=== PATIENT | male | born 1950 | race Caucasian/White ===

== ENCOUNTER 2017-12-20 16:36 | Inpatient (IN) ==
--- NOTE | 2017-12-20 20:02 | Emergency Department Note ---
Disposition Clinical Impression: History of treatment for malignancy, Cellulitis, Anemia, Elevated C-reactive protein (CRP), Lung mass Disposition: Admitted As Inpatient Referrals: NONE,PCP [Primary Care Provider] - Forms: ED Satisfaction Letter General Adult HPI - General Chief complaint: ED Wound/Laceration Stated complaint: Wound on back Source: patient Limitations: no limitations - History of Present Illness HPI Narrative: 67-year-old male with a history of malignancy reports emergency department the advice of his wound care physician Veronica Caicedo MD. the patient has evidently been treated for an open wound with cellulitis left posterior chest wall. The patient is being treated with antibiotics and has been poorly responsive. Per the wound care physician, the patient was seen today, and their recommendation was for the patient to come to the emergency department and be admitted for IV antibiotics. The patient's recent wound culture grew pseudomonas aeruginosa. The patient denies diabetes. There is no history of fever. He denies chest pain shortness breath abdominal pain leg swelling or pain coughing up blood or syncope. No vomiting or diarrhea. No difficulty moving the arms or legs and dependently. The patient denies any acute complaints or concerns but does note that his wound is still present and expresses concerns via his physician's advice regarding non-improving cellulitis and wound issues. The reports are that the patient has had wound packings placed recurrently. He is not sure what antibiotic he is on. Pain Scale: 7 - Related Data Home Medications Medication Instructions Recorded Confirmed Albuterol Neb [AccuNeb] 0.63 mg IH Q4H 09/06/15 12/20/17 Calcium Carbonate/Vitamin D3 1 each PO DAILY 09/06/15 12/20/17 [Calcium 500 + D Tablet] FentaNYL PATCH [Duragesic] 100 mcg TD Q72H 09/06/15 12/20/17 Ipratropium/Albuterol Neb [Duoneb] 3 ml IH Q6HR 09/06/15 12/20/17 Magnesium Oxide [Magnesium] 400 mg PO BID 09/06/15 12/20/17 Multivitamin [Multivitamins] 1 tab PO DAILY 09/06/15 12/20/17 Oxycodone HCl/Acetaminophen 1 tab PO Q6H PRN 09/06/15 12/20/17 [Percocet 10-325 mg Tablet] Oxygen 2 l IH HS 09/06/15 12/20/17 Albuterol Sulfate [Albuterol 1 puff IH AD 12/20/17 12/20/17 Inhaler] Fluticasone/Salmeterol [Advair 1 puff IH BID 12/20/17 12/20/17 500-50 Diskus] Previous Rx's Medication Instructions Recorded Docusate [Colace] 100 mg PO BID #60 capsule 07/13/15 Ascorbic Acid [Vitamin C] 500 mg PO DAILY #30 tablet 11/08/15 Cyanocobalamin (B-12) [Vitamin B12] 1,000 mcg PO DAILY #30 tablet 11/08/15 Ferrous Sulfate [Iron] 325 mg PO DAILY #30 capsule.er 12/11/16 Allergies Allergy/AdvReac Type Severity Reaction Status Date / Time No Known Allergies Allergy Verified 12/12/17 14:43 All systems ED: reviewed and negative except as stated. Past Medical History - Past Medical History Medical history: Reports: cancer, other Surgical history: Reports: no surgical history Psychiatric history: Reports: no psych history - Social History Smoking Status: Current every day smoker Smokeless Tobacco Status: No Alcohol use: Reports: none Drug use: Reports: none Physical Exam - General Limitations: no limitations General appearance: alert, in no apparent distress - Eye Eye exam: Present: normal appearance, PERRL, EOMI. Absent: scleral icterus - ENT ENT exam: normal exam, normal oropharynx, mucous membranes moist, TM's normal bilaterally, normal external ear exam - Neck Neck exam: Present: normal inspection, full ROM, trachea midline - Chest Chest inspection: Present: symmetric chest wall rise, tenderness, other (Wound left posterior chest medial to the scapula open drainage with cellulitic change no evidence of crepitance or blackening or blistering or streaking angitis way from the area, a large area of erythema is noted. I do not appreciate fluctuance.). Absent: normal inspection - Respiratory Respiratory exam: Present: normal lung sounds bilaterally. Absent: respiratory distress, wheezes, accessory muscle use, prolonged expiratory phase - Cardiovascular Cardiovascular exam: Present: regular rate, normal rhythm, normal heart sounds - Abdominal Exam Abdominal exam: Present: soft, Non-Tender. Absent: tenderness, distention, guarding, rebound, rigidity - Extremities Exam Extremities exam: Present: normal inspection, full ROM, normal capillary refill. Absent: tenderness, pedal edema, joint swelling, calf tenderness - Expanded Lower Extremity Exam Lower leg exam: Absent: Homans' sign Neurovascular/Tendon exam: Present: normal capillary refill. Absent: motor deficit, sensory deficit, tendon deficit, extremity cold to touch, pallor - Back Exam Back exam: Present: other (Posterior chest wall cellulitis with open wound as described above). Absent: normal inspection, tenderness, CVA tenderness (R), CVA tenderness (L) - Neurological Exam Neurological exam: Present: alert, oriented X3, CN II-XII intact. Absent: motor sensory deficit - Psychiatric Psychiatric exam: Present: normal affect, normal mood - Skin Skin exam: Present: warm, dry, other (No petechia or purpura) Course Vital Signs Temperature 97.8 F 12/20/17 16:37 Pulse Rate 95 12/20/17 16:37 Respiratory Rate 18 12/20/17 16:37 Blood Pressure 123/76 12/20/17 16:37 O2 Sat by Pulse Oximetry 98 12/20/17 16:37 Temperature 97.8 F 12/20/17 16:37 Pulse Rate 95 12/20/17 16:37 Respiratory Rate 18 12/20/17 16:37 Blood Pressure 123/76 12/20/17 16:37 O2 Sat by Pulse Oximetry 98 12/20/17 16:37 Oxygen Delivery Oxygen Delivery Room Air Medical Decision Making - MDM Narrative Medical decision making narrative: The patient appears to have not improving cellulitis, his CT scan indicates some air in the mass with apparent erosion of the mass into the chest wall through the skin. There is nothing to suggest lucas pneumothorax. IV vancomycin and Zosyn were ordered. The patient has a recent wound culture growing Pseudomonas. The cultures were sent. The patient is currently stable. Based on the patient's large mass, eroding into the chest wall and communicating with the external environment and notable gas in the mass as well as not improvement or worsening on current antibiotic therapy and the recommendation of the patient's technical specialist cytogenetics for hospital admission and IV antibiotics, I reviewed the case with the hospitalist on-call Dr. Bhat who discussed the case with CT surgery Dr. Kyle, the patient will be admitted to this institution for further evaluation. The patient is agreeable. He appears to be stable without evidence of overt sepsis. IV fluids were given. - Lab Data Lab results reviewed: Yes I reviewed the patient's lab results. Result diagrams: 12/20/17 20:01 12/20/17 20:01 Lab Results 12/20/17 12/20/17 12/20/17 Range/Units 20: 20: 20: WBC 10.0 (4.3-11.1) K/mcL RBC 5.07 (4.19-5.50) M/mcL Hgb 11.6 L (12.9-16.9) g/dL Hct 38.6 (37.5-50.1) % MCV 76.1 L (83.0-100.0) fL MCH 22.9 L (28.0-33.3) pg MCHC 30.1 L (31.6-35.5) g/dL RDW 15.6 H (11.5-14.5) % Plt Count 501 H (140-400) K/mcL MPV 8.7 L (9.4-12.4) fL Immature Gran % 0.2 (0-4) % Seg Neutrophils % 69.5 % Lymphocytes % 20.7 % Monocytes % 7.5 % Eosinophils % 1.4 % Basophils % 0.7 % Neutrophils # 6.9 (1.6-8.9) K/mcL Lymphocytes # 2.1 (0.6-4.6) K/mcL Monocytes # 0.8 (0.0-1.3) K/mcL Eosinophils # 0.1 (0.0-0.6) K/mcL Basophils # 0.1 (0.0-0.2) K/mcL Sodium 135 L (136-145) mEq/L Potassium 4.0 (3.5-5.1) mEq/L Chloride 99 (98-107) mEq/L Carbon Dioxide 30 H (23-29) mEq/L BUN 10 (8-23) mg/dL Creatinine 0.65 L (0.70-1.30) mg/dL Est GFR ( Amer) > 60 (> 60) Est GFR (Non-Af Amer) > 60 (> 60) BUN/Creatinine Ratio 15 (6-26) Glucose 145 H (70-105) mg/dL Calculated Osmolality 282 (280-300) Lactic Acid 0.8 (0.5-2.2) mmol/L Calcium 9.5 (8.6-10.3) mg/dL C-Reactive Protein 80 H (Less than 10) mg/L - Radiology Data Radiology results reviewed: Yes I reviewed the patient's radiology results.
[2017-12-20 20:11] LABS: Basophils # 0.1 K/mcL (0.0-0.2); Basophils % 0.7 %; Eosinophils # 0.1 K/mcL (0.0-0.6); Eosinophils % 1.4 %; Hematocrit 38.6 % (37.5-50.1); Hemoglobin 11.6 g/dL (12.9-16.9); Immature Granulocytes % 0.2 % (0-4); Lymphocytes # 2.1 K/mcL (0.6-4.6); Lymphocytes % 20.7 %; Mean Corpuscular HGB Conc 30.1 g/dL (31.6-35.5); Mean Corpuscular Hemoglobin 22.9 pg (28.0-33.3); Mean Corpuscular Volume 76.1 fL (83.0-100.0); Mean Platelet Volume 8.7 fL (9.4-12.4); Monocytes # 0.8 K/mcL (0.0-1.3); Monocytes % 7.5 %; Neutrophils # 6.9 K/mcL (1.6-8.9); Platelet Count 501 K/mcL (140-400); Red Blood Count 5.07 M/mcL (4.19-5.50); Red Cell Distribution Width 15.6 % (11.5-14.5); Segmented Neutrophils % 69.5 %
[2017-12-20 20:31] LABS: BUN/Creatinine Ratio 15 (6-26); Blood Urea Nitrogen 10 mg/dL (8-23); C-Reactive Protein 80 mg/L (Less than 10); Calcium 9.5 mg/dL (8.6-10.3); Carbon Dioxide 30 mEq/L (23-29); Chloride 99 mEq/L (98-107); Glucose 145 mg/dL (70-105); Osmolality,Calculated 282 (280-300); Sodium 135 mEq/L (136-145); eGFR For African Americans > 60 (> 60); eGFR For Non-African Americans > 60 (> 60)
[2017-12-20] MEDS ORDERED: Piperacillin/Tazobactam 3.375 GM in 0.9 % Sodium Chloride Mini Bag 100 ML IVPB ONE (22:13)
[2017-12-20] MEDS ORDERED: 0.9 % Sodium Chloride 1,000 ML IVC ONE (22:33)
[2017-12-21] MEDS: *HR* OxyCODONE/APAP 10/325 TABLET PO PRN ×4 (00:29→21:20)
[2017-12-21] MEDS ORDERED: Acetaminophen 325 MG TABLET PO PRN (02:44)
[2017-12-21] MEDS ORDERED: Naloxone 0.4 MG/ML INJ IVP PRN (02:44)
[2017-12-21] MEDS ORDERED: *HR* FentaNYL PATCH 50 MCG PATCH TD SCH (03:00)
[2017-12-21] MEDS ORDERED: Albuterol Neb 0.63 MG/3 ML VIAL IH SCH ×2 (03:00→04:00)
--- NOTE | 2017-12-21 03:45 | Internal Med History&Physical ---
Date of Encounter: 12/21/17 Time of Encounter: 02:00 Assessment and Plan (1) Tobacco abuse Current visit: Yes Status: Acute Nicotine patch placed (2) DVT prophylaxis Current visit: Yes Status: Acute Heparin SC (3) Abscess of skin Current visit: No Status: Acute Pt has chest wall wound. Culture shows pseudomonas. Place pt on zosyn. ER collect another wound culture and blood culture. Will f/u. - Consult cardiothoracic surgery for further management. Qualifiers: Site of cutaneous abscess: trunk Site of cutaneous abscess of trunk: chest wall Qualified Code(s): L02.213 - Cutaneous abscess of chest wall (4) Anemia Current visit: Yes Status: Acute Cont iron supplement Qualifiers: Anemia type: iron deficiency Qualified Code(s): D50.0 - Iron deficiency anemia secondary to blood loss (chronic) (5) Lung cancer Current visit: No Status: Suspected NSCLC s/p chemo and radiation. Pt will cont f/u with oncology as outpatient Qualifiers: Laterality: left Lung location: lower lobe of lung Qualified Code(s): C34.32 - Malignant neoplasm of lower lobe, left bronchus or lung Internal Medicine - H&P: HPI Chief complaint: Chest wall wound Admitted From: Home Plans for Post Hospital Care: Home History of present illness: Mr. 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 Pt has left chest wall wound b/o lung cancer metastasis. He is following oncology and wound care as outpatient and was found signs of infection of wound. Recent wound culture shows psuedomonas. Pt denies fever, chills. He has 3-4/10 constant pain. Pt has cough but at his baseline. He denies SOB. Pt has NSCLC since 2007 and had chemo and radiation therapy. Past Med Surg Social Fam HX - Past Medical History Medical history: cancer, other Psychiatric history: no psych history - Past Surgical History Surgical History: cholecystectomy - Social History Smoking Status: Current every day smoker Packs per day: 1/4 Smokeless Tobacco Status: No Alcohol use: none Drug use: none - Family History Brother Living Status: Cause of : Lung cancer Hx Family Cancer: Yes (Lung) Internal Medicine - H&P: Meds Docusate [Colace] 100 mg PO BID #60 capsule 07/13/15 [Rx] Albuterol Neb [AccuNeb] 0.63 mg IH Q4H 09/06/15 [History] Calcium Carbonate/Vitamin D3 [Calcium 500 + D Tablet] 1 each PO DAILY 09/06/15 [ History] FentaNYL PATCH [Duragesic] 100 mcg TD Q72H 09/06/15 [History] Ipratropium/Albuterol Neb [Duoneb] 3 ml IH Q6HR 09/06/15 [History] Magnesium Oxide [Magnesium] 400 mg PO BID 09/06/15 [History] Multivitamin [Multivitamins] 1 tab PO DAILY 09/06/15 [History] Oxycodone HCl/Acetaminophen [Percocet 10-325 mg Tablet] 1 tab PO Q6H PRN [History] Oxygen 2 l IH HS 09/06/15 [History] Ascorbic Acid [Vitamin C] 500 mg PO DAILY #30 tablet 11/08/15 [Rx] Cyanocobalamin (B-12) [Vitamin B12] 1,000 mcg PO DAILY #30 tablet 11/08/15 [Rx] Ferrous Sulfate [Iron] 325 mg PO DAILY #30 capsule.er 12/11/16 [Rx] Albuterol Sulfate [Albuterol Inhaler] 1 puff IH AD 12/20/17 [History] Fluticasone/Salmeterol [Advair 500-50 Diskus] 1 puff IH BID 12/20/17 [History] 3 Allergy/AdvReac Type Severity Reaction Status Date / Time No Known Allergies Allergy Verified 12/12/17 14:43 All Systems PM: A 10-system review of systems was performed and is negative for pertinent findings except as documented above in the HPI. - Constitutional Vitals: Temp Pulse Resp BP Pulse Ox 97.5 F L 92 14 135/80 98 12/20/17 23:32 12/20/17 23:32 12/20/17 23:32 12/20/17 23:32 12/20/17 23:32 General appearance: Present: A&O X 3, no acute distress, answers questions appropriately - Head Head exam: Present: atraumatic, normocephalic - Eye Eye exam: Present: PERRL, conjuntiva pink, sclera anicteric Pupils: Present: PERRL - Neck Neck exam general surgery: Present: supple, trachea midline. Absent: lymphadenopathy - Respiratory Respiratory exam: Present: CTAB. Absent: accessory muscle use, rales, rhonchi, wheezes Additional comments: Left posterior chest wall wound. - Cardiovascular Cardiovascular exam: Present: RRR, +S1, +S2. Absent: diastolic murmur, gallop, rubs, systolic murmur - GI/Abdominal GI/Abdominal exam: Present: normal bowel sounds, soft, no peritoneal signs. Absent: distended, tenderness - Extremities Exam Extremities exam: Present: warm, radial pulses palpable and symmetrical. Absent : calf tenderness, cyanotic, pedal edema - Neurological Exam Neurological exam: Present: CN II-XII intact, oriented X3, no focal deficits. Absent: pronater drift, facial droop, speech deficit - Skin Skin exam: Present: dry, intact Internal Med - H&P Results - Labs CBC & Chem 7: 12/20/17 20:01 12/20/17 20:01
[2017-12-21 04:52] LABS: Basophils # 0.1 K/mcL (0.0-0.2); Basophils % 0.7 %; Eosinophils # 0.1 K/mcL (0.0-0.6); Eosinophils % 1.2 %; Hematocrit 31.2 % (37.5-50.1); Immature Granulocytes % 0.2 % (0-4); Lymphocytes # 1.6 K/mcL (0.6-4.6); Lymphocytes % 18.8 %; Mean Corpuscular HGB Conc 30.4 g/dL (31.6-35.5); Mean Corpuscular Volume 75.5 fL (83.0-100.0); Mean Platelet Volume 9.3 fL (9.4-12.4); Monocytes # 0.6 K/mcL (0.0-1.3); Monocytes % 6.8 %; Neutrophils # 6.2 K/mcL (1.6-8.9); Platelet Count 434 K/mcL (140-400); Red Blood Count 4.13 M/mcL (4.19-5.50); Red Cell Distribution Width 15.6 % (11.5-14.5); Segmented Neutrophils % 72.3 %
[2017-12-21] MEDS: Ipratropium/Albuterol Neb 3 ML IH SCH ×4 (04:54→21:45)
[2017-12-21 04:57] LABS: Hemoglobin 9.5 g/dL (12.9-16.9)
[2017-12-21 05:09] LABS: BUN/Creatinine Ratio 14 (6-26); Blood Urea Nitrogen 7 mg/dL (8-23); Calcium 8.4 mg/dL (8.6-10.3); Carbon Dioxide 27 mEq/L (23-29); Chloride 106 mEq/L (98-107); Glucose 112 mg/dL (70-105); Magnesium 1.8 mg/dL (1.6-2.6); Osmolality,Calculated 281 (280-300); Potassium 3.8 mEq/L (3.5-5.1); Sodium 136 mEq/L (136-145); eGFR For African Americans > 60 (> 60); eGFR For Non-African Americans > 60 (> 60)
[2017-12-21] MEDS: *HR* Heparin 5,000 UNIT/ML VIAL SQ SCH ×2 (05:29→18:55)
[2017-12-21] MEDS: *HR* FentaNYL PATCH 100 MCG PATCH TD SCH (05:29)
--- NOTE | 2017-12-21 07:53 | Cardiothoracic Consult Note ---
Date of Encounter: 12/21/17 Time of Encounter: 07:51 Assessment and Plan (1) Abscess of skin Current Visit: No Status: Acute The assessment and plan as outlined above was discussed with the patient and/or family members who expressed understanding and agreement. All questions were answered. I feel that the patient should undergo urgent chemotherapy and radiation therapy. 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 His only surgical option will be extremely high risk surgery with probable pneumonectomy, chest wall resection, chest wall reconstruction with muscle flaps and possible muscle flap closure of the bronchus. This would need to be done in [place] where plastic surgery is available to perform muscle flaps. Qualifiers: Site of cutaneous abscess: trunk Site of cutaneous abscess of trunk: chest wall Qualified Code(s): L02.213 - Cutaneous abscess of chest wall - History of Present Illness History of present illness: Mr. Donis is a 67 year old male The patient is a 67-year-old gentleman with a long history of smoking. He used to smoke 2 packs of cigarettes per day, but now is down to 1 pack of cigarettes per day. He has a known left lower lobe mass which was invading the chest wall. This has perforated the chest wall. There is now air in the mass he has been told that he is not a candidate for chemotherapy or radiation therapy, because of infection and pus drainage from the tumor. Past Med Surg Social Fam HX - Past Medical History Medical history: cancer, other Psychiatric history: no psych history - Past Surgical History Surgical History: cholecystectomy - Social History Smoking Status: Current every day smoker Packs per day: 1/4 Smokeless Tobacco Status: No Alcohol use: none Drug use: none - Family History Brother Living Status: Cause of : Lung cancer Hx Family Cancer: Yes (Lung) Medications and Allergies Docusate [Colace] 100 mg PO BID #60 capsule 07/13/15 [Rx] Albuterol Neb [AccuNeb] 0.63 mg IH Q4H 09/06/15 [History] Calcium Carbonate/Vitamin D3 [Calcium 500 + D Tablet] 1 each PO DAILY 09/06/15 [ History] FentaNYL PATCH [Duragesic] 100 mcg TD Q72H 09/06/15 [History] Ipratropium/Albuterol Neb [Duoneb] 3 ml IH Q6HR 09/06/15 [History] Magnesium Oxide [Magnesium] 400 mg PO BID 09/06/15 [History] Multivitamin [Multivitamins] 1 tab PO DAILY 09/06/15 [History] Oxycodone HCl/Acetaminophen [Percocet 10-325 mg Tablet] 1 tab PO Q6H PRN [History] Oxygen 2 l IH HS 09/06/15 [History] Ascorbic Acid [Vitamin C] 500 mg PO DAILY #30 tablet 11/08/15 [Rx] Cyanocobalamin (B-12) [Vitamin B12] 1,000 mcg PO DAILY #30 tablet 11/08/15 [Rx] Ferrous Sulfate [Iron] 325 mg PO DAILY #30 capsule.er 12/11/16 [Rx] Albuterol Sulfate [Albuterol Inhaler] 1 puff IH AD 12/20/17 [History] Fluticasone/Salmeterol [Advair 500-50 Diskus] 1 puff IH BID 12/20/17 [History] 3 Allergy/AdvReac Type Severity Reaction Status Date / Time No Known Allergies Allergy Verified 12/12/17 14:43 All Systems Review: The remainder of the systems were reviewed and are negative Physical Examination Vital Signs, Last 4 Hours Temp Pulse Resp BP Pulse Ox 12/21/17 07:39 98.1 F 82 16 124/77 100 12/21/17 04:59 16 98 Lungs have decreased breath sounds in the left base. There is necrosis and cellulitis of the skin and the tumor has perforated out to the skin. There appears to be gross tumor involving the skin and chest wall. Results 12/21/17 03:36 12/21/17 03:36 Lab Results, Last 24 hours 12/21/17 12/21/17 03:36 03:36 WBC 8.6 Hgb 9.5 L D Hct 31.2 L Plt Count 434 H Sodium 136 Potassium 3.8 Chloride 106 Carbon Dioxide 27 BUN 7 L Creatinine 0.51 L Glucose 112 H Calcium 8.4 L Magnesium 1.8 Consult Discharge Plan - Plan Referrals: NONE,PCP [Primary Care Provider] -
[2017-12-21] MEDS: Ascorbic Acid 500 MG TABLET PO SCH (08:22)
[2017-12-21] MEDS: Magnesium Oxide 400 MG TABLET PO SCH ×2 (08:22→21:20)
[2017-12-21] MEDS: Nicotine 14 MG PATCH.TD24 TD SCH (08:22)
[2017-12-21] MEDS: Cyanocobalamin (B-12) 1,000 MCG TABLET PO SCH (08:22)
[2017-12-21] MEDS: Multivit/Ca/Min/Fe/FA 1 TAB TABLET PO SCH (08:22)
[2017-12-21] MEDS: Piperacillin/Tazobactam 3.375 GM in 0.9 % Sodium Chloride Mini Bag 100 ML IVPB SCH ×2 (08:22→17:15)
--- NOTE | 2017-12-21 09:17 | Event Note ---
Date of Encounter: 12/21/17 Time of Encounter: 09:14 Mr. 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 Pt has left chest wall wound b/o lung cancer metastasis. He is following oncology and wound care as outpatient and was found signs of infection of wound. Recent wound culture shows psuedomonas. Pt denies fever, chills. He has 3-4/10 constant pain. Pt has cough but at his baseline. He denies SOB. Pt has NSCLC since 2007 and had chemo and radiation therapy. CTS surgery was consulted, they recommended for chemotherapy and radiation. I consult oncologist, spoke to parveen. And they have ranged a biopsy with interventional radiologist. Patient is clinically doing well, he complains pain from the wound area 8 out of 10, sharp and wounf is draining some clear fluids.
[2017-12-21] MEDS: Budesonide/Formoterol 160/4.5 MDI IH SCH ×2 (11:13→21:45)
--- NOTE | 2017-12-21 14:54 | Oncology Inp Consult Note ---
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 He has completed concurrent chemoradiation with 75 Gy of radiation with Navelbine, cetuximab at the [facility] and he has had no prior evidence of radiographic recurrence. PET scan 12/05 as detailed above concerning for worsening disease burden and superimposed infection. He has a worsening left infrascapular abscess with presumed tumor involvement and culture proven pseudomonas infection. Awaiting second wound culture results and blood cx. Zosyn IV ATB. Cardiothoracic consult reviewed, appreciate recommendations. We will plan to proceed with core needle biopsy of the left lung mass. Following this we may discuss referral for surgical intervention with patient. If biopsy confirms malignancy recurrence he will likely not be candidate for chemotherapy until infection resolves or improves. Discussed plan with Dr. Nieves, patients treating oncologist. Plan as outlined above discussed with patient in details who understands and agrees with plan of care. - Data of Consult Patient: known to practice within the last 3 years Consult date: 12/21/17 Requesting Physician: Estefania Lara MD Primary Care Provider: PCP NONE - Consult Narrative Reason for consult: History of non small cell left lung cancer History of present illness: Mr. Donis is a 67 year old male with oncologic history significant for stage III T4 N1 M0 poorly differentiated lung cancer, [id number], with extension to left lower chest wall, diagnosis February 2008. Size 5 x 5.4 cm, squamous cell, poorly differentiated carcinoma. Prior treatment: Completed concurrent chemoradiation with 75 Gy of radiation with Navelbine, cetuximab at the [facility]. Sine this time he has had no evidence of radiographic recurrence and has been in remission. However, PET scan on 12/05/2017 showed interval worsening since August 2017 of disease burden in the left hemithorax extending through the chest wall involving ribs and subcutaneous tissues. Superimposed infection would be difficult to exclude. No uptake in the mediastinal lymph nodes and no disease below the diaphragm. This was discussed thoracic tumor board. Consensus was to send him for thoracic surgery for further wound debridement and possible biopsy to see if there is recurrence of cancer. He most recently presented to clinic following ER visit for left infrascapular abscess. Wound culture resulted pseudomonas. Stopped bactrim, started dual ATB therapy with Cipro and Omnicef [id number]. He was referred to [facility] wound care clinic, and thoracic surgery as discussed above. He presented to ER with increasing left chest wall pain and increased wound drainage concerning for worsening infection. Past Med Surg Social Fam HX - Past Medical History Medical history: cancer, other Psychiatric history: no psych history - Past Surgical History Surgical History: cholecystectomy - Social History Smoking Status: Current every day smoker Packs per day: 10/25 Smokeless Tobacco Status: No Alcohol use: none Drug use: none - Family History Brother Living Status: Cause of : Lung cancer Hx Family Cancer: Yes (Lung) Medications and Allergies RX: Docusate [Colace] 100 mg PO BID #60 capsule 07/13/15 [Rx] Albuterol Neb [AccuNeb] 0.63 mg IH Q4H 09/06/15 [History] Calcium Carbonate/Vitamin D3 [Calcium 500 + D Tablet] 1 each PO DAILY 09/06/15 [ History] FentaNYL PATCH [Duragesic] 100 mcg TD Q72H 09/06/15 [History] Ipratropium/Albuterol Neb [Duoneb] 3 ml IH Q6HR 09/06/15 [History] Magnesium Oxide [Magnesium] 400 mg PO BID 09/06/15 [History] Multivitamin [Multivitamins] 1 tab PO DAILY 09/06/15 [History] Oxycodone HCl/Acetaminophen [Percocet 10-325 mg Tablet] 1 tab PO Q6H PRN [History] RX: Oxygen 2 l IH HS 09/06/15 [History] Ascorbic Acid [Vitamin C] 500 mg PO DAILY #30 tablet 11/08/15 [Rx] Cyanocobalamin (B-12) [Vitamin B12] 1,000 mcg PO DAILY #30 tablet 11/08/15 [Rx] Ferrous Sulfate [Iron] 325 mg PO DAILY #30 capsule.er 12/11/16 [Rx] Fluticasone/Salmeterol [Advair 500-50 Diskus] 1 puff IH BID 12/20/17 [History] RX: Albuterol Sulfate [Albuterol Inhaler] 1 puff IH AD 12/20/17 [History] 3 Allergy/AdvReac Type Severity Reaction Status Date / Time No Known Allergies Allergy Verified 12/12/17 14:43 Constitutional: Present: as per HPI, fatigue, weight loss. Absent: chills, fever(s), frequent falls Eyes: Absent: change in vision Nose, mouth and throat: Absent: mouth lesions Cardiovascular: Absent: chest pain, irregular heart rhythm, palpitations Respiratory: Present: cough, dyspnea on exertion. Absent: hemoptysis Gastrointestinal: Absent: abdominal pain, dysphagia, hematemesis, hematochezia Additional comments: denies dysuria or hematuria Musculoskeletal: Absent: numbness, tingling Integumentary: Present: as per HPI Neurological: Absent: focal weakness Hematologic/Lymphatic: Present: as per HPI Oncology - Exam - Constitutional Vitals: Temp Pulse Resp BP Pulse Ox 98.9 F 71 14 114/66 97 12/21/17 11:00 12/21/17 11:00 12/21/17 11:00 12/21/17 11:00 12/21/17 11:00 General appearance: cooperative, no acute distress, no febrile Exam: chronically ill appearing - Head Head exam: Present: atraumatic - ENT ENT exam: Present: mucous membranes moist - Respiratory Respiratory exam: Present: CTAB - Cardiovascular Cardiovascular exam: Present: RRR, +S1, +S2 - GI/Abdominal GI/Abdominal exam: Present: normal bowel sounds, soft. Absent: tenderness - Extremities Exam Extremities exam: Absent: calf tenderness - Neurological Exam Neurological exam: Present: alert, oriented X3, no focal deficits, strengths equal and symetr throughout - Psychiatric Psychiatric exam: Present: normal affect, normal mood - Skin Skin exam: Present: normal color, warm Additional comments: left infrascapular abscess with surrounding induration and purulent drainage. Anterior left lower rib cage deformity. Oncology - Results Labs: Short CBC 12/21/17 Range/Units 03:36 WBC 8.6 (4.3-11.1) K/mcL Hgb 9.5 L D (12.9-16.9) g/dL Hct 31.2 L (37.5-50.1) % Plt Count 434 H (140-400) K/mcL Neutrophils # 6.2 (1.6-8.9) K/mcL BMP 12/21/17 03:36 Sodium 136 Potassium 3.8 Chloride 106 Carbon Dioxide 27 BUN 7 L Creatinine 0.51 L Glucose 112 H Calcium 8.4 L Consult Discharge Plan - Plan Referrals: NONE,PCP [Primary Care Provider] -
[2017-12-21] MEDS: VITAMIN D3 PO SCH (15:16)
[2017-12-21] MEDS: CALCIUM CARBONATE PO SCH (15:16)
[2017-12-22] MEDS: Piperacillin/Tazobactam 3.375 GM in 0.9 % Sodium Chloride Mini Bag 100 ML IVPB SCH ×3 (00:55→17:41)
[2017-12-22 02:26] LABS: INR 1.5; Prothrombin Time 15.8 Seconds (9.4-12.1)
[2017-12-22 02:48] LABS: BUN/Creatinine Ratio 20 (6-26); Blood Urea Nitrogen 11 mg/dL (8-23); Calcium 8.7 mg/dL (8.6-10.3); Carbon Dioxide 28 mEq/L (23-29); Chloride 107 mEq/L (98-107); Glucose 116 mg/dL (70-105); Osmolality,Calculated 288 (280-300); Potassium 3.8 mEq/L (3.5-5.1); Sodium 139 mEq/L (136-145); eGFR For African Americans > 60 (> 60); eGFR For Non-African Americans > 60 (> 60)
[2017-12-22] MEDS: Ipratropium/Albuterol Neb 3 ML IH SCH ×4 (04:26→22:07)
[2017-12-22] MEDS: *HR* OxyCODONE/APAP 10/325 TABLET PO PRN ×3 (06:21→19:15)
[2017-12-22] MEDS: *HR* Heparin 5,000 UNIT/ML VIAL SQ SCH ×2 (06:22→17:41)
[2017-12-22] MEDS: VITAMIN D3 PO SCH (08:46)
[2017-12-22] MEDS: CALCIUM CARBONATE PO SCH (08:46)
[2017-12-22] MEDS: Cyanocobalamin (B-12) 1,000 MCG TABLET PO SCH (08:58)
[2017-12-22] MEDS: Multivit/Ca/Min/Fe/FA 1 TAB TABLET PO SCH (08:58)
[2017-12-22] MEDS: Magnesium Oxide 400 MG TABLET PO SCH ×2 (08:58→20:11)
[2017-12-22] MEDS: Ascorbic Acid 500 MG TABLET PO SCH (08:58)
[2017-12-22] MEDS: Nicotine 14 MG PATCH.TD24 TD SCH (08:59)
[2017-12-22] MEDS: Budesonide/Formoterol 160/4.5 MDI IH SCH ×2 (10:28→22:07)
--- NOTE | 2017-12-22 13:03 | Cardiothoracic Progress Note ---
Date of Encounter: 12/22/17 Time of Encounter: 13:05 - Subjective Procedure(s) Performed: Patient seen and examined. Has no new complaints. 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 Discussed planned for possible chemotherapy and radiation. Available to assist in management as needed. Vital Signs, Last 4 Hours Temp Pulse Resp BP Pulse Ox 12/22/17 11:54 97.9 F 74 15 105/65 99 12/22/17 10:29 18 98 Oxgyen Flow Rate Oxygen Flow Rate (LPM) 21 - Labs 12/21/17 03:36 12/22/17 01:57 Lab Results, Last 24 hours 12/22/17 12/22/17 01:57 01:57 INR 1.5 Sodium 139 Potassium 3.8 Chloride 107 Carbon Dioxide 28 BUN 11 Creatinine 0.56 L Glucose 116 H Calcium 8.7 Consult Discharge Plan - Plan Referrals: NONE,PCP [Primary Care Provider] -
--- NOTE | 2017-12-22 18:19 | Internal Med Progress Note ---
Date of Encounter: 12/22/17 Time of Encounter: 17:52 - Assessment and plan (1) Abscess of skin Current Visit: Yes Status: Acute Assessment and plan: Left infrascapular chest wall abscess/wound. Cardiothoracic surgery and oncology consulted; appreciate input. No surgical intervention planned at this time. Wound culture grew pseudomonas. Continue IV zosyn. Blood cultures x 2 preliminary no growth to date. Follow up on new wound culture and final blood cultures. Qualifiers: Site of cutaneous abscess: trunk Site of cutaneous abscess of trunk: chest wall Qualified Code(s): L02.213 - Cutaneous abscess of chest wall (2) Lung cancer Current Visit: Yes Status: Suspected Assessment and plan: Oncology consulted; appreciate input. Will defer management to them. Scheduled for IR guided lung biopsy tomorrow. Qualifiers: Laterality: left Lung location: lower lobe of lung Qualified Code(s): C34.32 - Malignant neoplasm of lower lobe, left bronchus or lung (3) Anemia Current Visit: Yes Status: Acute Assessment and plan: Continue iron supplementation. Qualifiers: Anemia type: iron deficiency Qualified Code(s): D50.0 - Iron deficiency anemia secondary to blood loss (chronic) (4) Tobacco abuse Current Visit: Yes Status: Acute Assessment and plan: Continue nicotine transdermal. (5) DVT prophylaxis Current Visit: Yes Status: Acute Assessment and plan: Continue heparin SC. - Time Spent With Patient less than 15 minutes - Subjective Interval history: Patient had no acute events overnight. He has no complaints today. He states that he is scheduled for lung biopsy by oncologist. - Constitutional Vitals: Temp Pulse Resp BP Pulse Ox 98.2 F 79 15 103/67 99 12/22/17 16:21 12/22/17 16:21 12/22/17 16:21 12/22/17 16:21 12/22/17 16:21 General appearance: Present: A&O X 3, no acute distress, answers questions appropriately - Respiratory Respiratory exam: Present: CTAB. Absent: accessory muscle use, rales, rhonchi, wheezes Additional comments: Normal WOB - Cardiovascular Cardiovascular exam: Present: RRR, +S1, +S2. Absent: diastolic murmur, gallop, rubs, systolic murmur Additional comments: No BLE edema - GI/Abdominal GI/Abdominal exam: Present: normal bowel sounds, soft. Absent: distended, hepatomegaly, mass, splenomegaly, tenderness - Psychiatric Psychiatric exam: Present: normal affect, normal mood. Absent: anxious, depressed - Skin Skin exam: Present: dry, warm. Absent: cyanosis Additional comments: Left infrascapular abscess with 1.5 cm diameter central ulceration with surrounding induration and minimal purulent drainage. Internal Medicine: Result - Labs CBC & Chem 7: 12/21/17 03:36 12/22/17 01:57 Labs: BMP 12/22/17 01:57 Sodium 139 Potassium 3.8 Chloride 107 Carbon Dioxide 28 BUN 11 Creatinine 0.56 L Glucose 116 H Calcium 8.7 - ABG Interpretation ABG results: PT/INR, D-dimer PT 15.8 Seconds (9.4-12.1) H 12/22/17 01:57 Consult Discharge Plan - Plan Referrals: NONE,PCP [Primary Care Provider] -
[2017-12-23] MEDS: Piperacillin/Tazobactam 3.375 GM in 0.9 % Sodium Chloride Mini Bag 100 ML IVPB SCH ×4 (00:55→23:57)
[2017-12-23] MEDS: *HR* OxyCODONE/APAP 10/325 TABLET PO PRN ×4 (01:08→21:05)
[2017-12-23] MEDS: Ipratropium/Albuterol Neb 3 ML IH SCH ×4 (04:37→22:04)
[2017-12-23] MEDS: *HR* Heparin 5,000 UNIT/ML VIAL SQ SCH ×2 (05:57→18:16)
[2017-12-23 06:56] LABS: INR 1.4; Prothrombin Time 14.7 Seconds (9.4-12.1)
[2017-12-23] MEDS: Multivit/Ca/Min/Fe/FA 1 TAB TABLET PO SCH (08:35)
[2017-12-23] MEDS: Cyanocobalamin (B-12) 1,000 MCG TABLET PO SCH (08:35)
[2017-12-23] MEDS: VITAMIN D3 PO SCH (08:35)
[2017-12-23] MEDS: CALCIUM CARBONATE PO SCH (08:35)
[2017-12-23] MEDS: Magnesium Oxide 400 MG TABLET PO SCH ×2 (08:35→19:57)
[2017-12-23] MEDS: Nicotine 14 MG PATCH.TD24 TD SCH (08:35)
[2017-12-23] MEDS: Ascorbic Acid 500 MG TABLET PO SCH (08:35)
--- NOTE | 2017-12-23 09:14 | Cardiothoracic Progress Note ---
Date of Encounter: 12/23/17 Time of Encounter: 09:15 - Subjective Interval history: Patient without any new complaints. He states his appetite is somewhat poor but eating without nausea or vomiting. Denies any events overnight. Currently sitting up in bed. Vital Signs, Last 4 Hours Temp Pulse Resp BP Pulse Ox 12/23/17 06:41 97.6 F 80 18 106/65 96 Oxgyen Flow Rate Oxygen Flow Rate (LPM) 2 - Physical Examination Lungs: Other (Left posterior chest wall wound dressing intact without evidence of drainage or soilage) - Labs 12/21/17 03:36 12/22/17 01:57 Lab Results, Last 24 hours 12/23/17 05:54 INR 1.4 Consult Discharge Plan - Plan Referrals: NONE,PCP [Primary Care Provider] -
[2017-12-23] MEDS: Budesonide/Formoterol 160/4.5 MDI IH SCH ×2 (10:28→22:04)
[2017-12-23] MEDS ORDERED: *HR* FentaNYL (PF) 100 MCG/2 ML VIAL IVP PRN (18:23)
--- NOTE | 2017-12-23 19:03 | Internal Med Progress Note ---
Date of Encounter: 12/23/17 Time of Encounter: 19:01 - Assessment and plan (1) Abscess of skin Current Visit: Yes Status: Acute Assessment and plan: Left infrascapular chest wall abscess/wound. Cardiothoracic surgery and oncology consulted; appreciate input. No surgical intervention planned at this time. Wound culture grew pseudomonas. Continue IV zosyn. Blood cultures x 2 preliminary no growth to date. Follow up on new wound culture and final blood cultures. Continue percocet for pain. Will add fentanyl 25 mcg IV Q6H PRN for breakthrough pain. Qualifiers: Site of cutaneous abscess: trunk Site of cutaneous abscess of trunk: chest wall Qualified Code(s): L02.213 - Cutaneous abscess of chest wall (2) Lung cancer Current Visit: Yes Status: Suspected Assessment and plan: Oncology consulted; appreciate input. Will defer management to them. Scheduled for IR guided lung biopsy tomorrow. NPO after midnight. Qualifiers: Laterality: left Lung location: lower lobe of lung Qualified Code(s): C34.32 - Malignant neoplasm of lower lobe, left bronchus or lung (3) Anemia Current Visit: Yes Status: Chronic Assessment and plan: Continue iron supplementation. Qualifiers: Anemia type: iron deficiency Qualified Code(s): D50.0 - Iron deficiency anemia secondary to blood loss (chronic) (4) Tobacco abuse Current Visit: Yes Status: Chronic Assessment and plan: Continue nicotine transdermal. (5) DVT prophylaxis Current Visit: Yes Status: Acute Assessment and plan: Continue heparin SC. - Time Spent With Patient less than 15 minutes - Subjective Interval history: Patient had no acute events overnight. He is scheduled for core needle biopsy tomorrow. His only complaint is some worsening of pain not fully controlled by percocet. - Constitutional Vitals: Temp Pulse Resp BP Pulse Ox 98.5 F 80 18 103/63 98 12/23/17 15:38 12/23/17 15:38 12/23/17 15:39 12/23/17 15:38 12/23/17 15:39 General appearance: Present: A&O X 3, no acute distress, answers questions appropriately - Respiratory Respiratory exam: Present: CTAB. Absent: accessory muscle use, rales, rhonchi, wheezes Additional comments: Normal WOB - Cardiovascular Cardiovascular exam: Present: RRR, +S1, +S2. Absent: diastolic murmur, gallop, rubs, systolic murmur Additional comments: No BLE edema - GI/Abdominal GI/Abdominal exam: Present: normal bowel sounds, soft. Absent: distended, hepatomegaly, mass, splenomegaly, tenderness - Psychiatric Psychiatric exam: Present: normal affect, normal mood. Absent: anxious, depressed - Skin Skin exam: Present: dry, warm. Absent: cyanosis, rash Additional comments: Left infrascapular abscess with 1.5 cm diameter central ulceration with surrounding induration and minimal purulent drainage. Internal Medicine: Result - Labs CBC & Chem 7: 12/21/17 03:36 12/22/17 01:57 - ABG Interpretation ABG results: PT/INR, D-dimer PT 14.7 Seconds (9.4-12.1) H 12/23/17 05:54 Consult Discharge Plan - Plan Referrals: NONE,PCP [Primary Care Provider] -
[2017-12-24] MEDS: *HR* FentaNYL PATCH 100 MCG PATCH TD SCH (03:11)
[2017-12-24] MEDS: *HR* OxyCODONE/APAP 10/325 TABLET PO PRN ×4 (03:54→22:31)
[2017-12-24] MEDS: Ipratropium/Albuterol Neb 3 ML IH SCH ×4 (04:30→21:30)
[2017-12-24 04:52] LABS: INR 1.4; Prothrombin Time 14.7 Seconds (9.4-12.1)
[2017-12-24] MEDS: *HR* Heparin 5,000 UNIT/ML VIAL SQ SCH ×2 (06:40→16:23)
[2017-12-24] MEDS: Ascorbic Acid 500 MG TABLET PO SCH (07:37)
[2017-12-24] MEDS: Cyanocobalamin (B-12) 1,000 MCG TABLET PO SCH (07:37)
[2017-12-24] MEDS: CALCIUM CARBONATE PO SCH (07:37)
[2017-12-24] MEDS: Magnesium Oxide 400 MG TABLET PO SCH ×2 (07:37→19:33)
[2017-12-24] MEDS: Multivit/Ca/Min/Fe/FA 1 TAB TABLET PO SCH (07:37)
[2017-12-24] MEDS: VITAMIN D3 PO SCH (07:37)
[2017-12-24] MEDS: Nicotine 14 MG PATCH.TD24 TD SCH (07:38)
[2017-12-24] MEDS: Piperacillin/Tazobactam 3.375 GM in 0.9 % Sodium Chloride Mini Bag 100 ML IVPB SCH ×2 (07:54→16:24)
[2017-12-24] MEDS: Budesonide/Formoterol 160/4.5 MDI IH SCH ×2 (11:11→21:30)
[2017-12-24 11:27] LABS: Basophils % 0.5 %; Eosinophils # 0.1 K/mcL (0.0-0.6); Eosinophils % 0.7 %; Hematocrit 38.1 % (37.5-50.1); Immature Granulocytes % 0.4 % (0-4); Lymphocytes # 1.4 K/mcL (0.6-4.6); Lymphocytes % 18.3 %; Mean Corpuscular HGB Conc 29.7 g/dL (31.6-35.5); Mean Corpuscular Hemoglobin 22.8 pg (28.0-33.3); Mean Platelet Volume 9.2 fL (9.4-12.4); Monocytes # 0.5 K/mcL (0.0-1.3); Monocytes % 6.4 %; Neutrophils # 5.5 K/mcL (1.6-8.9); Platelet Count 447 K/mcL (140-400); Red Blood Count 4.95 M/mcL (4.19-5.50); Segmented Neutrophils % 73.7 %
[2017-12-24 11:35] LABS: Hemoglobin 11.3 g/dL (12.9-16.9)
[2017-12-24 11:44] LABS: Alanine Aminotransferase 25 Units/L (7-52); Albumin 3.4 g/dL (3.5-5.7); Albumin/Globulin Ratio 0.9 (1.1-2.2); Alkaline Phosphatase 70 Units/L (34-104); Aspartate Amino Transferase 25 Units/L (13-39); BUN/Creatinine Ratio 16 (6-26); Bilirubin,Total 0.2 mg/dL (0.3-1.0); Blood Urea Nitrogen 9 mg/dL (8-23); Calcium 9.4 mg/dL (8.6-10.3); Carbon Dioxide 26 mEq/L (23-29); Chloride 105 mEq/L (98-107); Globulin 3.9 g/dL (2.4-3.5); Glucose 99 mg/dL (70-105); Osmolality,Calculated 283 (280-300); Sodium 137 mEq/L (136-145); Total Protein 7.3 g/dL (6.4-8.9); eGFR For African Americans > 60 (> 60); eGFR For Non-African Americans > 60 (> 60)
[2017-12-24] MEDS ORDERED: *HR* FentaNYL (PF) 100 MCG/2 ML VIAL IVP ONE (11:51)
[2017-12-24] MEDS ORDERED: *HR* Midazolam HCl 2 MG/2 ML VIAL IVP ONE (11:51)
--- NOTE | 2017-12-24 12:57 | Pre-Sedation Evaluation ---
Pre-sedation evaluation - Pre-sedation checklist Date of procedure: 12/24/17 Procedure: lung biopsy Recent Vitals: Last Vital Signs Temp 97.9 F 12/24/17 11:17 Pulse 92 12/24/17 12:27 Resp 17 12/24/17 12:27 BP 129/73 12/24/17 12:27 Pulse Ox 100 12/24/17 12:27 H&P (including ROS) documented in medical record: Yes Previous reaction to sedatives/anesthetics: No Dietary Status: NPO after Midnight Airway Assessment: Patient can open mouth completely, TMJ function normal, Micrognathia (under-bite, receding chin) absent, Neck with adequate range of motion ASA Classification *see protocol: CLASS II-Mild systemic disease Plan of Care: Pt appropriate candidate for procedure/moderate/conscious sedation , Risks/benefits of procedure/sedation discussed w/ patient/family, If not NPO; Risk of intake outweiged by necessity to perform procedure
--- NOTE | 2017-12-24 12:58 | IR Procedure Note ---
Date of procedure: 12/24/17 Consent Obtained: Verbal consent, Written consent Timeout: Correct patient and procedure verified, Correct site verified, Time out performed, Skin prep completed Procedure Performed: left lung bx Was there an practice assistant present: No Estimated blood loss (cc): 2 Complications: None; Tolerated procedure well Post Procedure Treatment Plan: CXR Specimen: 4 cores
--- NOTE | 2017-12-24 20:18 | Internal Med Progress Note ---
Date of Encounter: 12/24/17 Time of Encounter: 20:16 - Assessment and plan (1) Abscess of skin Current Visit: Yes Status: Acute Assessment and plan: Left infrascapular chest wall abscess/wound. Cardiothoracic surgery and oncology consulted; appreciate input. No surgical intervention planned at this time. Wound culture grew pseudomonas. Continue IV zosyn. Blood cultures x 2 preliminary no growth to date. Follow up on new wound culture and final blood cultures. Continue percocet and fentanyl for pain. Qualifiers: Site of cutaneous abscess: trunk Site of cutaneous abscess of trunk: chest wall Qualified Code(s): L02.213 - Cutaneous abscess of chest wall (2) Lung cancer Current Visit: Yes Status: Suspected Assessment and plan: Oncology consulted; appreciate input. Will defer management to them. Scheduled for IR guided lung biopsy today. Resume diet after. Qualifiers: Laterality: left Lung location: lower lobe of lung Qualified Code(s): C34.32 - Malignant neoplasm of lower lobe, left bronchus or lung (3) Anemia Current Visit: Yes Status: Chronic Assessment and plan: Continue iron supplementation. Qualifiers: Anemia type: iron deficiency Qualified Code(s): D50.0 - Iron deficiency anemia secondary to blood loss (chronic) (4) Tobacco abuse Current Visit: Yes Status: Chronic Assessment and plan: Continue nicotine transdermal. (5) DVT prophylaxis Current Visit: Yes Status: Acute Assessment and plan: Continue heparin SC. - Time Spent With Patient less than 15 minutes - Subjective Interval history: Patient had no acute events overnight. He is scheduled for core needle biopsy today. He states that pain control is much better. He denies fever, chills, nausea, or vomiting. He has no new complaints. - Constitutional Vitals: Temp Pulse Resp BP Pulse Ox 97.9 F 83 18 127/71 97 12/24/17 19:07 12/24/17 19:07 12/24/17 19:07 12/24/17 19:07 12/24/17 19:07 General appearance: Present: A&O X 3, no acute distress, answers questions appropriately - Respiratory Respiratory exam: Present: CTAB. Absent: accessory muscle use, rales, rhonchi, wheezes Additional comments: Normal WOB - Cardiovascular Cardiovascular exam: Present: RRR, +S1, +S2. Absent: diastolic murmur, gallop, rubs, systolic murmur Additional comments: No BLE edema - GI/Abdominal GI/Abdominal exam: Present: normal bowel sounds, soft. Absent: distended, hepatomegaly, mass, splenomegaly, tenderness - Psychiatric Psychiatric exam: Present: normal affect, normal mood. Absent: anxious, depressed - Skin Skin exam: Present: warm. Absent: cyanosis Additional comments: Left infrascapular abscess with 1.5 cm diameter central ulceration with surrounding induration and minimal purulent drainage. Internal Medicine: Result - Labs CBC & Chem 7: 12/24/17 10:01 12/24/17 10:01 Labs: Short CBC 12/24/17 Range/Units 10:01 WBC 7.5 (4.3-11.1) K/mcL Hgb 11.3 L D (12.9-16.9) g/dL Hct 38.1 (37.5-50.1) % Plt Count 447 H (140-400) K/mcL Neutrophils # 5.5 (1.6-8.9) K/mcL BMP 12/24/17 10:01 Sodium 137 Potassium 4.0 Chloride 105 Carbon Dioxide 26 BUN 9 Creatinine 0.58 L Glucose 99 Calcium 9.4 Liver Function 12/24/17 Range/Units 10:01 Total Bilirubin 0.2 L (0.3-1.0) mg/dL AST 25 (13-39) Units/L ALT 25 (7-52) Units/L Alkaline Phosphatase 70 (34-104) Units/L Albumin 3.4 L (3.5-5.7) g/dL - ABG Interpretation ABG results: PT/INR, D-dimer PT 14.7 Seconds (9.4-12.1) H 12/24/17 03:23 - Impressions Impressions Lung Biopsy CT 12/24/17 00:00 IMPRESSION: CT-guided biopsy of a masslike region in the left lung performed. D/ / 12/24/2017 15:44:36 Eduard Pace MD / bcarter Interpreting Provider: Eduard Pace MD Chest X-Ray 12/24/17 13:45 IMPRESSION: No significant change from prior exam, as above. Left volume loss with underlying effusion and rib fractures. D/ / Micah Taylor MD / Micah Taylor MD Interpreting Provider: Micah Taylor MD Consult Discharge Plan - Plan Referrals: NONE,PCP [Non-Partnered Physician] -
[2017-12-25] MEDS: Piperacillin/Tazobactam 3.375 GM in 0.9 % Sodium Chloride Mini Bag 100 ML IVPB SCH ×4 (00:03→23:27)
[2017-12-25] MEDS: *HR* OxyCODONE/APAP 10/325 TABLET PO PRN ×4 (04:21→23:03)
[2017-12-25] MEDS: Ipratropium/Albuterol Neb 3 ML IH SCH ×4 (04:29→22:44)
[2017-12-25] MEDS: *HR* Heparin 5,000 UNIT/ML VIAL SQ SCH ×3 (05:02→16:41)
[2017-12-25 06:26] LABS: INR 1.5; Prothrombin Time 15.9 Seconds (9.4-12.1)
[2017-12-25] MEDS: VITAMIN D3 PO SCH (08:39)
[2017-12-25] MEDS: CALCIUM CARBONATE PO SCH (08:39)
[2017-12-25] MEDS: Nicotine 14 MG PATCH.TD24 TD SCH (08:44)
[2017-12-25] MEDS: Cyanocobalamin (B-12) 1,000 MCG TABLET PO SCH (08:44)
[2017-12-25] MEDS: Magnesium Oxide 400 MG TABLET PO SCH ×2 (08:44→19:44)
[2017-12-25] MEDS: Multivit/Ca/Min/Fe/FA 1 TAB TABLET PO SCH (08:44)
[2017-12-25] MEDS: Ascorbic Acid 500 MG TABLET PO SCH (08:44)
[2017-12-25] MEDS: Budesonide/Formoterol 160/4.5 MDI IH SCH ×2 (11:27→22:44)
--- NOTE | 2017-12-25 15:54 | Discharge Summary ---
<Daniel Webster Tri - Last Filed: 12/25/17 15:54> Orders not resulted at time of discharge: Pending orders 12/26/17 04:00 INR/PT [Prothrombin Time INR] [COAG] AM 0400 Date of Encounter: 12/25/17 Time of Encounter: 09:55 Hospital course: Mr. Donis is a 67 year old male - Time Spent with Patient Total time spent providing and/or coordinating discharge services: - Discharge Medications Prescriptions: Levofloxacin [Levaquin] 500 mg PO DAILY #10 tablet Home Medications: Docusate [Colace] 100 mg PO BID #60 capsule 07/13/15 [Rx] Albuterol Neb [AccuNeb] 0.63 mg IH Q4H 09/06/15 [History] Calcium Carbonate/Vitamin D3 [Calcium 500-Vit D3 400 Tablet] 1 each PO DAILY [History] FentaNYL PATCH [Duragesic] 100 mcg TD Q72H 09/06/15 [History] Ipratropium/Albuterol Neb [Duoneb] 3 ml IH Q6HR 09/06/15 [History] Magnesium Oxide [Magnesium] 400 mg PO BID 09/06/15 [History] Multivitamin [Multivitamins] 1 tab PO DAILY 09/06/15 [History] Oxycodone HCl/Acetaminophen [Percocet 10-325 mg Tablet] 1 tab PO Q6H PRN [History] Oxygen 2 l IH HS 09/06/15 [History] Ascorbic Acid [Vitamin C] 500 mg PO DAILY #30 tablet 11/08/15 [Rx] Cyanocobalamin (B-12) [Vitamin B12] 1,000 mcg PO DAILY #30 tablet 11/08/15 [Rx] Ferrous Sulfate [Iron] 325 mg PO DAILY #30 capsule.er 12/11/16 [Rx] Albuterol Sulfate [Albuterol Inhaler] 1 puff IH AD 12/20/17 [History] Fluticasone/Salmeterol [Advair 500-50 Diskus] 1 puff IH BID 12/20/17 [History] Acetaminophen [Tylenol] 650 mg PO Q6HR PRN tablet 12/26/17 [Rx] Levofloxacin [Levaquin] 500 mg PO DAILY #10 tablet 12/26/17 [Rx] Nicotine Patch [Nicoderm] 14 mg TD DAILY patch.td24 12/26/17 [Rx] Allergies/Adverse Reactions: 3 Allergy/AdvReac Type Severity Reaction Status Date / Time No Known Allergies Allergy Verified 12/12/17 14:43 Date of admission: 12/21/17 02:44 Primary care physician: Jennifer Jones CNP Consults: 12/21/17 02:49 Consult to Cardiothoracic Surgery [CONS] Routine Consulting Provider: Cardiothoracic Surgery Shannon Reason for Consult: Wound on chest wall Call Completed: Yes 12/21/17 07:16 Consult to Wound Care [CONS] Routine Reason for Consult: Chronic wound on back. Call Completed: No 12/21/17 09:08 Consult to Oncology Hematology [CONS] Stat Consulting Provider: Francisco Pacheco Reason for Consult: lung cancer Time Notified: 09:13 Call Completed: Yes 12/21/17 09:18 Consult to Physical Therapy [CONS] Routine Comment: Evaluate, develop and implement POC Reason for Consult: weakness 12/21/17 14:54 Consult to Interventional Radiology [CONS] Routine Consulting Provider: Radiology Interventional Cols Reason for Consult: core needle biopsy left lung mass Call Completed: Yes - Constitutional Vitals: Temp Pulse Resp BP Pulse Ox 98.6 F 92 16 130/70 96 12/25/17 15:28 12/25/17 15:28 12/25/17 15:28 12/25/17 15:28 12/25/17 15:28 General appearance: Present: A&O X 3, no acute distress, answers questions appropriately - Patient Status Disposition: Home Health Service Condition: Fair - Discharge Instructions Follow Up With: NONE,PCP [Non-Partnered Physician] - Additional Instructions: Follow up with Dr. Nieves as arranged or in 1 week. Take antibiotic daily starting tomorrow. Return for new or worsening symptoms. <Addison Mtz - Last Filed: 12/26/17 09:21> - NOTES TO OUTPATIENT PROVIDER Notes to Outpatient Provider: Biopsy results pending. To follow up with oncology to discuss treatment options. Date of Encounter: 12/26/17 Time of Encounter: 08:52 - Discharge Diagnosis (1) Abscess of skin Priority: Primary Status: Acute Comments: Draining area. Will discharge on PO abx to cover Pseudomonas. Qualifiers: Site of cutaneous abscess: trunk Site of cutaneous abscess of trunk: chest wall Qualified Code(s): L02.213 - Cutaneous abscess of chest wall (2) Pseudomonas infection Priority: Primary Status: Acute (3) ILANA (iron deficiency anemia) Priority: Secondary Status: Chronic Qualifiers: Iron deficiency anemia type: other iron deficiency Qualified Code(s): D50.8 - Other iron deficiency anemias (4) Lung cancer Priority: Primary Status: Suspected Comments: Biopsy pending. Qualifiers: Laterality: left Lung location: upper lobe of lung Qualified Code(s): C34.12 - Malignant neoplasm of upper lobe, left bronchus or lung (5) Weight loss, non-intentional Priority: Secondary Status: Chronic (6) Tobacco abuse Priority: Secondary Status: Chronic Hospital course: Mr. Donis is a 67 year old male with history of NSCLC in 2007 presented to ED due to increased pain and bleeding from wound on L chest wall. He was being followed as outpatient and he had recent culture with Pseudomonas. He was evaluated and admitted for further treatment. Mr Donis was admitted to med surg. He was started on IV abx and had local wound care to his draining wound on his L back. He was evaluated by cardiothoracic surgery with recommendations for further treatment and evaluation in [place] for possible surgery to lung and area. On 12/24 he underwent IR biopsy of the mass in his lung which he tolerated well. He continued IV abx with improvement in the drainage from his wound. He was seen by oncology and will have further outpatient follow up arranged. Patient wishes to go home and follow up in office to discuss options for treatment including possible surgery. Today he is afebrile. He is comfortable. He is tolerating diet and ready for discharge home with outpatient follow up. He will be discharged on PO Levaquin to cover Pseudomonas drainage from wound. Discharge discussed with: patient, nurse Time spent discussing smoking cessation with patient: 3 to 10 minutes - Time Spent with Patient Total time spent providing and/or coordinating discharge services: 42min Date of admission: 12/21/17 02:44 Primary care physician: Jennifer Jones CNP Consults: 12/21/17 02:49 Consult to Cardiothoracic Surgery [CONS] Routine Consulting Provider: Cardiothoracic Surgery Shannon Reason for Consult: Wound on chest wall Call Completed: Yes 12/21/17 07:16 Consult to Wound Care [CONS] Routine Reason for Consult: Chronic wound on back. Call Completed: No 12/21/17 09:08 Consult to Oncology Hematology [CONS] Stat Consulting Provider: Francisco Pacheco Reason for Consult: lung cancer Time Notified: 09:13 Call Completed: Yes 12/21/17 09:18 Consult to Physical Therapy [CONS] Routine Comment: Evaluate, develop and implement POC Reason for Consult: weakness 12/21/17 14:54 Consult to Interventional Radiology [CONS] Routine Consulting Provider: Radiology Interventional Cols Reason for Consult: core needle biopsy left lung mass Call Completed: Yes Discharging clinician: Addison Mtz Anticipated date of discharge: 12/26/17 - Constitutional Vitals: Temp Pulse Resp BP Pulse Ox 97.9 F 83 15 105/67 96 12/26/17 06:56 12/26/17 06:56 12/26/17 06:56 12/26/17 06:56 12/26/17 06:56 - Head Head exam: Present: normocephalic - Eye Eye exam: Present: EOMI, conjuntiva pink - ENT ENT exam: Present: mucous membranes dry - Respiratory Respiratory exam: Present: decreased breath sounds. Absent: rales, rhonchi, wheezes Additional comments: Diminished breath sounds on L. - Cardiovascular Cardiovascular exam: Present: RRR. Absent: tachycardia - GI/Abdominal GI/Abdominal exam: Present: soft. Absent: tenderness - Extremities Exam Extremities exam: Present: warm. Absent: tenderness - Neurological Exam Neurological exam: Present: alert, oriented X3, no focal deficits - Skin Skin exam: Present: warm Additional comments: Dressing intact over draining wound on L posterior chest. - Patient Status Functional capacity at discharge: independent ambulation Overall status at discharge: patient is progressing back to baseline - Diet and Activity Activity: increase activity as tolerated Diet: advance to your usual diet
--- NOTE | 2017-12-25 16:57 | Oncology Inp Progress Note ---
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 He has completed concurrent chemoradiation with 75 Gy of radiation with Navelbine, cetuximab at the [facility] and he has had no prior evidence of radiographic recurrence. PET scan 12/05 as detailed above concerning for worsening disease burden and superimposed infection. He has a worsening left infrascapular abscess with presumed tumor involvement and culture proven pansensitive pseudomonas infection. Prelim blood cx with no growth. Zosyn IV ATB. Cardiothoracic consult reviewed, appreciate recommendations- if surgical route pursued he will need referral to [facility] for extensive surgery He underwent CT guided core needle biopsy of his left lung yesterday, tolerated well. Pathology report pending. His symptoms are improving, discussed case with attending hospitalist, he is planned for discharge home likely tomorrow with oral ATB coverage. Patient also wishes for discharge home prior to surgical referral and to discuss further with Dr. Nieves at upcoming appointment following biopsy results. Will arrange for close follow up with Dr. Nieves who was also updated on patients plan of care today. Oncology: Subj Interval history: Mr. Donis appears to be feeling weel, he reports his pain is controlled although still present. He denies SOB above baseline or chest pain. - Constitutional Vitals: Vital Signs Temp Pulse Resp BP Pulse Ox 12/25/17 16:09 16 96 12/25/17 15:28 98.6 F 92 16 130/70 96 12/25/17 11:27 16 96 12/25/17 11:08 97.7 F 80 15 111/66 96 12/25/17 07:33 98.0 F 50 16 103/55 99 12/25/17 04:29 16 100 12/25/17 02:53 97.9 F 72 14 117/72 99 12/25/17 00:37 97.9 F 74 16 108/67 99 12/24/17 21:30 16 99 12/24/17 19:07 97.9 F 83 18 127/71 97 12/24/17 17:04 98.2 F 82 17 108/69 97 Intake and Output 03/04/0812/25/17 12/25/17 07:59 15:59 23:59 Intake Total 300 / 300 460 / 460 Output Total 0 / 0 Balance 300 / 300 460 / 460 Intake: IV Fluids 100 / 100 100 / 100 Zosyn 3.375 GM In 0.9 % Sodium 100 / 100 100 / 100 Chloride (Mini-Bag +) 100 ML @ 25 mls/hr IVPB Q8HR CIRA Rx#: [id number] Oral 200 / 200 360 / 360 Output: Urine 0 / 0 Other: Meal Lunch Percent of Meal Consumed 55% # Voids 1 General appearance: cooperative, no acute distress, no febrile - Head Head exam: Present: atraumatic - ENT ENT exam: Present: mucous membranes moist - Respiratory Respiratory exam: Present: decreased breath sounds, CTAB. Absent: respiratory distress - Cardiovascular Cardiovascular exam: Present: RRR, +S1, +S2 - GI/Abdominal GI/Abdominal exam: Present: normal bowel sounds, soft. Absent: tenderness - Extremities Exam Extremities exam: Present: normal inspection. Absent: calf tenderness - Neurological Exam Neurological exam: Present: alert, oriented X3, no focal deficits, strengths equal and symetr throughout - Psychiatric Psychiatric exam: Present: normal affect, normal mood - Skin Skin exam: Present: normal color, warm Additional comments: left infrascapular wound/abscess with surrounding induration, dressing just changed and is D&I (it is very painful for patient to remove dressing), nursing staff report noticeable improvement in appearance of wound with continued decrease in drainage although drainage continues to have a thick, yellow/green appearance. Oncology: Obj Data - Labs CBC & Chem 7: 12/24/17 10:01 12/24/17 10:01 Labs: Laboratory Results - last 24 hr 12/25/17 06:06 PT 15.9 H INR 1.5 - Impressions Impressions Lung Biopsy CT 12/24/17 00:00 IMPRESSION: CT-guided biopsy of a masslike region in the left lung performed. D/ / 12/24/2017 15:44:36 Eduard Pace MD / [email or web address] Interpreting Provider: Eduard Pace MD - ABG Interpretation ABG results: PT/INR, D-dimer PT 15.9 Seconds (9.4-12.1) H 12/25/17 06:06 Consult Discharge Plan - Plan Referrals: NONE,PCP [Non-Partnered Physician] -
--- NOTE | 2017-12-25 17:56 | Internal Med Progress Note ---
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 He has completed concurrent chemoradiation with 75 Gy of radiation with Navelbine, cetuximab at the [facility] and he has had no prior evidence of radiographic recurrence. PET scan 12/05 as detailed above concerning for worsening disease burden and superimposed infection. He has a worsening left infrascapular abscess with presumed tumor involvement and culture proven pansensitive pseudomonas infection. Prelim blood cx with no growth. Continue Zosyn IV ATB. Cardiothoracic consulted- if surgical route pursued he will need referral to [facility] for extensive surgery.----Patient does not wished to be transferred. He underwent CT guided core needle biopsy of his left lung yesterday, tolerated well. Pathology report pending. Planning for possible discharge home tomorrow with oral ATB coverage. Patient wishes for discharge home prior to surgical referral and to discuss further with Dr. Nieves at upcoming appointment following biopsy results. (2) Abscess of skin Current Visit: Yes Status: Acute Assessment and plan: Left infrascapular chest wall abscess/wound. Cardiothoracic surgery and oncology consulted; appreciate input. Wound culture grew pseudomonas. Continue IV zosyn. Blood cultures x 2 preliminary no growth to date. Continue percocet and fentanyl for pain. Patient improving, likely discharge home tomorrow as per above plan. Qualifiers: Site of cutaneous abscess: trunk Site of cutaneous abscess of trunk: chest wall Qualified Code(s): L02.213 - Cutaneous abscess of chest wall (3) Anemia Current Visit: Yes Status: Chronic Assessment and plan: Continue iron supplementation. Hgb improved from 9.5 to 11.3. Qualifiers: Anemia type: iron deficiency Qualified Code(s): D50.0 - Iron deficiency anemia secondary to blood loss (chronic) (4) Tobacco abuse Current Visit: Yes Status: Chronic Assessment and plan: Continue nicotine transdermal. (5) DVT prophylaxis Current Visit: Yes Status: Acute Assessment and plan: Continue heparin SC. - Subjective Interval history: Patient seen and examined at bedside. Patient denies acute distress, stating he is ready to go home. Does note that wound on back is tender to palpation/ pressure. - Constitutional Vitals: Temp Pulse Resp BP Pulse Ox 98.6 F 92 16 130/70 96 12/25/17 15:28 12/25/17 15:28 12/25/17 16:09 12/25/17 15:28 12/25/17 16:09 General appearance: Present: cooperative, A&O X 3, no acute distress, answers questions appropriately - Head Head exam: Present: atraumatic, normocephalic - Eye Eye exam: Present: EOMI, conjuntiva pink, sclera anicteric - Neck Neck exam general surgery: Present: full ROM, supple, trachea midline - Respiratory Respiratory exam: Present: decreased breath sounds, CTAB. Absent: accessory muscle use, rales, rhonchi, wheezes - Cardiovascular Cardiovascular exam: Present: RRR, +S1, +S2. Absent: diastolic murmur, gallop, rubs, systolic murmur - GI/Abdominal GI/Abdominal exam: Present: normal bowel sounds, soft, no peritoneal signs. Absent: distended, tenderness - Extremities Exam Extremities exam: Present: warm. Absent: calf tenderness, cyanotic, pedal edema - Neurological Exam Neurological exam: Present: alert, oriented X3, no focal deficits. Absent: facial droop, speech deficit - Skin Skin exam: Present: dry, intact Additional comments: wound on left sided upper back covered with gauze and tape, dressing clean/dry/ intact. Internal Medicine: Result - Labs CBC & Chem 7: 12/24/17 10:01 12/24/17 10:01 - ABG Interpretation ABG results: PT/INR, D-dimer PT 15.9 Seconds (9.4-12.1) H 12/25/17 06:06 - Impressions Impressions Lung Biopsy CT 12/24/17 00:00 IMPRESSION: CT-guided biopsy of a masslike region in the left lung performed. D/ / 12/24/2017 15:44:36 Eduard Pace MD / [facility]arter Interpreting Provider: Eduard Pace MD Consult Discharge Plan - Plan Referrals: NONE,PCP [Non-Partnered Physician] -
--- NOTE | 2017-12-25 20:31 | Event Note ---
Date of Encounter: 12/25/17 Time of Encounter: 16:00 EMR will not allow me to sign note at this time. I examined this patient and my medical decision-making was reviewed with the Resident Physician on 12/25/17. I agree with the documented findings, disposition and treatment plan as described except to the extent set forth below. Mr Donis is currently admitted for posterior back wound and lung mass presumed to be recurrent lung cancer. He remains moderate to high risk due to potential for worsening clinical status. Mr Donis feels OK. no fever. Less drainage from wound. Breathing OK. Biopsy pending. Exam alert comfortable Mucus membranes dry Heart reg No wheeze I/P 1. skin wound 2. Pseudomonas infection 3. Lung mass 4. Hx lung cancer Further diagnoses and plan as per progress note of today
[2017-12-26] MEDS: Ipratropium/Albuterol Neb 3 ML IH SCH ×2 (04:01→11:02)
[2017-12-26] MEDS: *HR* OxyCODONE/APAP 10/325 TABLET PO PRN ×2 (05:43→12:00)
[2017-12-26] MEDS: *HR* Heparin 5,000 UNIT/ML VIAL SQ SCH (05:43)
[2017-12-26 06:19] LABS: INR 1.4; Prothrombin Time 15.6 Seconds (9.4-12.1)
[2017-12-26] MEDS: Piperacillin/Tazobactam 3.375 GM in 0.9 % Sodium Chloride Mini Bag 100 ML IVPB SCH (08:23)
[2017-12-26] MEDS: Nicotine 14 MG PATCH.TD24 TD SCH (08:25)
[2017-12-26] MEDS: Cyanocobalamin (B-12) 1,000 MCG TABLET PO SCH (08:26)
[2017-12-26] MEDS: Multivit/Ca/Min/Fe/FA 1 TAB TABLET PO SCH (08:26)
[2017-12-26] MEDS: CALCIUM CARBONATE PO SCH (08:26)
[2017-12-26] MEDS: Ascorbic Acid 500 MG TABLET PO SCH (08:26)
[2017-12-26] MEDS: Magnesium Oxide 400 MG TABLET PO SCH (08:26)
[2017-12-26] MEDS: VITAMIN D3 PO SCH (08:26)
--- NOTE | 2017-12-26 09:24 | Physician Discharge Referral ---
Home Health/Hosp Referral Info Transfer to: Home Health Provider in Charge Post Discharge: PCP - Diagnosis (1) Abscess of skin Priority: Primary Status: Acute (2) Pseudomonas infection Priority: Primary Status: Acute (3) ILANA (iron deficiency anemia) Priority: Secondary Status: Chronic (4) Lung cancer Priority: Secondary Status: Suspected (5) Weight loss, non-intentional Priority: Secondary Status: Chronic (6) Tobacco abuse Priority: Secondary Status: Chronic - Respiratory Orders Oxygen / L per min (2 liters at night and as needed.) Smoking Cessation: Smoking cessation has been advised. For more information, call the [place] Tobacco Quit Line at 7-735-ISSJ-NOW. - Dressing/Wound Care Site: L back Type of Dressing/Treatments w/Frequency: Will cleanse the wound with Microklenz dermal wound cleanser that is no sting and no rinse. It has a surfactant in it that will help release dried drainage or adherent dressings. Will use calcium alginate with silver (Maxorb AG) on the wound to absorb drainage and pad the area. It will absorb 20 times its weight in fluid turning to a gel that will not stick and cause bleeding or pain. It will also release silver into the wound helping to kill bacteria. If the patient is to begin any radiation therapy, we will need to switch to plain Maxorb without the silver - Diet/Nutrition Diet/Nutrition Orders: Regular - Activity Activity Orders: Up ad jaimee - Services Needed Following services are medically necessary services: Nursing - Transfer Medications Prescriptions: Levofloxacin [Levaquin] 500 mg PO DAILY #10 tablet Home Medications: Docusate [Colace] 100 mg PO BID #60 capsule 07/13/15 [Rx] Albuterol Neb [AccuNeb] 0.63 mg IH Q4H 09/06/15 [History] Calcium Carbonate/Vitamin D3 [Calcium 500-Vit D3 400 Tablet] 1 each PO DAILY [History] FentaNYL PATCH [Duragesic] 100 mcg TD Q72H 09/06/15 [History] Ipratropium/Albuterol Neb [Duoneb] 3 ml IH Q6HR 09/06/15 [History] Magnesium Oxide [Magnesium] 400 mg PO BID 09/06/15 [History] Multivitamin [Multivitamins] 1 tab PO DAILY 09/06/15 [History] Oxycodone HCl/Acetaminophen [Percocet 10-325 mg Tablet] 1 tab PO Q6H PRN [History] Oxygen 2 l IH HS 09/06/15 [History] Ascorbic Acid [Vitamin C] 500 mg PO DAILY #30 tablet 11/08/15 [Rx] Cyanocobalamin (B-12) [Vitamin B12] 1,000 mcg PO DAILY #30 tablet 11/08/15 [Rx] Ferrous Sulfate [Iron] 325 mg PO DAILY #30 capsule.er 12/11/16 [Rx] Albuterol Sulfate [Albuterol Inhaler] 1 puff IH AD 12/20/17 [History] Fluticasone/Salmeterol [Advair 500-50 Diskus] 1 puff IH BID 12/20/17 [History] Acetaminophen [Tylenol] 650 mg PO Q6HR PRN tablet 12/26/17 [Rx] Levofloxacin [Levaquin] 500 mg PO DAILY #10 tablet 12/26/17 [Rx] Nicotine Patch [Nicoderm] 14 mg TD DAILY patch.td24 12/26/17 [Rx] Allergies/Adverse Reactions: 3 Allergy/AdvReac Type Severity Reaction Status Date / Time No Known Allergies Allergy Verified 12/12/17 14:43 Certification: Further, I certify that my clinical findings support that this patient is homebound (i.e. absences from home require considerable and taxing effort and are for medical reasons or hoahaoism services or infrequently or short duration when for other reasons) because: Homebound Reason: Leaving home requires considerable and taxing effort due to condition, Severity of cardiac or pulmonary status limits activity tolerance Attestation: My signature below is to certify that this patient is under my care and that I, or nurse practitioner, or a physician's recreational assistant working with me, has a face-to -face encounter with this patient.
[2017-12-26 10:58] VITALS: BP 114/71
[2017-12-26] MEDS: Budesonide/Formoterol 160/4.5 MDI IH SCH (11:02)
[2017-12-26] MEDS ORDERED: levoFLOXacin 500 MG TABLET PO ONE (11:51)
== END 2017-12-26 13:20 | disposition home health service (06) | DRG 603 ==
LOC: 3NENU 16:36 → EMEROO 16:36 → 3NENU 23:18 → SUATTDRO 12-21 02:44
PROVIDERS: ADMIT Family Medicine; ATTEND Internal Medicine

== ENCOUNTER 2018-09-01 19:03 | Inpatient (IN) ==
--- NOTE | 2018-09-01 20:35 | Orthopedic Consult Note ---
Date of Encounter: 09/01/18 Time of Encounter: 20:29 History of Present Illness Chief complaint: Left hip pain HPI: Mr. Donis is a 68 year old male who sustained an injury to his left hip up proximally 48 hours ago. The patient apparently tripped over an electrical cord at his home. He landed on the left hip. He had persistent pain and difficulty ambulating. He ultimately presented to the emergency room at [facility] today. X-rays taken revealed evidence of a left hip fracture. He was transferred to [facility] for definitive management. The patient does have a history of lung cancer that was treated with radiation. 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 Been treated with various antibiotics. I reviewed the patient's medical record from [facility] including lab studies and x-rays. Orthopedic examination reveals a mildly cachectic-appearing 68-year-old gentleman in mild distress secondary left buttock and groin pain. Hip exam reveals minor pain with range of motion. Neurovascular exam is grossly intact. I reviewed x-rays of the left hip. These reveal an acute, essentially nondisplaced slightly valgus subcapital fracture of the left femoral neck. Laboratory data from [facility] is relatively unremarkable. Impression: Nondisplaced left femoral neck fracture Recommendation: I discussed with the patient that I would recommend we proceed with surgical stabilization of this fracture in the form of percutaneous screw fixation. I would not recommend more aggressive surgery in light of the underlying concerns for an infection from his lung disease. I discussed that the percutaneous screw fixation is a relatively minimal surgery and is designed to stabilize the fracture and allow the fracture to heal. We discussed the potential risks and complications including but not limited to bleeding, infection, blood clots, nerve injury, malunion, nonunion as well as leg length or rotational deformities. The patient understands and had a questions answered. He has signed informed consent to proceed with the surgery. Have scheduled him for tomorrow as an add-on case when operating time is available. Thank you very much for allowing me to see and care for Mr. Donis. Sincerely, Raghav Mayfield,DO Past Med Surg Social Fam HX - Past Medical History Medical history: cancer, other Additional medical history: lung cancer Psychiatric history: no psych history - Past Surgical History Surgical History: cholecystectomy - Social History Smoking Status: Current every day smoker Smokeless Tobacco Status: No Alcohol use: none Drug use: none - Family History Brother Living Status: Hx Family Cancer: Yes (Lung) Medications and Allergies Docusate [Colace] 100 mg PO BID #60 capsule 07/13/15 [Rx] FentaNYL PATCH [Duragesic] 100 mcg TD Q72H 09/06/15 [History] Ipratropium/Albuterol Neb [Duoneb] 3 ml IH Q6HR 09/06/15 [History] Magnesium Oxide [Magnesium] 400 mg PO BID 09/06/15 [History] Multivitamin [Multivitamins] 1 tab PO DAILY 09/06/15 [History] Oxycodone HCl/Acetaminophen [Percocet 10-325 mg Tablet] 1 tab PO Q6H PRN 09/06/15 [History] Oxygen 2 l IH HS 09/06/15 [History] Cyanocobalamin (B-12) [Vitamin B12] 1,000 mcg PO DAILY #30 tablet 11/08/15 [Rx] Albuterol Sulfate [Albuterol Inhaler] 1 puff IH AD 12/20/17 [History] Fluticasone/Salmeterol [Advair 500-50 Diskus] 1 puff IH BID 12/20/17 [History] Acetaminophen [Tylenol] 650 mg PO Q6HR PRN tablet 12/26/17 [Rx] Albuterol Sulfate [Proair Hfa] 2 puff IH Q4-6H PRN #1 inh 06/17/18 [Rx] Allergy/AdvReac Type Severity Reaction Status Date / Time No Known Allergies Allergy Verified 08/23/18 09:07 All Systems Reviewed: The remainder of the systems were reviewed and are negative Results - Labs Labs: All other labs normal.
[2018-09-01] MEDS ORDERED: Acetaminophen 325 MG TABLET PO PRN (23:17)
[2018-09-01] MEDS ORDERED: *HR* OxyCODONE/APAP 10/325 TABLET PO PRN (23:17)
[2018-09-01] MEDS ORDERED: Naloxone 0.4 MG/ML INJ IVP PRN (23:25)
[2018-09-01] MEDS ORDERED: traMADol 50 MG TABLET PO PRN (23:25)
[2018-09-01] MEDS ORDERED: *HR* FentaNYL PATCH 100 MCG PATCH TD SCH (23:30)
--- NOTE | 2018-09-02 00:06 | Internal Med History&Physical ---
Date of Encounter: 09/01/18 Time of Encounter: 22:45 Internal Medicine - H&P: HPI Chief complaint: Left hip pain Admitted From: Intrahospital Transfer Plans for Post Hospital Care: Home History of present illness: Mr. Donis is a 68 year old male w/PMH of lung cancer and COPD presents from [facility] ED w/CC of left hip pain d/t a fall sustained on or Sunday. Patient states he tripped over an electric cord laying in front of the doorway to his house and landed on his left hip. Denies hitting his head or any LOC. States he has pain in his left back related to a large abscess in the left infrascapular area extending all the way to the chest wall about 12 cm which drains yellow-green pus and he is currently seen at the [facility] for dressing changes. States he also received IVPB antibiotics for this. Patient denies history of falls or using any kind of walking assistive devices. Patient denies any recent illness, fever, chills, nausea, vomiting, headache, changes in vision, unusual bleeding, chest pain, shortness of breath, cough, chest congestion, abdominal pain, diarrhea, constipation, dizziness, lightheadedness, numbness, tingling, pre-syncope, or syncope. Past Med Surg Social Fam HX - Past Medical History Source: patient, old records reviewed Medical history: cancer (Lung dxd in 2007), COPD, other Additional medical history: lung cancer Psychiatric history: no psych history - Past Surgical History Surgical History: cholecystectomy - Social History Smoking Status: Current every day smoker Packs per day: 1/2 PPD Smokeless Tobacco Status: No Alcohol use: none Drug use: none Current living situation: Home Activity Level: Independent ambulation Recent Out of Country Travel Within the Last 8 Weeks: No Exposure or Possible Exposure to Illness During Travel: No - Family History Brother Race: Family Member Ethnicity: Non- Living Status: Age at : 72 Cause of : Lung cancer Hx Family Cancer: Yes (Lung) Father Race: Family Member Ethnicity: Non- Living Status: Age at : 72 Cause of : Blood clot Hx Family Cardiac Disorders: Yes (Blood clot) Mother Race: Family Member Ethnicity: Non- Living Status: Still Living Hx Family Cardiac Disorders: Yes (HTN) Sister Race: Family Member Ethnicity: Non- Living Status: Still Living Hx Family Medical Disorders: No Internal Medicine - H&P: Meds Docusate [Colace] 100 mg PO BID #60 capsule 07/13/15 [Rx] FentaNYL PATCH [Duragesic] 100 mcg TD Q72H 09/06/15 [History] Ipratropium/Albuterol Neb [Duoneb] 3 ml IH Q6HR 09/06/15 [History] Magnesium Oxide [Magnesium] 400 mg PO BID 09/06/15 [History] Multivitamin [Multivitamins] 1 tab PO DAILY 09/06/15 [History] Oxycodone HCl/Acetaminophen [Percocet 10-325 mg Tablet] 1 tab PO Q6H PRN 09/06/15 [History] Oxygen 2 l IH HS 09/06/15 [History] Cyanocobalamin (B-12) [Vitamin B12] 1,000 mcg PO DAILY #30 tablet 11/08/15 [Rx] Albuterol Sulfate [Albuterol Inhaler] 1 puff IH AD 12/20/17 [History] Fluticasone/Salmeterol [Advair 500-50 Diskus] 1 puff IH BID 12/20/17 [History] Acetaminophen [Tylenol] 650 mg PO Q6HR PRN tablet 12/26/17 [Rx] Albuterol Sulfate [Proair Hfa] 2 puff IH Q4-6H PRN #1 inh 06/17/18 [Rx] Allergy/AdvReac Type Severity Reaction Status Date / Time No Known Allergies Allergy Verified 08/23/18 09:07 All Systems PM: A 10-system review of systems was performed and is negative for pertinent findings except as documented above in the HPI. - Constitutional Constitutional: no chills, no fever(s), no night sweats - EENT Eyes: no change in vision, no discharge, no pain, no photophobia Ears: no ear discharge, no ear pain, no tinnitus Nose, mouth and throat: no dysphagia, no nasal discharge, no neck pain, no sore throat - Breasts Breasts: as per HPI - Cardiovascular Cardiovascular ROS IM: no chest pain, no diaphoresis, no dyspnea, no lightheadedness, no palpitations, no syncope - Respiratory Respiratory: no cough, no dyspnea, no wheezing, no excessive phlegm production - Gastrointestinal Gastrointestinal: no abdominal pain, no diarrhea, no hematemesis, no hematochezia, no melena, no nausea, no vomiting - Genitourinary Genitourinary ROS male: as per HPI - Musculoskeletal Musculoskeletal ROS IM: as per HPI, back pain (D/t current lung infection), other (Left hip pain) - Integumentary Integumentary IM: no rash, no unusual bruising - Neurological Neurological ROS: no confusion, no convulsions, no focal weakness, no numbness, no tingling, no tremor(s) - Psychiatric Psychiatric: as per HPI - Endocrine Endocrine IM: as per HPI - Hematologic/Lymphatic Hematologic/Lymphatic: no easy bruising - Allergic/Immunologic Allergic/Immunologic: as per HPI - Constitutional Vitals: Temp Pulse Resp BP Pulse Ox 97.9 F 97 16 117/74 97 09/01/18 23:57 09/01/18 23:57 09/01/18 23:57 09/01/18 23:57 09/01/18 23:57 General appearance: Present: cooperative, mild distress (Left hip pain and pain in back), A&O X 3, pleasant, underweight (Reports he used to weigh 160 lbs and now weighs 125 lbs), answers questions appropriately Exam: Patient examined at bedside. Patient resting comfortably in bed and reports only mild pain in left hip. Patient denies any nausea, vomiting, or any other complaints at this time. VS: 90 7.9F temperature, HR 97, RR 16, BP 117/74, SPO2 97% on room air. - Head Head exam: Present: atraumatic, normocephalic - Eye Eye exam: Present: PERRL, conjuntiva pink, sclera anicteric Pupils: Present: PERRL - ENT ENT exam: Present: normal exam - Neck Neck exam general surgery: Present: normal inspection, supple, trachea midline. Absent: lymphadenopathy - Respiratory Respiratory exam: Present: CTAB. Absent: accessory muscle use, rales, rhonchi, wheezes - Cardiovascular Cardiovascular exam: Present: RRR, +S1, +S2. Absent: diastolic murmur, gallop, rubs, systolic murmur - GI/Abdominal GI/Abdominal exam: Present: normal bowel sounds, soft, no peritoneal signs. Absent: distended, tenderness - Rectal Rectal exam: Present: deferred - Additional comments: exam deferred. - Extremities Exam Extremities exam: Present: warm, radial pulses palpable and symmetrical. Absent: calf tenderness, cyanotic, pedal edema - Back Exam Back exam: Present: normal inspection - Neurological Exam Neurological exam: Present: alert, CN II-XII intact, oriented X3, no focal deficits. Absent: pronater drift, facial droop, speech deficit - Psychiatric Psychiatric exam: Present: normal affect, normal mood - Skin Skin exam: Present: dry, erythema (Left side of back), intact Internal Med - H&P Results - EKG Data EKG shows normal: sinus rhythm - EKG Data Prior EKG available for review: no EKG comments: 09/02/18 02:56 EKG dated 09/01/18 shows sinus rhythm with borderline left axis deviation. - Diagnostic Studies Other Images Additional comments: EXAMINATION: 2 XRAY VIEWS OF THE LEFT HIP 09/01/2018 4:04 pm COMPARISON: None. HISTORY: ORDERING SYSTEM PROVIDED HISTORY: trauma FINDINGS: There is a subcapital fracture of the left femoral neck with slight angulation. The femoral head is not dislocated. No pelvic fracture is demonstrated XR/XR hip complete LT IMPRESSION: Left femoral neck fracture D/ / Bill Sheffield MD / Bill Sheffield MD Interpreting Provider: Bill Sheffield MD - Assessment and plan (1) Hip fracture Current Visit: Yes Status: Acute Assessment and plan: Acute fx of the left hip d/t a fall sustained on or Sunday. Patient states he tripped over an electric cord laying in front of the doorway to his house and landed on his left hip. Denies hitting his head or any LOC. Denies hx of falls. Pt. reports mild hip pain as well as pain in back d/t abscess. Pt. uses 72-hr fentanyl patch which will be held today d/t surgery tomorrow. Will manage pain w/PO pain medications. Dr. Mayfield consulted on this pt. w/plan for surgical intervention in the a.m. NPO except for medications. Bilateral foot pumps and FELIX hose. Pt. 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 Inpatient. Qualifiers: Encounter type: initial encounter Fracture type: closed Laterality: left Qualified Code(s): S72.002A - Fracture of unspecified part of neck of left femur, initial encounter for closed fracture (2) Abscess of skin Current Visit: Yes Status: Acute Assessment and plan: Acute on chronic large abscess of the left infrascapular area which extends all the way to the chest wall length about about 12 cm. Draining yellow-green pus. Patient reports he is seen at [facility] for dressing changes and IVPB abx currently. States that his dressing is due to be changed this week. Oncology consult ordered and discussed w/Dr. Erickson and I appreciate the consult and recommendations as always. WBC 10.3 on admission today. Pt. is afebrile and currently does not meet sepsis criteria but will be monitored closely for signs of increasing infection. Qualifiers: Site of cutaneous abscess: trunk Site of cutaneous abscess of trunk: back Qualified Code(s): L02.212 - Cutaneous abscess of back [any part, except buttock] (3) Tobacco abuse counseling Current Visit: Yes Status: Acute Assessment and plan: Pt. counseled >10 minutes regarding the dangers of continued smoking and the benefits of cessation. Pt. states he is willing to try quitting following this admission. (4) COPD (chronic obstructive pulmonary disease) Current Visit: Yes Status: Chronic Assessment and plan: Hx of chronic COPD. Stable. Supplemental O2 w/titration and SpO2 monitoring. Continue pts. inhalers. Qualifiers: COPD type: unspecified COPD Qualified Code(s): J44.9 - Chronic obstructive pulmonary disease, unspecified (5) Lung cancer Current Visit: Yes Status: Chronic Assessment and plan: Hx of chronic lung cancer of the LLL. Pt. reports he sees Dr. Nieves at the [facility]. States he is not currently taking txs but is seen for current abscess and for IVPB abx. Oncology consult ordered and discussed w/Dr. Erickson and I appreciate the consult and recommendations as always. Qualifiers: Laterality: left Lung location: lower lobe of lung Qualified Code(s): C34.32 - Malignant neoplasm of lower lobe, left bronchus or lung (6) Tobacco abuse Current Visit: Yes Status: Chronic Assessment and plan: Hx of chronic tobacco abuse. Pt. reports smoking 1/2 PPD. Pt. counseled >10 minutes regarding the dangers of smoking and the benefits of quitting. Pt. reports he is willing to try and quit following this admission. (7) DVT prophylaxis Current Visit: Yes Status: Acute Assessment and plan: Bilateral foot pumps and FELIX hose for DVT prophylaxis d/t surgery in a.m. - Time Spent With Patient Total time spent is greater than 50% in coordination of care (as documented) at patient's floor/unit and/or counseling patient: Greater than 35 minutes
[2018-09-02] MEDS: Ipratropium/Albuterol Neb 3 ML IH SCH ×5 (00:27→22:09)
[2018-09-02] MEDS: 0.9 % Sodium Chloride 1,000 ML IVC SCH ×2 (02:40→16:37)
[2018-09-02 06:35] LABS: Basophils % 0.5 %; Eosinophils # 0.1 K/mcL (0.0-0.6); Eosinophils % 1.7 %; Hematocrit 36.5 % (37.5-50.1); Hemoglobin 11.4 g/dL (12.9-16.9); Immature Granulocytes % 0.3 % (0-4); Lymphocytes # 1.2 K/mcL (0.6-4.6); Mean Corpuscular HGB Conc 31.2 g/dL (31.6-35.5); Mean Corpuscular Hemoglobin 24.4 pg (28.0-33.3); Mean Platelet Volume 9.6 fL (9.4-12.4); Monocytes # 0.7 K/mcL (0.0-1.3); Monocytes % 8.8 %; Neutrophils # 5.7 K/mcL (1.6-8.9); Platelet Count 273 K/mcL (140-400); Red Blood Count 4.68 M/mcL (4.19-5.50); Segmented Neutrophils % 73.7 %
[2018-09-02] MEDS: OXYCODONE Oral CONC 10 MG/0.5 ML ORAL.SYG SL PRN ×2 (06:46→12:39)
[2018-09-02 06:54] LABS: Alanine Aminotransferase 11 Units/L (7-52); Albumin 3.2 g/dL (3.5-5.7); Albumin/Globulin Ratio 0.9 (1.1-2.2); Alkaline Phosphatase 57 Units/L (34-104); Aspartate Amino Transferase 10 Units/L (13-39); BUN/Creatinine Ratio 22 (6-26); Bilirubin,Total 0.3 mg/dL (0.3-1.0); Blood Urea Nitrogen 10 mg/dL (8-23); Calcium 8.6 mg/dL (8.6-10.3); Carbon Dioxide 27 mEq/L (23-29); Chloride 106 mEq/L (98-107); Chol/HDL Ratio 2.4 (0-4.9); Cholesterol 89 mg/dL (< 200); Globulin 3.5 g/dL (2.4-3.5); Glucose 122 mg/dL (70-105); HDL Cholesterol 37 mg/dL (40-59); LDL Cholesterol,Calculated 42 mg/dL (0-99); Magnesium 1.9 mg/dL (1.6-2.6); Osmolality,Calculated 284 (280-300); Potassium 3.9 mEq/L (3.5-5.1); Sodium 137 mEq/L (136-145); Total Protein 6.7 g/dL (6.4-8.9); Triglycerides 51 mg/dL (< 150); eGFR For Non-African Americans > 60 (> 60)
[2018-09-02] MEDS: Magnesium Oxide 400 MG TABLET PO SCH ×2 (08:36→21:46)
[2018-09-02] MEDS ORDERED: Multivit/Ca/Min/Fe/FA 1 TAB TABLET PO SCH (09:00)
[2018-09-02] MEDS ORDERED: Cyanocobalamin (B-12) 1,000 MCG TABLET PO SCH (09:00)
--- NOTE | 2018-09-02 09:38 | Oncology Inp Consult Note ---
<Rashaun Trevino - Last Filed: 09/02/18 16:57> Date of Encounter: 09/02/18 Time of Encounter: 09:38 Assessment and Plan (1) Abscess of skin Status: Chronic Assessment and plan: Chronic draining abscess of the left infrascapular region -Previously evaluated by CT surgery and patient not considered to be a surgical candidate. -Follows with Dr Nieves with [facility] and Dr. Lieberman with wound care, last saw Dr. Nieves on 08/23 -Wound remains positive by culture for Pseudomonas -Currently on antibiotic treatment break, was supposed to return [facility] tomorrow 09/03 for PICC and abx restart with cefepime 2 g for 28 days. -Does not appear to be acutely ill from infection Plan: -Will consult ID for recommendations regarding antibiotic treatment, anticipate that patient will require PICC placement prior to discharge. 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 Size 5 x 5.4 cm, squamous cell, poorly differentiated carcinoma. -Completed concurrent chemoradiation with Navelbine, cetuximab. Not currently on treatment -Follows with Dr. Nieves, last seen 08/23/2018 -CT Chest 08/19/2018, stable disease burden, no new lymphadenopathy or tumor extension. Plan: Continue outpatient follow up as planned with Dr. Nieves. Qualifiers: Laterality: left Lung location: lower lobe of lung Qualified Code(s): C34.32 - Malignant neoplasm of lower lobe, left bronchus or lung (4) Hip fracture Status: Acute Assessment and plan: 1. Acute Left subcapital hip fracture Plan: Orthopedic surgery consulted and planning for surgery later today. Qualifiers: Encounter type: initial encounter Fracture type: closed Laterality: left Qualified Code(s): S72.002A - Fracture of unspecified part of neck of left femur, initial encounter for closed fracture - Data of Consult Patient: known to practice within the last 3 years Consult date: 09/01/18 Requesting Physician: Reyna Castillo MD Primary Care Provider: Lala Gonzales CNP - Consult Narrative Reason for consult: lung ca, chronic draining abscess of left back History of present illness: Mr. Donis is a 68 year old male with a history of non-small cell lung cancer and COPD known to the [facility] and following with Dr. Nieves. Patient presented yesterday evening to the [place] [facility] ED for evaluation of left hip pain following a fall. Patient reports tripping near his entryway over a cord. He fell onto his left side and felt pain in his left hip following. He denies hitting his head or losing consciousness. He felt fine prior to falling. Denies dizziness or shortness of breath. Denies any recent illness or change in health status or symptoms. Denies nausea, vomiting, change in bowel habits, fevers, chills. He has a chronic draining abscess of the left infrascapular region for which he sees wound care and oncology for management. Per patient there has been no acute change in drainage or wound size. Last saw Dr. Nieves on 08/23/18. Plan was to resume antibiotic therapy with cefepime on 09/03/2018, following placement of a PICC. Patient was seen and evaluated at the bed side this morning. He reports doing well overnight. Pain is controlled with oral pain medication. He has no other complaints today. Past Med Surg Social Fam HX - Past Medical History Medical history: cancer (Lung dxd in 2007), COPD, other Additional medical history: lung cancer Psychiatric history: no psych history - Past Surgical History Surgical History: cholecystectomy - Social History Smoking Status: Current every day smoker Packs per day: 1/2 PPD Smokeless Tobacco Status: No Alcohol use: none Drug use: none - Family History Brother Race: Family Member Ethnicity: Non- Living Status: Age at : 72 Cause of : Lung cancer Hx Family Cancer: Yes (Lung) Father Race: Family Member Ethnicity: Non- Living Status: Age at : 72 Cause of : Blood clot Hx Family Cardiac Disorders: Yes (Blood clot) Mother Race: Family Member Ethnicity: Non- Living Status: Still Living Hx Family Cardiac Disorders: Yes (HTN) Sister Race: Family Member Ethnicity: Non- Living Status: Still Living Hx Family Medical Disorders: No Medications and Allergies Magnesium Oxide [Magnesium] 400 mg PO BID 09/06/15 [History] Multivitamin [Multivitamins] 1 tab PO DAILY 09/06/15 [History] Oxygen 2 l IH HS 09/06/15 [History] Cyanocobalamin (B-12) [Vitamin B12] 1,000 mcg PO DAILY #30 tablet 11/08/15 [Rx] Fluticasone/Salmeterol [Advair 500-50 Diskus] 1 puff IH BID 12/20/17 [History] Acetaminophen [Tylenol] 650 mg PO Q6HR PRN tablet 12/26/17 [Rx] Albuterol Sulfate [Proair Hfa] 2 puff IH Q4-6H PRN #1 inh 06/17/18 [Rx] Ascorbic Acid [Vitamin C] 500 mg PO DAILY 09/02/18 [History] Docusate [Colace] 100 mg PO BID 09/02/18 [History] FentaNYL PATCH [Duragesic] 100 mcg TD Q72H 09/02/18 [History] Gabapentin [Neurontin] 400 mg PO TID 09/02/18 [History] Ipratropium/Albuterol Neb [Duoneb] 3 ml IH Q6HR PRN 09/02/18 [History] Oxycodone HCl/Acetaminophen [Percocet 10-325 mg Tablet] 1 tab PO Q4H PRN 09/02/18 [History] Tamsulosin [Flomax] 0.4 mg PO DAILY 09/02/18 [History] Allergy/AdvReac Type Severity Reaction Status Date / Time No Known Allergies Allergy Verified 09/02/18 12:55 All systems: reviewed and no additional remarkable complaints except as stated Constitutional: Absent: chills, fever(s), night sweats Eyes: Absent: blurry vision, change in vision, loss of peripheral vision, pain, photophobia Ears: Absent: decreased hearing, ear pain Nose, mouth and throat: Absent: change in voice, dysphagia, epistaxis Cardiovascular: Absent: chest pain, palpitations Respiratory: Absent: cough, hemoptysis Gastrointestinal: Absent: abdominal pain, hematemesis, hematochezia, melena Additional comments: Left hip pain, controlled Integumentary: Absent: new lesions, rash Neurological: Absent: confusion, dizziness, focal weakness, weakness Psychiatric: Absent: behavioral changes, confusion Endocrine: Absent: fatigue Hematologic/Lymphatic: Absent: easy bleeding, easy bruising Oncology - Exam - Constitutional Vitals: Temp Pulse Resp BP Pulse Ox 98.1 F 87 16 126/75 98 09/02/18 06:45 09/02/18 06:45 09/02/18 06:45 09/02/18 06:45 09/02/18 06:45 General appearance: no acute distress Exam: resting comfortably in bed - Head Head exam: Present: atraumatic, normocephalic - Eye Eye exam: Present: PERRL, conjuntiva pink - ENT ENT exam: Present: mucous membranes moist - Neck Neck exam: Present: full ROM. Absent: lymphadenopathy, tenderness - Respiratory Respiratory exam: Present: CTAB - Cardiovascular Cardiovascular exam: Present: RRR, +S1, +S2. Absent: JVD, systolic murmur - GI/Abdominal GI/Abdominal exam: Present: normal bowel sounds, soft. Absent: distended, guarding, rigid - Extremities Exam Extremities exam: Present: tenderness (of the left hip in the setting of acute fracture.). Absent: calf tenderness, pedal edema - Back Exam Additional comments: Draining wound of the left infrascapular region with clean and dry bandage in place. Approximately 3 x 8 cm in size with purulent drainage visible. Minimal erythema is surround the wound. - Neurological Exam Neurological exam: Present: CN II-XII intact, oriented X3 - Psychiatric Psychiatric exam: Present: normal affect, normal mood - Skin Skin exam: Present: dry. Absent: pallor, petechiae Oncology - Results Labs: 09/02/18 09/02/18 05:56 05:56 WBC 7.7 RBC 4.68 Hgb 11.4 L D Hct 36.5 L MCV 78.0 L MCH 24.4 L MCHC 31.2 L RDW 16.0 H Plt Count 273 MPV 9.6 Immature Gran % 0.3 Seg Neutrophils % 73.7 Lymphocytes % 15.0 Monocytes % 8.8 Eosinophils % 1.7 Basophils % 0.5 Neutrophils # 5.7 Lymphocytes # 1.2 Monocytes # 0.7 Eosinophils # 0.1 Basophils # 0.0 Sodium 137 Potassium 3.9 Chloride 106 Carbon Dioxide 27 BUN 10 Creatinine 0.46 L Est GFR ( Amer) > 60 Est GFR (Non-Af Amer) > 60 BUN/Creatinine Ratio 22 Glucose 122 H Calculated Osmolality 284 Calcium 8.6 Magnesium 1.9 Total Bilirubin 0.3 AST 10 L ALT 11 Alkaline Phosphatase 57 Serum Total Protein 6.7 Albumin 3.2 L Globulin 3.5 Albumin/Globulin Ratio 0.9 L Triglycerides 51 Cholesterol 89 LDL Cholesterol, Calc 42 VLDL Cholesterol, Calc 10 HDL Cholesterol 37 L Cholesterol/HDL Ratio 2.4 Consult Discharge Plan - Plan Referrals: Lala Gonzales CNP [Primary Care Provider] - <Gael Erickson - Last Filed: 09/02/18 17:14> Date of Encounter: 09/02/18 - Data of Consult Requesting Physician: Reyna Castillo MD Primary Care Provider: Lala Gonzales CNP - Consult Narrative History of present illness: Mr. Donis is a 68 year old male Oncology - Exam - Constitutional Vitals: Temp Pulse Resp BP Pulse Ox 98.3 F 84 16 129/83 98 09/02/18 14:12 09/02/18 14:12 09/02/18 16:36 09/02/18 14:12 09/02/18 16:36 Oncology - Results Labs: 09/02/18 09/02/18 05:56 05:56 WBC 7.7 RBC 4.68 Hgb 11.4 L D Hct 36.5 L MCV 78.0 L MCH 24.4 L MCHC 31.2 L RDW 16.0 H Plt Count 273 MPV 9.6 Immature Gran % 0.3 Seg Neutrophils % 73.7 Lymphocytes % 15.0 Monocytes % 8.8 Eosinophils % 1.7 Basophils % 0.5 Neutrophils # 5.7 Lymphocytes # 1.2 Monocytes # 0.7 Eosinophils # 0.1 Basophils # 0.0 Sodium 137 Potassium 3.9 Chloride 106 Carbon Dioxide 27 BUN 10 Creatinine 0.46 L Est GFR ( Amer) > 60 Est GFR (Non-Af Amer) > 60 BUN/Creatinine Ratio 22 Glucose 122 H Calculated Osmolality 284 Calcium 8.6 Magnesium 1.9 Total Bilirubin 0.3 AST 10 L ALT 11 Alkaline Phosphatase 57 Serum Total Protein 6.7 Albumin 3.2 L Globulin 3.5 Albumin/Globulin Ratio 0.9 L Triglycerides 51 Cholesterol 89 LDL Cholesterol, Calc 42 VLDL Cholesterol, Calc 10 HDL Cholesterol 37 L Cholesterol/HDL Ratio 2.4 Inpatient Charges Provider: Dr. Joellen Erickson Follow up - Inpatient: [id number] - Attending Attestation I examined this patient and my medical decision-making was reviewed with the Advanced Practice Nurse. I agree with the documented findings, disposition and treatment plan as described except to the extent set forth below. Will culture wound area and consult ID for recommendations on antibiotic course and duration. Will also consult wound care. Per notes, patient to have surgery for left hip fracture later this evening.
[2018-09-02] MEDS: Budesonide/Formoterol 160/4.5 1 PUFF INH IH SCH ×2 (10:47→22:08)
--- NOTE | 2018-09-02 15:26 | Event Note ---
Date of Encounter: 09/02/18 Time of Encounter: 09:00 Pt was admitted this AM,plan per H&P. Pt was seen at bedside. Mild pain controlled by pain meds. 1. Hip fracture: Plan for surgery this afternoon. 2. Left chest wall abscess: Pt was treated by oncology in cancer center, will cont treatment, oncology consult was called by admitting physician. 3. Lung cancer: Oncology on case, will follow recommendations.
--- NOTE | 2018-09-02 19:38 | Anesthesia Evaluation PreOp ---
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]) Anesthesia History: No Prior Anesthetic Complications, Past Anesthesia ([place]) Alcohol Use: none Drug use: none Medications and Allergies Magnesium Oxide [Magnesium] 400 mg PO BID 09/06/15 [History] Multivitamin [Multivitamins] 1 tab PO DAILY 09/06/15 [History] Oxygen 2 l IH HS 09/06/15 [History] Cyanocobalamin (B-12) [Vitamin B12] 1,000 mcg PO DAILY #30 tablet 11/08/15 [Rx] Fluticasone/Salmeterol [Advair 500-50 Diskus] 1 puff IH BID 12/20/17 [History] Acetaminophen [Tylenol] 650 mg PO Q6HR PRN tablet 12/26/17 [Rx] Albuterol Sulfate [Proair Hfa] 2 puff IH Q4-6H PRN #1 inh 06/17/18 [Rx] Ascorbic Acid [Vitamin C] 500 mg PO DAILY 09/02/18 [History] Docusate [Colace] 100 mg PO BID 09/02/18 [History] FentaNYL PATCH [Duragesic] 100 mcg TD Q72H 09/02/18 [History] Gabapentin [Neurontin] 400 mg PO TID 09/02/18 [History] Ipratropium/Albuterol Neb [Duoneb] 3 ml IH Q6HR PRN 09/02/18 [History] Oxycodone HCl/Acetaminophen [Percocet 10-325 mg Tablet] 1 tab PO Q4H PRN 09/02/18 [History] Tamsulosin [Flomax] 0.4 mg PO DAILY 09/02/18 [History] Allergy/AdvReac Type Severity Reaction Status Date / Time No Known Allergies Allergy Verified 09/02/18 12:55 - Meds/Allergy Pre-op Review Medications Reviewed: Yes Allergies Reviewed: Yes Beta Blockers on Current Med List: No Anesthesia Results - Labs 09/02/18 05:56 09/02/18 05:56 Laboratory Results Laboratory Tests 09/02/18 05:56 Est GFR (Non-Af Amer) > 60 - Imaging EKG: image reviewed (ekg dated 87bpm SR, borderline LAD,) Additional studies: ECHO 04/10/2018 EV/EV echocardiogram Impressions: LVEF 60-65%. Normal LV chamber size, wall thickness and function. Normal left ventricular diastolic function. Normal right ventricular structure and function. Mild-moderate mitral regurgitation. Mild pulmonary hypertension. Left Ventricular Wall Motion: Rest Echo Findings All wall segments showed normal motion. CT/CT chest w con IMPRESSION: Overall similar appearing chest with a large cavitary mass centered over the left lung, with destruction of the posterior chest wall and ulceration extending to the skin surface. Overall size and appearance appears essentially unchanged. Minimal nodularity seen within the remaining left lung appear similar to the previous examination as well. No acute cardiopulmonary process is identified. Diffuse emphysematous changes seen within the right lung, without acute abnormality identified. Upper abdominal periaortic lymph node is decreased in size when compared to the previous examination D/ / Declan Solis MD / Declan Solis, Anesthesia Exam Vital Signs Temp Pulse Resp BP Pulse Ox 09/02/18 16:36 16 98 09/02/18 14:12 98.3 F 84 16 129/83 98 09/02/18 10:42 16 99 09/02/18 06:45 98.1 F 87 16 126/75 98 09/02/18 04:31 16 98 09/02/18 04:27 97.9 F 85 12 121/71 09/02/18 00:27 16 98 09/01/18 23:57 97.9 F 97 16 117/74 97 09/01/18 21:18 95 Intake and Output 09/02/18 09/02/18 09/02/18 07:59 15:59 23:59 Intake Total 1000 / 1000 Output Total 200 / 200 Balance -200 / -200 1000 / 1000 Intake: IV Fluids 1000 / 1000 0.9 % Sodium Chloride 1,000 ML 1000 / 1000 @ 75 mls/hr IVC .[id number] [facility]A Rx #:[id number] Output: Urine 200 / 200 Height: 5'9 Weight: 122# BMI = 18 NPO (# of Hours): >8hr - HEENT Pupil (Motor): Pupils equal, EOMI Teeth: Edentulous Oral Opening: Greater than 3 - PROFESSIONAL CASTER LOC: Oriented PROFESSIONAL CASTER Motor: Normal RUE, Normal LUE, Normal RLE, Normal LLE, Normal Face PROFESSIONAL CASTER Sensory: Normal: RUE, LUE, RLE, LLE, Face - Cardiac Rhythm: Regular Murmur: None - Pulmonary Breath Sounds: bilateral Clear Respiratory Effort: Symmetrical Anesthesia Assess/Plan ASA Score: 4 (Lung Ca, Smoker, COPD) Level of consciousness: Cooperative, Oriented, Tranquil Anesthetic Plan: General Monitoring Plan: Standard Monitors Recovery Plan: PACU Anes Supervising Prov Stmt: Pt seen/evaluated, R&B Discussed questions answered and consent obtained. Renetta Miller MD
[2018-09-02] MEDS ORDERED: Lidocaine -MPF 2% 2 ML VIAL ONE ×2 (19:51→20:51)
[2018-09-02] MEDS ORDERED: *HR* Propofol 200 MG/20 ML VIAL IVP ONE (19:52)
[2018-09-02] MEDS ORDERED: *HR* Midazolam HCl 2 MG/2 ML VIAL ONE ×2 (19:52→19:54)
[2018-09-02] MEDS ORDERED: *HR* FentaNYL (PF) 100 MCG/2 ML VIAL ONE ×2 (19:52→22:19)
[2018-09-02] MEDS ORDERED: Gentamicin 300 MG in 0.9 % Sodium Chloride 100 ML IVPB ONE ×2 (20:30→23:37)
[2018-09-02] MEDS ORDERED: Acetaminophen IV 1,000 MG/100 ML INFUS..BTL ONE (21:20)
[2018-09-02] MEDS ORDERED: Ondansetron 4 MG/2 ML VIAL ONE (22:47)
[2018-09-02] MEDS ORDERED: Dexamethasone 4 MG/ML VIAL ONE (22:47)
[2018-09-02] MEDS ORDERED: *HR* HYDROmorphone (PF) 1 MG/ML SYRINGE ONE (23:11)
[2018-09-02] MEDS: *HR* HYDROmorphone (PF) 1 MG/ML SYRINGE IVP PRN ×2 (23:17→23:27)
[2018-09-02] MEDS ORDERED: Acetaminophen 325 MG TABLET PO PRN (23:37)
[2018-09-02] MEDS ORDERED: Naloxone 0.4 MG/ML INJ IVP PRN (23:37)
[2018-09-02] MEDS ORDERED: *HR* HYDROmorphone (PF) 1 MG/ML SYRINGE IVP PRN (23:37)
--- NOTE | 2018-09-02 23:38 | Operative Note ---
Date of procedure: 09/02/18 Pre-op diagnosis: Left femoral neck fracture Post-op diagnosis: same Procedure: 1. Percutaneous screw fixation left hip 2. Fluoroscopic guidance for percutaneous screw fixation left hip Implants: 3 Synthes 7.3 mm cannulated screws with 16 mm thread length Complications: None Anesthesia: LEXXA Surgeon: Raghav Mayfield Was there an surveyor instrument assistant present: No Estimated blood loss (cc): 25 Specimen: None Condition: stable Disposition: PACU Procedure in Detail: Gross findings: Preoperative x-rays revealed a left femoral neck fracture. There was some deformity but little evidence of a displaced fracture. Patient did have a history of a previous hip injury in the very distant past. Intraoperative findings revealed some previous deformity with some arthritic spurring of the head. The femoral head was reduced with the minimal amount of traction some right ear duction and again limited internal rotation. Once the fracture was reduced and stabilized with 3 cannulated hip screws. These were well-contained within the femoral head as verified with multiplane are fluoroscopy. Procedure: Patient was taken the operating room and while the hospital bed was administered general anesthesia. At this time the patient had a posterior left pleural cutaneous fistula Parra was cleaned and sealed with OpSite. She was then transferred to the fracture table. Left lower extremity was placed longitudinal traction right lower extremity position out of harm's way and well leg villatoro. Fluoroscopy was introduced. This was used to guide the reduction which was obtained with a combination of adduction, limited traction and internal rotation. Once verified to be reduced the left hip was prepped and draped in normal standard fashion for surgery. A left lateral hip incision was created. Dissection was carried to the scanty adipose and subcutaneous tissue down the level of fascia jg which was cleared split length the incision. The lateral femoral cortex was exposed. At this time 3 guide pins were placed into the femoral head. The 2 most inferior screws were placed in a slightly anterior position and again placed inferiorly. The screws were placed prior to placing the more proximal screw which is a relatively central location. Once verified to be well contained the guide pins were removed. Wound was irrigated and closed with running #1 Vicryl in the fascia followed by #1 Vicryl in the deep subcutaneous tissue and then 2-0 undyed Vicryl placing inverted interrupted manner immediate septated his leg in an skin approximation with a running septic her stitches of 30 status fix. This is followed by barbie skin glue and then a honeycomb OpSite. Patient was now transferred from the operating table hospital bed and then transported to the postanesthesia care unit in stable and satisfactory condition. All sponge needle evidence for counts are correct. No specimens are sent for pathology.
[2018-09-03] MEDS: traMADol 50 MG TABLET PO PRN ×2 (00:42→22:34)
[2018-09-03] MEDS: 0.9 % Sodium Chloride 1,000 ML IVC SCH ×2 (00:43→15:03)
--- NOTE | 2018-09-03 01:15 | Anesthesia Evaluation Post Op ---
Date of Encounter: 09/03/18 Time of Encounter: 23:50 - Vital Signs Vital Signs: Vital Signs/O2 Sat/Glucose, Most Current Temp Pulse Resp BP Pulse Ox 09/02/18 23:45 98.3 F 89 24 133/72 95 09/02/18 23:35 98.6 F 90 24 142/84 94 09/02/18 23:25 90 26 142/73 95 09/02/18 23:15 94 26 136/80 97 09/02/18 23:05 98.7 F 103 24 138/82 96 - Lungs Lungs: Clear Ascult./Percussion (per baseline) - Airway Airway: Non-obstructed - Cardiovascular Regular Rate, Baseline Rhythm - Mental Status Mental Status: Alert & Oriented, Answers Appropriately - Pain Pain Scale: 4 Pain Scale used: Numeric (1 - 10) - Nausea Vomiting Nausea Vomiting: Not Present - Hydration Hydration: Tolerates oral liquids - Discharge PostOp Status: Transfer Patient to floor Anes Supervising Prov Stmt: Pt seen/evaluated, VSS And has met criteria for discharge to floor. - MD Paul
[2018-09-03] MEDS: OXYCODONE Oral CONC 10 MG/0.5 ML ORAL.SYG SL PRN ×2 (03:11→17:45)
[2018-09-03] MEDS: Ipratropium/Albuterol Neb 3 ML IH SCH ×4 (04:07→21:48)
[2018-09-03 05:59] LABS: Basophils % 0.1 %; Hematocrit 37.4 % (37.5-50.1); Hemoglobin 11.8 g/dL (12.9-16.9); Immature Granulocytes % 0.5 % (0-4); Lymphocytes # 0.6 K/mcL (0.6-4.6); Lymphocytes % 7.5 %; Mean Corpuscular HGB Conc 31.6 g/dL (31.6-35.5); Mean Corpuscular Hemoglobin 24.6 pg (28.0-33.3); Mean Corpuscular Volume 78.1 fL (83.0-100.0); Mean Platelet Volume 9.2 fL (9.4-12.4); Monocytes # 0.3 K/mcL (0.0-1.3); Monocytes % 3.5 %; Neutrophils # 6.9 K/mcL (1.6-8.9); Platelet Count 272 K/mcL (140-400); Red Blood Count 4.79 M/mcL (4.19-5.50); Red Cell Distribution Width 15.9 % (11.5-14.5); Segmented Neutrophils % 88.4 %
[2018-09-03] MEDS: *HR* Enoxaparin 30 MG/0.3 ML SYRINGE SQ SCH ×2 (06:07→17:45)
[2018-09-03 06:25] LABS: Alanine Aminotransferase 12 Units/L (7-52); Albumin 3.1 g/dL (3.5-5.7); Albumin/Globulin Ratio 0.9 (1.1-2.2); Alkaline Phosphatase 59 Units/L (34-104); Aspartate Amino Transferase 13 Units/L (13-39); BUN/Creatinine Ratio 16 (6-26); Bilirubin,Total 0.2 mg/dL (0.3-1.0); Blood Urea Nitrogen 7 mg/dL (8-23); Calcium 8.2 mg/dL (8.6-10.3); Carbon Dioxide 25 mEq/L (23-29); Chloride 104 mEq/L (98-107); Globulin 3.4 g/dL (2.4-3.5); Glucose 172 mg/dL (70-105); Osmolality,Calculated 284 (280-300); Sodium 136 mEq/L (136-145); Total Protein 6.5 g/dL (6.4-8.9); eGFR For Non-African Americans > 60 (> 60)
[2018-09-03] MEDS: Magnesium Oxide 400 MG TABLET PO SCH ×2 (07:59→22:35)
[2018-09-03] MEDS: Cyanocobalamin (B-12) 1,000 MCG TABLET PO SCH (07:59)
[2018-09-03] MEDS: Multivit/Ca/Min/Fe/FA 1 TAB TABLET PO SCH (07:59)
[2018-09-03] MEDS: Budesonide/Formoterol 160/4.5 1 PUFF INH IH SCH ×2 (10:49→21:48)
--- NOTE | 2018-09-03 10:54 | Oncology Inp Progress Note ---
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 -Follows with Dr Nieves with [facility] and Dr. Lieberman with wound care, last saw Dr. Nieves on 08/23 -Wound remains positive by culture for Pseudomonas -Currently on antibiotic treatment break, was supposed to return [facility] on 09/03 for PICC and abx restart with cefepime 2 g for 28 days. -Does not appear to be acutely ill from infection Plan: -Have discussed with infectious diseases and asked for consult regarding treatment of chronic draining wound, appreciate their recommendations and consultation as always. 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 Size 5 x 5.4 cm, squamous cell, poorly differentiated carcinoma. -Completed concurrent chemoradiation with Navelbine, cetuximab. Not currently on treatment -Follows with Dr. Nieves, last seen 08/23/2018 -CT Chest 08/19/2018, stable disease burden, no new lymphadenopathy or tumor extension. Plan: Continue outpatient follow up as planned with Dr. Nieves. Qualifiers: Laterality: left Lung location: lower lobe of lung Qualified Code(s): C34.32 - Malignant neoplasm of lower lobe, left bronchus or lung (4) Hip fracture Current Visit: Yes Status: Inactive Assessment and plan: Acute Left subcapital hip fracture Plan: Post operative day 1 from percutaneous screw fixation of left hip fracture with orthopedic surgery. Qualifiers: Encounter type: initial encounter Fracture type: closed Laterality: left Qualified Code(s): S72.002A - Fracture of unspecified part of neck of left femur, initial encounter for closed fracture Oncology: Subj Interval history: Patient reports that surgery went well. His pain is tolerable with medication. Has not yet been out of bed. Appetite is good without difficulty eating. Denies nausea, vomiting, change in bowels, fever, chills. No new or acute complaints at this time. - Constitutional Vitals: Vital Signs Temp Pulse Resp BP Pulse Ox 09/03/18 10:10 97.8 F 85 16 111/65 96 09/03/18 06:32 97.8 F 67 16 128/73 99 09/03/18 04:07 16 98 09/03/18 03:00 97.8 F 64 16 123/75 99 09/03/18 02:00 97.8 F 89 16 123/70 99 09/03/18 01:00 97.7 F 91 16 138/72 99 09/03/18 00:30 97.7 F 85 16 137/75 97 09/03/18 00:00 97.5 F L 88 16 145/72 96 09/02/18 23:45 98.3 F 89 24 133/72 95 09/02/18 23:35 98.6 F 90 24 142/84 94 09/02/18 23:25 90 26 142/73 95 09/02/18 23:15 94 26 136/80 97 09/02/18 23:05 98.7 F 103 24 138/82 96 09/02/18 16:36 16 98 09/02/18 14:12 98.3 F 84 16 129/83 98 Intake and Output 09/02/18 09/03/18 09/03/18 23:59 07:59 15:59 Intake Total 1000 / 1000 150 / 150 Output Total 25 / 25 400 / 400 375 / 375 Balance 975 / 975 -250 / -250 -375 / -375 Intake: IV Fluids 1000 / 1000 100 / 100 0.9 % Sodium Chloride 1,000 ML 1000 / 1000 @ 75 mls/hr IVC .[id number] [facility] Rx #:[id number] Ancef 2,000 MG In 0.9 % Sodium 100 / 100 Chloride 100 ML @ 200 mls/hr IVPB Q8HR [facility]A Rx#:[id number] Oral 50 / 50 Output: Urine 400 / 400 375 / 375 Estimated Blood Loss 25 / 25 General appearance: no acute distress Exam: mildly cachectic and chronically ill in appearance - Head Head exam: Present: atraumatic, normocephalic - Eye Eye exam: Present: PERRL, conjuntiva pink - ENT ENT exam: Present: mucous membranes moist - Neck Neck exam: Present: full ROM. Absent: lymphadenopathy, tenderness - Respiratory Respiratory exam: Present: CTAB. Absent: accessory muscle use, wheezes - Cardiovascular Cardiovascular exam: Present: RRR, +S1, +S2. Absent: diastolic murmur, systolic murmur - GI/Abdominal GI/Abdominal exam: Present: normal bowel sounds, soft. Absent: tenderness - Extremities Exam Extremities exam: Present: normal inspection, tenderness (Expected tenderness of the left hip region postoperatively). Absent: pedal edema - Neurological Exam Neurological exam: Present: alert, CN II-XII intact, oriented X3, no focal deficits - Psychiatric Psychiatric exam: Present: normal affect, normal mood - Skin Skin exam: Present: dry Oncology: Obj Data - Labs CBC & Chem 7: 09/03/18 05:38 09/03/18 05:38 Labs: Laboratory Results - last 24 hr 09/03/18 09/03/18 05:38 05:38 WBC 7.8 RBC 4.79 Hgb 11.8 L Hct 37.4 L MCV 78.1 L MCH 24.6 L MCHC 31.6 RDW 15.9 H Plt Count 272 MPV 9.2 L Immature Gran % 0.5 Seg Neutrophils % 88.4 Lymphocytes % 7.5 Monocytes % 3.5 Eosinophils % 0.0 Basophils % 0.1 Neutrophils # 6.9 Lymphocytes # 0.6 Monocytes # 0.3 Eosinophils # 0.0 Basophils # 0.0 Sodium 136 Potassium 4.0 Chloride 104 Carbon Dioxide 25 BUN 7 L Creatinine 0.43 L Est GFR ( Amer) > 60 Est GFR (Non-Af Amer) > 60 BUN/Creatinine Ratio 16 Glucose 172 H Calculated Osmolality 284 Calcium 8.2 L Total Bilirubin 0.2 L AST 13 ALT 12 Alkaline Phosphatase 59 Serum Total Protein 6.5 Albumin 3.1 L Globulin 3.4 Albumin/Globulin Ratio 0.9 L - Impressions Impressions Fluoroscopy 09/02/18 21:50 IMPRESSION: Intraoperative fluoroscopy for internal fixation of the left hip. D/ / Roberto Del Valle MD / Roberto Del Valle MD Interpreting Provider: Roberto Del Valle MD Consult Discharge Plan - Plan Referrals: Lala Gonzales, DRAW FRAME TENDER [Primary Care Provider] - <Gael Erickson - Last Filed: 09/03/18 17:40> Date of Encounter: 09/03/18 - Constitutional Vitals: Vital Signs Temp Pulse Resp BP Pulse Ox 09/03/18 14:39 97.9 F 83 16 118/67 95 09/03/18 10:10 97.8 F 85 16 111/65 96 09/03/18 06:32 97.8 F 67 16 128/73 99 09/03/18 04:07 16 98 09/03/18 03:00 97.8 F 64 16 123/75 99 09/03/18 02:00 97.8 F 89 16 123/70 99 09/03/18 01:00 97.7 F 91 16 138/72 99 09/03/18 00:30 97.7 F 85 16 137/75 97 09/03/18 00:00 97.5 F L 88 16 145/72 96 09/02/18 23:45 98.3 F 89 24 133/72 95 09/02/18 23:35 98.6 F 90 24 142/84 94 09/02/18 23:25 90 26 142/73 95 09/02/18 23:15 94 26 136/80 97 09/02/18 23:05 98.7 F 103 24 138/82 96 Intake and Output 09/03/18 09/03/18 09/04/18 08:59 16:59 00:59 Intake Total 100 / 100 1000 / 1000 Output Total 575 / 575 750 / 750 Balance -475 / -475 250 / 250 Intake: IV Fluids 100 / 100 1000 / 1000 0.9 % Sodium Chloride 1,000 ML 1000 / 1000 @ 75 mls/hr IVC .[id number] [facility] Rx #:[id number] Ancef 2,000 MG In 0.9 % Sodium 100 / 100 Chloride 100 ML @ 200 mls/hr IVPB Q8HR [facility] Rx#:[id number] Output: Urine 575 / 575 750 / 750 Oncology: Obj Data - Labs CBC & Chem 7: 09/03/18 05:38 09/03/18 05:38 Labs: Laboratory Results - last 24 hr 09/03/18 09/03/18 05:38 05:38 WBC 7.8 RBC 4.79 Hgb 11.8 L Hct 37.4 L MCV 78.1 L MCH 24.6 L MCHC 31.6 RDW 15.9 H Plt Count 272 MPV 9.2 L Immature Gran % 0.5 Seg Neutrophils % 88.4 Lymphocytes % 7.5 Monocytes % 3.5 Eosinophils % 0.0 Basophils % 0.1 Neutrophils # 6.9 Lymphocytes # 0.6 Monocytes # 0.3 Eosinophils # 0.0 Basophils # 0.0 Sodium 136 Potassium 4.0 Chloride 104 Carbon Dioxide 25 BUN 7 L Creatinine 0.43 L Est GFR ( Amer) > 60 Est GFR (Non-Af Amer) > 60 BUN/Creatinine Ratio 16 Glucose 172 H Calculated Osmolality 284 Calcium 8.2 L Total Bilirubin 0.2 L AST 13 ALT 12 Alkaline Phosphatase 59 Serum Total Protein 6.5 Albumin 3.1 L Globulin 3.4 Albumin/Globulin Ratio 0.9 L - Impressions Impressions Fluoroscopy 09/02/18 21:50 IMPRESSION: Intraoperative fluoroscopy for internal fixation of the left hip. D/ / Roberto Del Valle MD / Roberto Del Valle MD Interpreting Provider: Roberto Del Valle MD Inpatient Charges Provider: Dr. Joellen Erickson Follow up - Inpatient: [id number] - Attending Attestation I examined this patient and my medical decision-making was reviewed with the Advanced Practice Nurse. I agree with the documented findings, disposition and treatment plan as described except to the extent set forth below. -Will obtain a repeat CT guided biopsy of large cavity mass in left lung, and a biopsy of periaortic LN. -Will send biopsies off for fungal and bacterial stains. -ID c/s for previous wound infection, appreciate recommendations.
--- NOTE | 2018-09-03 11:38 | Infectious Disease Consult ---
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 This is likely a source control issue. It is highly unlikely that the infection will clear and the wound will heal without adequate source control and surgical debridement of the wound. Giving prolonged IV antibiotics without adequate source control will likely lead to further development of drug-resistant strains of bacteria. Currently on cefazolin. Most recent susceptibilities show sensitivity to Cefepime, although it is highly unlikely that it is truly susceptible. Recommendations: - Repeat wound cultures. - Consult wound care for dressing changes. - Consult CTS for further recommendations. - If repeat wound culture positive for PSEA, will need to send for Avycaz, Colistin, and Zerbaxa susceptibilities. - Discontinue cefazolin. - Start Cefepime 2 grams IV Q12H until wound culture is back. - Duration of treatment depends on the clinical picture. - Monitor renal function and dose-adjust antibiotics. (2) Radiation necrosis of skin and subcutaneous Status: Acute Assessment and plan: Location: Left infrascapular area. Dressing changes per the wound care team. (3) Lung mass Status: Chronic Assessment and plan: CT of the chest 08/19/18 showed large cavitary lung mass over the left lung. Not sure if this is cancer vs. abscess vs. other. CTS (4) History of treatment for malignancy Status: Acute Assessment and plan: Diagnosed with non-small cell lung cancer in 2007. Previously treated with chemo and radiation. Not currently on treatment. Hem/Onc consulted and following. (5) Tobacco abuse Status: Chronic (6) COPD (chronic obstructive pulmonary disease) Status: Chronic Qualifiers: COPD type: unspecified COPD Qualified Code(s): J44.9 - Chronic obstructive pulmonary disease, unspecified Infectious Disease HPI - Data of Consult Patient: new to practice Consult date: 09/03/18 Requesting Physician: Claudine Shields MD Primary Care Provider: Lala Gonzales CNP - Consult Narrative Reason for consult: Chronic left wound History of present illness: Mr. 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 The patient was admitted to the hospital 09/01/18 for left hip fracture. We are consult 09/03/18 for antibiotic recommendations for chronic left infrascapular wound. Briefly, the patient is a 68-year-old male with a past medical history as stated above. The patient presented to the emergency department at [facility] with complaints of left hip pain status post fall 3 days prior to arrival. Upon arrival, the patient was afebrile hemodynamically stable. He had a left hip x-ray that showed a left femoral neck fracture he was transferred here for orthopedic evaluation. Since admission, the patient has remained afebrile and hemodynamically stable. He was evaluated by orthopedics and taken to the operating room 09/02/18 and underwent a percutaneous screw fixation of the left hip. He has done well postoperatively. Currently, the patient is on IV Ancef. According to the oncology records, the patient has had a chronic nonhealing ulcer to the left infrascapular area since December 2017 that was deemed to be from radiation necrosis. Wound cultures have been persistently positive for multiple strains of Pseudomonas. Most recently, the patient had a wound culture on 08/05/18 that was positive for multidrug-resistant Pseudomonas sensitive only to cefepime, gentamicin, and tobramycin. The patient has had multiple courses of IV antibiotics including 28 days worth of ceftazidime 05/14/18-06/11/18, 07/09/18- 08/06, and plans to re-start antibiotics with IV cefepime 09/03/18. The patient was evaluated by cardiothoracic surgery back in January and was planning to perform a chest wall excision with lung resection and plastic reconstruction, but the patient's frail health state required cancellation of the surgery. He has continued to follow with wound care at [facility], but has had minimal success. He had a CT of the chest 08/19 showed a large cavitary mass over the left lung with destruction of the posterior chest wall and ulceration extending to the skin surface. We have been asked to evaluate and make antibiotic recommendations. During my exam today, the patient states that he has been in his usual state of health. Denies fevers, chills, or rigors. Denies chest pain, shortness of breath, or cough. Denies nausea, vomiting, or diarrhea. Denies abdominal pain or urinary complaints. 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 Reported left hip pain with ambulation so he came to the ER. Reports ongoing ulceration to the infrascapular area with purulent drainage and pain. Denies oral thrush or other lesions. Reports expected post-op pain in the left hip and thigh, but otherwise denies complaints. The patient lives at home alone. He smokes a half a pack of cigarettes per day. Denies alcohol or illicit drug use. Denies recent travel outside the [facility]. Denies animal or pet exposure. CC: Claudine Shields MD Past Med Surg Social Fam HX - Past Medical History Attestation: Yes The following information was validated with the patient. Source: patient, old records reviewed, nursing notes reviewed Medical history: cancer (Lung dxd in 2007), COPD, other Additional medical history: lung cancer Psychiatric history: no psych history - Past Surgical History Surgical History: cholecystectomy - Social History Smoking Status: Current every day smoker Packs per day: 1/2 PPD Smokeless Tobacco Status: No Alcohol use: none Drug use: none Occupational status: retired Current living situation: Home Activity Level: Independent ambulation Recent Out of Country Travel Within the Last 8 Weeks: No Exposure or Possible Exposure to Illness During Travel: No - Family History Brother Race: Family Member Ethnicity: Non- Living Status: Age at : 72 Cause of : Lung cancer Hx Family Cancer: Yes (Lung) Father Race: Family Member Ethnicity: Non- Living Status: Age at : 72 Cause of : Blood clot Hx Family Cardiac Disorders: Yes (Blood clot) Mother Race: Family Member Ethnicity: Non- Living Status: Still Living Hx Family Cardiac Disorders: Yes (HTN) Sister Race: Family Member Ethnicity: Non- Living Status: Still Living Hx Family Medical Disorders: No Infectious Disease-CN:Meds RX: Magnesium Oxide [Magnesium] 400 mg PO BID 09/06/15 [History] RX: Multivitamin [Multivitamins] 1 tab PO DAILY 09/06/15 [History] RX: Oxygen 2 l IH HS 09/06/15 [History] RX: Cyanocobalamin (B-12) [Vitamin B12] 1,000 mcg PO DAILY #30 tablet 11/08/15 [Rx] RX: Fluticasone/Salmeterol [Advair 500-50 Diskus] 1 puff IH BID 12/20/17 [History] RX: Acetaminophen [Tylenol] 650 mg PO Q6HR PRN tablet 12/26/17 [Rx] Albuterol Sulfate [Proair Hfa] 2 puff IH Q4-6H PRN #1 inh 06/17/18 [Rx] FentaNYL PATCH [Duragesic] 100 mcg TD Q72H 09/02/18 [History] Ipratropium/Albuterol Neb [Duoneb] 3 ml IH Q6HR PRN 09/02/18 [History] Oxycodone HCl/Acetaminophen [Percocet 10-325 mg Tablet] 1 tab PO Q4H PRN 09/02/18 [History] RX: Ascorbic Acid [Vitamin C] 500 mg PO DAILY 09/02/18 [History] RX: Docusate [Colace] 100 mg PO BID 09/02/18 [History] RX: Gabapentin [Neurontin] 400 mg PO TID 09/02/18 [History] RX: Tamsulosin [Flomax] 0.4 mg PO DAILY 09/02/18 [History] Allergy/AdvReac Type Severity Reaction Status Date / Time No Known Allergies Allergy Verified 09/02/18 12:55 All systems: reviewed and no additional remarkable complaints except as stated Exam - Constitutional Vitals: Temp Pulse Resp BP Pulse Ox 97.8 F 85 16 111/65 96 09/03/18 10:10 09/03/18 10:10 09/03/18 10:10 09/03/18 10:10 09/03/18 10:10 General appearance: average body habitus, cooperative, no acute distress - Head Head exam: Present: atraumatic, normal inspection, normocephalic - Eye Eye exam: Present: EOMI, normal appearance, PERRL Pupils: Present: normal accommodation - ENT ENT exam: Present: mucous membranes moist - Neck Neck exam: Present: normal inspection - Respiratory Respiratory exam: Present: CTAB. Absent: rales, respiratory distress, rhonchi, wheezes - Cardiovascular Cardiovascular exam: Present: RRR, +S1, +S2 - GI/Abdominal GI/Abdominal exam: Present: normal bowel sounds, soft. Absent: distended, tenderness - Extremities Exam Extremities exam: Absent: normal inspection (Left lateral thigh surgical site with honeycomb dressing C/D/I. No surrounding erythema, warmth, or drainage noted.), pedal edema - Back Exam Back exam: Absent: normal inspection (Unstageable ulceration noted to the left scapula area with bone exposed and purulent foul-smelling drainage noted. Tenderness noted with palpation. ) - Neurological Exam Neurological exam: Present: alert, oriented X3, no focal deficits - Psychiatric Psychiatric exam: Present: normal affect, normal mood - Skin Skin exam: Present: dry, intact, normal color, warm Infectious Disease CN: Results - Labs CBC & Chem 7: 09/03/18 05:38 09/03/18 05:38 - VTE Documentation of Mechanical Device: Graduated compression elastic hosiery Consult Discharge Plan - Plan Referrals: Lala Gonzales CNP [Primary Care Provider] - - Attending Attestation I examined this patient and my medical decision-making was reviewed with the Resident Physician. I agree with the documented findings, disposition and treatment plan as described except to the extent set forth below. This is an addendum to original report dictated by Mamta Gasca CNP. Please refer to Kathryn robertson for full detail. Patient is a 68-year-old gentleman with extensive past medical history mentioned below including history of non-small cell lung cancer diagnosed in 2007 who is right now stable and not getting any chemotherapy presented to [facility] on 09/01/2018 status post fall and had a left hip fracture requiring percutaneous screw fixation of the left hip by Dr. Mayfield on 09/02/2018. Patient apparently has had a large ulcerated wound under the left scapula that was open and in the was an abscess and is actual visible owns taking out. Patient has had multiple cultures in the past both were positive for Pseudomonas and has been on this persistent ceftazidime 4 weeks on 4 weeks off for quite some time. Patient was evaluated by cardiothoracic surgeon in the past but apparently was not stable enough to do the procedure. I personally looked at the CAT scan and it is impressive is the cavitary lesion that is going through the chest wall and protruding from the back and there is an actual bone coming out. Assessment and plan: Radiation necrosis of the skin and subcutaneous tissue Wound infection Osteomyelitis Lung mass History of treatment for malignancy Tobacco abuse Recommendations Patient needs cardiothoracic surgery and probably plastic surgery. As long as there is exposed bone is no antibiotic and given that with her this. He will just have more and more resistance. I do not believe cefepime wound work because the patient is resistant to ceftazidime and usually we have a class resistance. The only real option we have right now is aminoglycoside. I will talk to the patient and to the hematology oncology team to see if they are willing to take that chance. I would like to repeat cultures and sensitivities susceptibility for Avycaz, colistin and Zerbaxa. Monitor labs and for drug tox icity
--- NOTE | 2018-09-03 13:22 | Internal Med Progress Note ---
Hospitalist Progress Note - Encounter Date of Encounter: 09/03/18 Time of Encounter: 13:20 - Subjective Interval History: Patient seen and examined at bedside. Complains of back pain and minimal leg pain. No fever, chills, N/V/D. Tolerating diet well. - Exam Vitals: Temp Pulse Resp BP Pulse Ox 97.8 F 85 16 111/65 96 09/03/18 10:10 09/03/18 10:10 09/03/18 10:10 09/03/18 10:10 09/03/18 10:10 Exam: General: In no acute distress. Conversant. thinly built Respiratory exam: Decreased air entry on left. no accessory muscle use, rales, rhonchi, wheezes. Crackles at Lt base. erythema, swelling and tenderness on Lt chest wall on back. Cardiovascular exam: RRR, +S1, +S2. no murmur, gallop, rubs. GI/Abdominal exam: Non-tender, Non-distended, normal bowel sounds, soft, no peritoneal signs. Extremities exam: no pedal edema, warm, pulses palpable in b/l lower extremities. no calf tenderness. Post opt wound on Lt thigh laterally. Neurological exam: CN II-XII intact, AO X3, no focal deficits. no pronater drift, facial droop, speech deficit Skin exam: cellulitic changes on back along with ulcer and surround erythema, swelling and discharge. Tenderness around. - Assessment and Plan (1) Lung cancer Current Visit: Yes Status: Chronic (2) Abscess of skin Current Visit: Yes Status: Chronic (3) Tobacco abuse Current Visit: Yes Status: Chronic (4) DVT prophylaxis Current Visit: Yes Status: Acute (5) Hip fracture Current Visit: Yes Status: Inactive (6) COPD (chronic obstructive pulmonary disease) Current Visit: Yes Status: Chronic (7) Tobacco abuse counseling Current Visit: Yes Status: Acute - Summary of Assessment and Plan Summary of Assessment and Plan: Hip fracture - s/p percutatenous scew fixation of Lt hip - Pain control with oxycodone and tramadol. - PT/OT evaluation Abscess/ulceration of skin - CT with cavitory lesion - Long standing skin infection with ulceration and bony destruction on back - Multiple antbiotic treatment for psuedomonas since last 5 montsh. - ID consulted. Recommendation appreciated. - Cefazolin changed to cefepime. Wounds recultured. - Will consult CT surgeon for options for source control. - incentive spiromentry. COPD - prn bronchodilators. - c/w home symbicort Lung cancer - poorly differentiated non-small cell of left lower chest wall since 2007. s/p chemo radiateion - to be followed outpatient - Oncology following. DVT prophylaxis - lovenox 30 q12 since - Time Spent with Patient Total time spent is greater than 50% in coordination of care (as documented) at patient's floor/unit and/or counseling patient: Internal Medicine: Result - Labs CBC & Chem 7: 09/03/18 05:38 09/03/18 05:38 Labs: Short CBC 09/03/18 Range/Units 05:38 WBC 7.8 (4.3-11.1) K/mcL Hgb 11.8 L (12.9-16.9) g/dL Hct 37.4 L (37.5-50.1) % Plt Count 272 (140-400) K/mcL Neutrophils # 6.9 (1.6-8.9) K/mcL BMP 09/03/18 05:38 Sodium 136 Potassium 4.0 Chloride 104 Carbon Dioxide 25 BUN 7 L Creatinine 0.43 L Glucose 172 H Calcium 8.2 L Liver Function 09/03/18 Range/Units 05:38 Total Bilirubin 0.2 L (0.3-1.0) mg/dL AST 13 (13-39) Units/L ALT 12 (7-52) Units/L Alkaline Phosphatase 59 (34-104) Units/L Albumin 3.1 L (3.5-5.7) g/dL - Impressions Impressions Fluoroscopy 09/02/18 21:50 IMPRESSION: Intraoperative fluoroscopy for internal fixation of the left hip. D/ / Roberto Del Valle MD / Roberto Del Valle MD Interpreting Provider: Roberto Del Valle MD - VTE Documentation of Mechanical Device: Graduated compression elastic hosiery Consult Discharge Plan - Plan Referrals: Lala Gonzales, MASSAGE THERAPY INSTRUCTOR [Primary Care Provider] - (1) Lung cancer Qualifiers: Laterality: left Lung location: lower lobe of lung Qualified Code(s): C34.32 - Malignant neoplasm of lower lobe, left bronchus or lung (2) Abscess of skin Qualifiers: Site of cutaneous abscess: trunk Site of cutaneous abscess of trunk: back Qualified Code(s): L02.212 - Cutaneous abscess of back [any part, except buttock] (5) Hip fracture Qualifiers: Encounter type: initial encounter Fracture type: closed Laterality: left Qualified Code(s): S72.002A - Fracture of unspecified part of neck of left fem ur, initial encounter for closed fracture (6) COPD (chronic obstructive pulmonary disease) Qualifiers: COPD type: unspecified COPD Qualified Code(s): J44.9 - Chronic obstructive pulmonary disease, unspecified
[2018-09-03] MEDS: Cefepime HCl 2,000 MG in Water for inj. (sterile) 20 ML 20 ML IVP SCH (17:44)
--- NOTE | 2018-09-03 19:56 | Electrocardiograph Report ---
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
--- NOTE | 2018-09-03 20:24 | Orthopedics Progress Note ---
Date of Encounter: 09/03/18 Time of Encounter: 20:21 Subjective Principal diagnosis: Left femoral neck fracture Interval history: 09/03/2018. Patient is postop day #1 percutaneous pinning left hip. Patient is doing very well. Minimal left hip pain. Back remains his primary pain generator. Vital signs are stable. Patient is afebrile. Hip dressings are clean and dry. Hemoglobin and platelet count normal. Impression POD #1 percutaneous pinning left hip Recommendation: Orthopedic status is stable. Patient can be weightbearing as tolerated with assistive device. with an intact dressing, the patient can shower. Patient will need follow-up with me in about 3 or 4 weeks after discharge. Objective Vital signs: Vital Signs Temp Pulse Resp BP Pulse Ox 09/03/18 18:29 98.8 F 90 16 127/68 95 09/03/18 14:39 97.9 F 83 16 118/67 95 09/03/18 10:49 96 09/03/18 10:10 97.8 F 85 16 111/65 96 09/03/18 06:32 97.8 F 67 16 128/73 99 09/03/18 04:07 16 98 09/03/18 03:00 97.8 F 64 16 123/75 99 09/03/18 02:00 97.8 F 89 16 123/70 99 09/03/18 01:00 97.7 F 91 16 138/72 99 09/03/18 00:30 97.7 F 85 16 137/75 97 09/03/18 00:00 97.5 F L 88 16 145/72 96 09/02/18 23:45 98.3 F 89 24 133/72 95 09/02/18 23:35 98.6 F 90 24 142/84 94 09/02/18 23:25 90 26 142/73 95 09/02/18 23:15 94 26 136/80 97 09/02/18 23:05 98.7 F 103 24 138/82 96 Intake and Output 09/03/18 09/03/18 09/03/18 07:59 15:59 23:59 Intake Total 150 / 150 1000 / 1000 20 / 20 Output Total 400 / 400 1125 / 1125 Balance -250 / -250 -125 / -125 20 / 20 Intake: IV Fluids 100 / 100 1000 / 1000 20 / 20 0.9 % Sodium Chloride 1,000 ML 1000 / 1000 @ 75 mls/hr IVC .[id number] [facility] Rx #:[id number] Maxipime 2,000 MG In Water for 20 / 20 inj. (sterile) 20 ML @ 300 mls/ hr IVP Q12HR [facility] Rx#:[id number] Ancef 2,000 MG In 0.9 % Sodium 100 / 100 Chloride 100 ML @ 200 mls/hr IVPB Q8HR [facility] Rx#:[id number] Oral 50 / 50 Output: Urine 400 / 400 1125 / 1125 Incision: clean and dry - Labs CBC & BMP: 09/03/18 05:38 09/03/18 05:38 Labs: Abnormal lab results Hgb 11.8 g/dL (12.9-16.9) L 09/03/18 05:38 Hct 37.4 % (37.5-50.1) L 09/03/18 05:38 MCV 78.1 fL (83.0-100.0) L 09/03/18 05:38 MCH 24.6 pg (28.0-33.3) L 09/03/18 05:38 RDW 15.9 % (11.5-14.5) H 09/03/18 05:38 MPV 9.2 fL (9.4-12.4) L 09/03/18 05:38 BUN 7 mg/dL (8-23) L 09/03/18 05:38 Creatinine 0.43 mg/dL (0.70-1.30) L 09/03/18 05:38 Glucose 172 mg/dL (70-105) H 09/03/18 05:38 Calcium 8.2 mg/dL (8.6-10.3) L 09/03/18 05:38 Total Bilirubin 0.2 mg/dL (0.3-1.0) L 09/03/18 05:38 Albumin 3.1 g/dL (3.5-5.7) L 09/03/18 05:38 Albumin/Globulin Ratio 0.9 (1.1-2.2) L 09/03/18 05:38 HDL Cholesterol 37 mg/dL (40-59) L 09/02/18 05:56 - VTE Documentation of Mechanical Device: Graduated compression elastic hosiery Consult Discharge Plan - Plan Referrals: Lala Gonzales, BANANA EXPERT [Primary Care Provider] -
[2018-09-04] MEDS: Ipratropium/Albuterol Neb 3 ML IH SCH ×3 (04:17→17:03)
[2018-09-04] MEDS: Cefepime HCl 2,000 MG in Water for inj. (sterile) 20 ML 20 ML IVP SCH ×2 (05:30→18:19)
[2018-09-04] MEDS: *HR* Enoxaparin 30 MG/0.3 ML SYRINGE SQ SCH ×2 (05:30→18:14)
[2018-09-04] MEDS: 0.9 % Sodium Chloride 1,000 ML IVC SCH ×2 (05:31→18:13)
[2018-09-04 06:26] LABS: Basophils # 0.1 K/mcL (0.0-0.2); Basophils % 0.6 %; Eosinophils # 0.1 K/mcL (0.0-0.6); Hematocrit 35.3 % (37.5-50.1); Hemoglobin 11.2 g/dL (12.9-16.9); Immature Granulocytes % 0.2 % (0-4); Lymphocytes # 1.4 K/mcL (0.6-4.6); Mean Corpuscular HGB Conc 31.7 g/dL (31.6-35.5); Mean Corpuscular Hemoglobin 25.1 pg (28.0-33.3); Mean Platelet Volume 9.7 fL (9.4-12.4); Monocytes # 0.7 K/mcL (0.0-1.3); Monocytes % 8.6 %; Platelet Count 292 K/mcL (140-400); Red Blood Count 4.47 M/mcL (4.19-5.50); Red Cell Distribution Width 15.9 % (11.5-14.5); Segmented Neutrophils % 72.6 %
[2018-09-04] MEDS: Magnesium Oxide 400 MG TABLET PO SCH ×2 (07:41→21:01)
[2018-09-04] MEDS: Multivit/Ca/Min/Fe/FA 1 TAB TABLET PO SCH (07:41)
[2018-09-04] MEDS: Cyanocobalamin (B-12) 1,000 MCG TABLET PO SCH (07:41)
[2018-09-04] MEDS: OXYCODONE Oral CONC 10 MG/0.5 ML ORAL.SYG SL PRN ×2 (07:42→15:47)
[2018-09-04 07:52] LABS: Alanine Aminotransferase 10 Units/L (7-52); Albumin/Globulin Ratio 0.9 (1.1-2.2); Alkaline Phosphatase 56 Units/L (34-104); Aspartate Amino Transferase 12 Units/L (13-39); BUN/Creatinine Ratio 18 (6-26); Bilirubin,Total 0.3 mg/dL (0.3-1.0); Blood Urea Nitrogen 9 mg/dL (8-23); Calcium 8.3 mg/dL (8.6-10.3); Carbon Dioxide 29 mEq/L (23-29); Chloride 104 mEq/L (98-107); Globulin 3.4 g/dL (2.4-3.5); Glucose 134 mg/dL (70-105); Osmolality,Calculated 283 (280-300); Potassium 3.7 mEq/L (3.5-5.1); Sodium 136 mEq/L (136-145); Total Protein 6.4 g/dL (6.4-8.9); eGFR For Non-African Americans > 60 (> 60)
--- NOTE | 2018-09-04 08:31 | Cardiothoracic Consult Note ---
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 The chest CT reveals a cavitary process involving the left chest with osseous deformity of the left fifth through eighth ribs. In order to eradicate this broncho-cutaneous fistula the patient would require excision of the remaining left lung and left chest wall, resulting a large tissue defect. There is inadequate surrounding tissue to cover this area. The patient's advanced COPD also precludes further lung resection. I do not believe that the patient is an operative candidate and would recommend conservative treatment with dressing changes. The assessment and plan as outlined above was discussed with the patient and/or family members who expressed understanding and agreement. All questions were answered. - History of Present Illness Consult date: 09/03/18 Requesting physician: Claudine Shields Consult reason: Left infrascapular broncho-cutaneous fistula Chief complaint: Chronic draining wound History of present illness: Mr. 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 The patient was diagnosed with poorly demonstrated squamous cell carcinoma involving the left lung in 2007. At that time he was deemed inoperable and underwent chemotherapy and radiation therapy. The chemotherapy continued until 2009 according to the patient. 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 The culture reveals multidrug resistant Pseudomonas aeruginosa. Last year for antibiotic therapy and has persistent drainage from this fistula. Recently, the patient suffered a fall after tripping on electrical cord. He injured his left hip and this revealed a left femoral neck fracture. He underwent percutaneous screw fixation of left hip fracture. During this hospitalization, infectious disease was reconsulted for the chronic left broncho-cutaneous fistula. I have been asked to evaluate the patient for possible operative intervention. Past Med Surg Social Fam HX - Past Medical History Medical history: cancer (Left lung poorly differentiated squamous cell carcinoma involving the chest wall), COPD, diabetes (Hyperglycemia, diet controlled), other Additional medical history: lung cancer Psychiatric history: no psych history - Past Surgical History Surgical History: cholecystectomy, orthopedic, other (Left femoral neck pinning 2) - Social History Smoking Status: Current every day smoker Packs per day: 1/2 - 1 PPD x 40 YRS Smokeless Tobacco Status: No Alcohol use: none Drug use: none Occupational status: retired Current living situation: Home - Independent Activity Level: Independent ambulation Recent Out of Country Travel Within the Last 8 Weeks: No Exposure or Possible Exposure to Illness During Travel: No - Family History Brother Race: Family Member Ethnicity: Non- Living Status: Age at : 72 Cause of : Lung cancer Hx Family Cancer: Yes (Lung) Father Race: Family Member Ethnicity: Non- Living Status: Age at : 72 Cause of : Blood clot Hx Family Cardiac Disorders: Yes (Blood clot) Mother Race: Family Member Ethnicity: Non- Living Status: Still Living Hx Family Cardiac Disorders: Yes (HTN) Sister Race: Family Member Ethnicity: Non- Living Status: Still Living Hx Family Medical Disorders: No Medications and Allergies Magnesium Oxide [Magnesium] 400 mg PO BID 09/06/15 [History] Multivitamin [Multivitamins] 1 tab PO DAILY 09/06/15 [History] Oxygen 2 l IH HS 09/06/15 [History] Cyanocobalamin (B-12) [Vitamin B12] 1,000 mcg PO DAILY #30 tablet 11/08/15 [Rx] Fluticasone/Salmeterol [Advair 500-50 Diskus] 1 puff IH BID 12/20/17 [History] Acetaminophen [Tylenol] 650 mg PO Q6HR PRN tablet 12/26/17 [Rx] Albuterol Sulfate [Proair Hfa] 2 puff IH Q4-6H PRN #1 inh 06/17/18 [Rx] Ascorbic Acid [Vitamin C] 500 mg PO DAILY 09/02/18 [History] Docusate [Colace] 100 mg PO BID 09/02/18 [History] FentaNYL PATCH [Duragesic] 100 mcg TD Q72H 09/02/18 [History] Gabapentin [Neurontin] 400 mg PO TID 09/02/18 [History] Ipratropium/Albuterol Neb [Duoneb] 3 ml IH Q6HR PRN 09/02/18 [History] Oxycodone HCl/Acetaminophen [Percocet 10-325 mg Tablet] 1 tab PO Q4H PRN 09/02/18 [History] Tamsulosin [Flomax] 0.4 mg PO DAILY 09/02/18 [History] Allergy/AdvReac Type Severity Reaction Status Date / Time No Known Allergies Allergy Verified 09/02/18 12:55 All Systems Review: The remainder of the systems were reviewed and are negative Physical Examination Vital Signs, Last 4 Hours Temp Pulse Resp BP Pulse Ox 09/04/18 06:00 97.5 F L 89 14 126/80 95 General: Conversant, No Apparent Distress HEENT: Atraumatic, Normocephaly, Trachea midline Neck: No JVD, Normal carotid pulses Cardiac: Reg Rate and Rhythm, Normal S1 and S2, No Murmur Lungs: Normal Breath Sounds (Right lung crum), Decreased breath sounds (Left lung crum), No Wheeze, Rales, Rhonchi Neuro: Alert and responsive, No focal deficits noted Vascular: Normal capillary refill Abdomen: Soft, Non-tender Skin: Other (Draining broncho-cutaneous fistula below the left scapula) Musculoskeletal: Other (Draining broncho-cutaneous fistula below the left scapula) Extremities: No Clubbing, No Cyanosis, No Edema Results 09/04/18 05:36 09/04/18 05:36 Lab Results, Last 24 hours 09/04/18 09/04/18 05:36 05:36 WBC 8.3 Hgb 11.2 L Hct 35.3 L Plt Count 292 Sodium 136 Potassium 3.7 Chloride 104 Carbon Dioxide 29 BUN 9 Creatinine 0.49 L Glucose 134 H Calcium 8.3 L Total Bilirubin 0.3 AST 12 L ALT 10 Alkaline Phosphatase 56 Consult Discharge Plan - Plan Referrals: Lala Gonzales, NARINDER [Primary Care Provider] -
--- NOTE | 2018-09-04 10:04 | Internal Med Progress Note ---
Hospitalist Progress Note - Encounter Date of Encounter: 09/04/18 Time of Encounter: 10:04 - Subjective Interval History: Patient seen and examined at bedside. Still with some back pain and minimal leg pain. No fever, chills, N/V/D. Wants to go home. - Exam Vitals: Temp Pulse Resp BP Pulse Ox 97.5 F L 89 14 126/80 95 09/04/18 06:00 09/04/18 06:00 09/04/18 06:00 09/04/18 06:00 09/04/18 06:00 Exam: General: In no acute distress. Conversant. thinly built Respiratory exam: Decreased air entry on left. no accessory muscle use, rales, rhonchi, wheezes. Crackles at Lt base. erythema, swelling and tenderness on Lt chest wall on back. Cardiovascular exam: RRR, +S1, +S2. no murmur, gallop, rubs. GI/Abdominal exam: Non-tender, Non-distended, normal bowel sounds, soft, no peritoneal signs. Extremities exam: no pedal edema, warm, pulses palpable in b/l lower extremities. no calf tenderness. Post opt wound on Lt thigh laterally. Neurological exam: CN II-XII intact, AO X3, no focal deficits. no pronater drift, facial droop, speech deficit Skin exam: cellulitic changes on back along with ulcer and surround erythema, swelling and discharge. Tenderness around. - Assessment and Plan (1) Lung cancer Current Visit: Yes Status: Chronic (2) Abscess of skin Current Visit: Yes Status: Chronic (3) Tobacco abuse Current Visit: Yes Status: Chronic (4) DVT prophylaxis Current Visit: Yes Status: Acute (5) Hip fracture Current Visit: Yes Status: Inactive (6) COPD (chronic obstructive pulmonary disease) Current Visit: Yes Status: Chronic (7) Tobacco abuse counseling Current Visit: Yes Status: Acute - Summary of Assessment and Plan Summary of Assessment and Plan: Hip fracture - s/p percutatenous scew fixation of Lt hip - Pain control with oxycodone and tramadol - PT/OT recommended HHPT if doing well and no falls Abscess/ulceration of skin - CT with cavitory lesion - Long standing skin infection with ulceration and bony destruction on back - Multiple antibiotic treatment for psuedomonas since last 5 montsh. - Cefazolin changed to cefepime. Wounds cultures not collected yet. Asked nurse to collect cultures. Wound care consulted. - CT surgeon recommendation appreciated. Not a surgical candidate. Will follow up ID recommendations. - incentive spiromentry. COPD - prn bronchodilators. - c/w home symbicort Lung cancer - poorly differentiated non-small cell of left lower chest wall since 2007. s/p chemo radiateion - to be followed outpatient - Oncology following. DVT prophylaxis - lovenox 30 q12 since - Time Spent with Patient Total time spent is greater than 50% in coordination of care (as documented) at patient's floor/unit and/or counseling patient: Internal Medicine: Result - Labs CBC & Chem 7: 09/04/18 05:36 09/04/18 05:36 Labs: Short CBC 09/04/18 Range/Units 05:36 WBC 8.3 (4.3-11.1) K/mcL Hgb 11.2 L (12.9-16.9) g/dL Hct 35.3 L (37.5-50.1) % Plt Count 292 (140-400) K/mcL Neutrophils # 6.0 (1.6-8.9) K/mcL BMP 09/04/18 05:36 Sodium 136 Potassium 3.7 Chloride 104 Carbon Dioxide 29 BUN 9 Creatinine 0.49 L Glucose 134 H Calcium 8.3 L Liver Function 09/04/18 Range/Units 05:36 Total Bilirubin 0.3 (0.3-1.0) mg/dL AST 12 L (13-39) Units/L ALT 10 (7-52) Units/L Alkaline Phosphatase 56 (34-104) Units/L Albumin 3.0 L (3.5-5.7) g/dL - VTE Documentation of Mechanical Device: Graduated compression elastic hosiery Consult Discharge Plan - Plan Referrals: Lala Gonzales, FAMILY DAY CARE PROVIDER [Primary Care Provider] - (1) Lung cancer Qualifiers: Laterality: left Lung location: lower lobe of lung Qualified Code(s): C34.32 - Malignant neoplasm of lower lobe, left bronchus or lung (2) Abscess of skin Qualifiers: Site of cutaneous abscess: trunk Site of cutaneous abscess of trunk: back Qualified Code(s): L02.212 - Cutaneous abscess of back [any part, except buttock] (5) Hip fracture Qualifiers: Encounter type: initial encounter Fracture type: closed Laterality: left Qualified Code(s): S72.002A - Fracture of unspecified part of neck of left femur, initial encounter for closed fracture (6) COPD (chronic obstructive pulmonary disease) Qualifiers: COPD type: unspecified COPD Qualified Code(s): J44.9 - Chronic obstructive pulmonary disease, unspecified
--- NOTE | 2018-09-04 10:52 | Oncology Inp Progress Note ---
<UrielRashaun Jannette - Last Filed: 09/04/18 11:56> Date of Encounter: 09/04/18 Time of Encounter: 10:00 (1) Radiation necrosis of skin and subcutaneous Current Visit: Yes Status: Acute Assessment and plan: Chronic draining abscess of the left infrascapular region, believed to be related to prior radiation therapy -Previously evaluated by CT surgery and patient not considered to be a surgical candidate. -Follows with Dr Nieves with [facility] and Dr. Lieberman with wound care, last saw Dr. Nieves on 08/23 -Wound remains positive by culture for Pseudomonas -Currently on antibiotic treatment break, was supposed to return [facility] on 09/03 for PICC and abx restart with cefepime 2 g for 28 days. -Does not appear to be acutely ill from infection Plan: -Infectious diseases consulted, appreciate their recommendations. Have started Cefepime 2 g daily while awaiting wound culture and sensitivity results, however antibiotics alone are unlikely to be effective without surgery for adequate source control. -CT surgery consulted this visit as well, believe that patient is still not a surgical candidate due to poor respiratory reserve and extensiveness of surgery that would be required to adequately clear infected tissue. Recommend conservative management with routine wound care. -Will plan for CT guided biopsy and culture of cavitary lung lesion and periaortic lymph node. -Will consult pulmonology for additional recommendations with broncho-cutaneous fistula and cavitary lung lesion -Continue routine wound care (2) Pseudomonas infection Current Visit: No Status: Chronic Assessment and plan: Abscess of left infrascapular region, persistently positive for pseudomonas aeruginosa -Last culture 08/05/18, sensitive to Cefepime, Gentamicin, Tobramycin Plan: Treatment of wound as above (3) Lung cancer Current Visit: Yes Status: Chronic Assessment and plan: Oncology History: Stage III T4 N1 M0 poorly differentiated lung cancer, [id number], with extension to left lower chest wall, diagnosis February 2008. Size 5 x 5.4 cm, squamous cell, poorly differentiated carcinoma. -Completed concurrent chemoradiation with Navelbine, cetuximab. Not currently on treatment -Follows with Dr. Nieves, last seen 08/23/2018 -CT Chest 08/19/2018, stable disease burden, no new lymphadenopathy or tumor extension. Plan: Continue outpatient follow up as planned with Dr. Nieves. Qualifiers: Laterality: left Lung location: lower lobe of lung Qualified Code(s): C34.32 - Malignant neoplasm of lower lobe, left bronchus or lung (4) Hip fracture Current Visit: Yes Status: Inactive Assessment and plan: Acute Left subcapital hip fracture Plan: Post operative day 2 from percutaneous screw fixation of left hip fracture with orthopedic surgery. Management per ortho Qualifiers: Encounter type: initial encounter Fracture type: closed Laterality: left Qualified Code(s): S72.002A - Fracture of unspecified part of neck of left femur, initial encounter for closed fracture Oncology: Subj Interval history: Patient was seen and evaluated at the bedside. Reports that he has been ambulating with the assistance of a walker since his hip surgery. No new comp laints. Pain from back wound and hip fracture are stable and well controlled with medication. Denies nausea, vomiting, change in bowel habits, fever, chills, shortness of breath, or chest pain. - Constitutional Vitals: Vital Signs Temp Pulse Resp BP Pulse Ox 09/04/18 06:00 97.5 F L 89 14 126/80 95 09/04/18 04:17 18 98 09/04/18 03:52 98.9 F 85 18 126/78 98 09/04/18 00:05 98.3 F 89 16 127/68 96 09/03/18 21:48 18 95 09/03/18 18:29 98.8 F 90 16 127/68 95 09/03/18 14:39 97.9 F 83 16 118/67 95 Intake and Output 09/03/18 09/04/18 09/04/18 23:59 07:59 15:59 Intake Total 20 1200 / 1200 Output Total 300 / 300 750 / 750 Balance -280 / -280 450 / 450 Intake: IV Fluids 20 / 20 1000 / 1000 0.9 % Sodium Chloride 1,000 ML 1000 / 1000 @ 75 mls/hr IVC .[id number] [facility] Rx #:[id number] Maxipime 2,000 MG In Water for 20 / 20 inj. (sterile) 20 ML @ 300 mls/ hr IVP Q12HR [facility] Rx#:[id number] Oral 200 / 200 Output: Urine 300 / 300 750 / 750 Other: # Voids 2 Exam: Mildly cachectic male seated comfortably in bed, no acute distress - Head Head exam: Present: atraumatic, normocephalic - Eye Eye exam: Present: PERRL, conjuntiva pink - ENT ENT exam: Present: mucous membranes moist - Neck Neck exam: Absent: lymphadenopathy, tenderness - Respiratory Respiratory exam: Present: CTAB. Absent: accessory muscle use - Cardiovascular Cardiovascular exam: Present: RRR, +S1, +S2. Absent: diastolic murmur, systolic murmur - GI/Abdominal GI/Abdominal exam: Present: normal bowel sounds, soft. Absent: distended, rigid - Extremities Exam Extremities exam: Present: normal inspection. Absent: joint swelling, pedal edema - Back Exam Additional comments: Chronic wound of the left infrascapular region. Clean and dry dressing is in place. Wound appears unchanged with visible purulent drainage and mild s urrounding erythema. - Neurological Exam Neurological exam: Present: alert, CN II-XII intact, oriented X3, no focal deficits - Psychiatric Psychiatric exam: Present: normal affect, normal mood - Skin Skin exam: Present: dry Oncology: Obj Data - Labs CBC & Chem 7: 09/04/18 05:36 09/04/18 05:36 Labs: Laboratory Results - last 24 hr 09/04/18 09/04/18 05:36 05:36 WBC 8.3 RBC 4.47 Hgb 11.2 L Hct 35.3 L MCV 79.0 L MCH 25.1 L MCHC 31.7 RDW 15.9 H Plt Count 292 MPV 9.7 Immature Gran % 0.2 Seg Neutrophils % 72.6 Lymphocytes % 17.0 Monocytes % 8.6 Eosinophils % 1.0 Basophils % 0.6 Neutrophils # 6.0 Lymphocytes # 1.4 Monocytes # 0.7 Eosinophils # 0.1 Basophils # 0.1 Sodium 136 Potassium 3.7 Chloride 104 Carbon Dioxide 29 BUN 9 Creatinine 0.49 L Est GFR ( Amer) > 60 Est GFR (Non-Af Amer) > 60 BUN/Creatinine Ratio 18 Glucose 134 H Calculated Osmolality 283 Calcium 8.3 L Total Bilirubin 0.3 AST 12 L ALT 10 Alkaline Phosphatase 56 Serum Total Protein 6.4 Albumin 3.0 L Globulin 3.4 Albumin/Globulin Ratio 0.9 L Consult Discharge Plan - Plan Referrals: Lala Gonzales, CREW CHIEF [Primary Care Provider] - <Gael Erickson - Last Filed: 09/04/18 17:36> Date of Encounter: 09/04/18 - Constitutional Vitals: Vital Signs Temp Pulse Resp BP Pulse Ox 09/04/18 16:17 97.5 F L 91 16 114/72 98 09/04/18 12:09 98.1 F 79 16 126/74 99 09/04/18 06:00 97.5 F L 89 14 126/80 95 09/04/18 04:17 18 98 09/04/18 03:52 98.9 F 85 18 126/78 98 09/04/18 00:05 98.3 F 89 16 127/68 96 09/03/18 21:48 18 95 09/03/18 18:29 98.8 F 90 16 127/68 95 Intake and Output 09/04/18 09/04/18 09/05/18 08:59 16:59 00:59 Intake Total 1000 / 1000 Output Total 750 / 750 350 / 350 Balance 250 / 250 -350 / -350 Intake: IV Fluids 1000 / 1000 0.9 % Sodium Chloride 1,000 ML 1000 / 1000 @ 75 mls/hr IVC .[id number] [facility] Rx #:[id number] Output: Urine 750 / 750 350 / 350 Other: Stool Size Moderate Stool Consistency loose Stool Color Brown # Voids 2 1 # Bowel Movements 1 Oncology: Obj Data - Labs CBC & Chem 7: 09/04/18 05:36 09/04/18 05:36 Labs: Laboratory Results - last 24 hr 09/04/18 09/04/18 09/04/18 05:36 05:36 11:54 WBC 8.3 RBC 4.47 Hgb 11.2 L Hct 35.3 L MCV 79.0 L MCH 25.1 L MCHC 31.7 RDW 15.9 H Plt Count 292 MPV 9.7 Immature Gran % 0.2 Seg Neutrophils % 72.6 Lymphocytes % 17.0 Monocytes % 8.6 Eosinophils % 1.0 Basophils % 0.6 Neutrophils # 6.0 Lymphocytes # 1.4 Monocytes # 0.7 Eosinophils # 0.1 Basophils # 0.1 PT 15.2 H INR 1.4 APTT 37.0 H Sodium 136 Potassium 3.7 Chloride 104 Carbon Dioxide 29 BUN 9 Creatinine 0.49 L Est GFR ( Amer) > 60 Est GFR (Non-Af Amer) > 60 BUN/Creatinine Ratio 18 Glucose 134 H Calculated Osmolality 283 Calcium 8.3 L Total Bilirubin 0.3 AST 12 L ALT 10 Alkaline Phosphatase 56 Serum Total Protein 6.4 Albumin 3.0 L Globulin 3.4 Albumin/Globulin Ratio 0.9 L - ABG Interpretation ABG results: PT/INR, D-dimer PT 15.2 Seconds (9.4-12.1) H 09/04/18 11:54 Inpatient Charges Provider: Dr. Joellen Erickson Follow up - Inpatient: [id number] - Attending Attestation I examined this patient and my medical decision-making was reviewed with the Advanced Practice Nurse. I agree with the documented findings, disposition and treatment plan as described except to the extent set forth below. Pulm and ID c/s, appreciate recommendations. Will rebiopsy lung mass.
[2018-09-04] MEDS: Budesonide/Formoterol 160/4.5 1 PUFF INH IH SCH ×2 (11:32→20:12)
--- NOTE | 2018-09-04 11:44 | Infectious Disease Progress No ---
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 This is likely a source control issue. It is highly unlikely that the infection will clear and the wound will heal without adequate source control and surgical debridement of the wound. Giving prolonged IV antibiotics without adequate source control will likely lead to further development of drug-resistant strains of bacteria. Currently on cefepime. Most recent susceptibilities show sensitivity to Cefepime, although it is highly unlikely that it is truly susceptible. Recommendations: - Repeat wound cultures. Ordered yesterday, but not collected. Discussed with nursing. - Consult wound care for dressing changes. - If repeat wound culture positive for PSEA, will need to send for Avycaz, C olistin, and Zerbaxa susceptibilities. - Continue Cefepime 2 grams IV Q12H until wound culture is back. - Duration of treatment depends on the clinical picture. - Monitor renal function and dose-adjust antibiotics. - Patient would benefit from transfer to a tertiary care center for evaluation by plastic surgery in order to maximize outcomes and have any chance of eradicating this infection. Discussed with Dr. Shields. (2) Radiation necrosis of skin and subcutaneous Current Visit: Yes Status: Acute Location: Left infrascapular area. Dressing changes per the wound care team. (3) Lung mass Current Visit: No Status: Chronic CT of the chest 08/19/18 showed large cavitary lung mass over the left lung. Not sure if this is cancer vs. abscess vs. other. Previous biopsy was negative for malignancy. Consider pulmonary to evaluate. Discussed with the hematology oncology team who is going to send the patient for biopsy today. Please send specimen for culture (aerobic, anaerobic, AFB, and fungal) and pathology. (4) History of treatment for malignancy Current Visit: No Status: Acute Diagnosed with non-small cell lung cancer in 2007. Previously treated with chemo and radiation. Not currently on treatment. Hem/Onc consulted and following. (5) Tobacco abuse Current Visit: Yes Status: Chronic (6) COPD (chronic obstructive pulmonary disease) Current Visit: Yes Status: Chronic Qualifiers: COPD type: unspecified COPD Qualified Code(s): J44.9 - Chronic obstructive pulmonary disease, unspecified - Subjective Interval history: Patient seen and examined. No acute events noted overnight. Patient states overall he feels okay today. Reports chronic back pain. Reports minimal pain in the surgical site. Does report some pain at the site of his chronic ulceration to his left upper back. Denies any fevers or chills or rigors. Denies any chest pain, shortness of breath, or cough. He denies any nausea, vomiting, diarrhea, or constipation. Reports last vomiting was yesterday. Denies abdominal pain or urinary complaints. Denies any oral thrush or any skin lesions. Infect Dis PN-Objective Data - Labs CBC & Chem 7: 09/04/18 05:36 09/04/18 05:36 Labs: Laboratory Results - last 24 hr 09/04/18 09/04/18 05:36 05:36 WBC 8.3 RBC 4.47 Hgb 11.2 L Hct 35.3 L MCV 79.0 L MCH 25.1 L MCHC 31.7 RDW 15.9 H Plt Count 292 MPV 9.7 Immature Gran % 0.2 Seg Neutrophils % 72.6 Lymphocytes % 17.0 Monocytes % 8.6 Eosinophils % 1.0 Basophils % 0.6 Neutrophils # 6.0 Lymphocytes # 1.4 Monocytes # 0.7 Eosinophils # 0.1 Basophils # 0.1 Sodium 136 Potassium 3.7 Chloride 104 Carbon Dioxide 29 BUN 9 Creatinine 0.49 L Est GFR ( Amer) > 60 Est GFR (Non-Af Amer) > 60 BUN/Creatinine Ratio 18 Glucose 134 H Calculated Osmolality 283 Calcium 8.3 L Total Bilirubin 0.3 AST 12 L ALT 10 Alkaline Phosphatase 56 Serum Total Protein 6.4 Albumin 3.0 L Globulin 3.4 Albumin/Globulin Ratio 0.9 L Exam - Constitutional Vitals: Temp Pulse Resp BP Pulse Ox 97.5 F L 89 14 126/80 95 09/04/18 06:00 09/04/18 06:00 09/04/18 06:00 09/04/18 06:00 09/04/18 06:00 General appearance: average body habitus, cooperative, no acute distress - Head Head exam: Present: atraumatic, normal inspection, normocephalic - Eye Eye exam: Present: EOMI, normal appearance, PERRL Pupils: Present: normal accommodation - ENT ENT exam: Present: mucous membranes moist - Neck Neck exam: Present: normal inspection - Respiratory Respiratory exam: Present: CTAB. Absent: rales, respiratory distress, rhonchi, wheezes - Cardiovascular Cardiovascular exam: Present: RRR, +S1, +S2 - GI/Abdominal GI/Abdominal exam: Present: normal bowel sounds, soft. Absent: distended, tenderness - Extremities Exam Extremities exam: Absent: normal inspection (Left lateral thigh surgical site with honeycomb dressing clean, dry, and intact. Mild tenderness noted with palpation. No surrounding erythema or wound drainage.), pedal edema - Back Exam Additional comments: Dressing to the left upper back is clean, dry, and intact. - Neurological Exam Neurological exam: Present: alert, oriented X3, no focal deficits - Psychiatric Psychiatric exam: Present: normal affect, normal mood - Skin Skin exam: Present: dry, intact, normal color, warm - VTE Documentation of Mechanical Device: Graduated compression elastic hosiery Consult Discharge Plan - Plan Referrals: Lala Gonzales, STICKER OPERATOR [Primary Care Provider] - - Attending Attestation I examined this patient and my medical decision-making was reviewed with the Resident Physician. I agree with the documented findings, disposition and treatment plan as described except to the extent set forth below.
[2018-09-04 12:26] LABS: INR 1.4; Prothrombin Time 15.2 Seconds (9.4-12.1)
--- NOTE | 2018-09-04 15:09 | Pulmonology Consult Note ---
<Karsten Bell W - Last Filed: 09/04/18 16:58> Date of Encounter: 09/04/18 Medications and Allergies Magnesium Oxide [Magnesium] 400 mg PO BID 09/06/15 [History] Multivitamin [Multivitamins] 1 tab PO DAILY 09/06/15 [History] Oxygen 2 l IH HS 09/06/15 [History] Cyanocobalamin (B-12) [Vitamin B12] 1,000 mcg PO DAILY #30 tablet 11/08/15 [Rx] Fluticasone/Salmeterol [Advair 500-50 Diskus] 1 puff IH BID 12/20/17 [History] Acetaminophen [Tylenol] 650 mg PO Q6HR PRN tablet 12/26/17 [Rx] Albuterol Sulfate [Proair Hfa] 2 puff IH Q4-6H PRN #1 inh 06/17/18 [Rx] Ascorbic Acid [Vitamin C] 500 mg PO DAILY 09/02/18 [History] Docusate [Colace] 100 mg PO BID 09/02/18 [History] FentaNYL PATCH [Duragesic] 100 mcg TD Q72H 09/02/18 [History] Gabapentin [Neurontin] 400 mg PO TID 09/02/18 [History] Ipratropium/Albuterol Neb [Duoneb] 3 ml IH Q6HR PRN 09/02/18 [History] Oxycodone HCl/Acetaminophen [Percocet 10-325 mg Tablet] 1 tab PO Q4H PRN 09/02/18 [History] Tamsulosin [Flomax] 0.4 mg PO DAILY 09/02/18 [History] Allergy/AdvReac Type Severity Reaction Status Date / Time No Known Allergies Allergy Verified 09/02/18 12:55 All Systems: The remainder of the systems were reviewed and are negative Physical Examination Vital Signs: Vital Signs, Last 4 Hours Temp Pulse Resp BP Pulse Ox 09/04/18 16:17 97.5 F L 91 16 114/72 98 Results - Laboratory Findings CBC and BMP: 09/04/18 05:36 09/04/18 05:36 PT/INR, D-dimer PT 15.2 Seconds (9.4-12.1) H 09/04/18 11:54 Abnormal lab findings: Abnormal lab results Hgb 11.2 g/dL (12.9-16.9) L 09/04/18 05:36 Hct 35.3 % (37.5-50.1) L 09/04/18 05:36 MCV 79.0 fL (83.0-100.0) L 09/04/18 05:36 MCH 25.1 pg (28.0-33.3) L 09/04/18 05:36 RDW 15.9 % (11.5-14.5) H 09/04/18 05:36 PT 15.2 Seconds (9.4-12.1) H 09/04/18 11:54 APTT 37.0 Seconds (26.0-36.0) H 09/04/18 11:54 Creatinine 0.49 mg/dL (0.70-1.30) L 09/04/18 05:36 Glucose 134 mg/dL (70-105) H 09/04/18 05:36 Calcium 8.3 mg/dL (8.6-10.3) L 09/04/18 05:36 AST 12 Units/L (13-39) L 09/04/18 05:36 Albumin 3.0 g/dL (3.5-5.7) L 09/04/18 05:36 Albumin/Globulin Ratio 0.9 (1.1-2.2) L 09/04/18 05:36 HDL Cholesterol 37 mg/dL (40-59) L 09/02/18 05:56 - Clinical Findings Intake & Output: Intake & Output 09/04/18 09/04/18 09/04/18 07:59 15:59 23:59 Intake Total 1200 / 1200 Output Total 750 / 750 150 / 150 200 / 200 Balance 450 / 450 -150 / -150 -200 / -200 Consult Discharge Plan - Plan Referrals: Lala Gonzales, TECHNICAL SUPPORT ASSISTANT [Primary Care Provider] - - Attending Attestation I examined this patient and my medical decision-making was reviewed with the Resident Physician. I agree with the documented findings, disposition and treatment plan as described except to the extent set forth below. We independently had [id number] contact with the patient Patient seen and examined at bedside Labs, radiology, chart personally reviewed. Impression: * Chest Wall Infection * MDRO PSDA * NSCLC * COPD * Tobacco Abuse Recs: -I reviewed the CT images extensively and discussed with infectious disease I felt that the likelihood of resolving this infection without surgery is very low. I appreciate CT surgery evaluation of this patient and clearly he would not clinically tolerate a major chest wall resection however partial surgical resection/evaluation by plastic surgery could be entertained. Otherwise persistent infection with pseudomonas with further resistant organisms is anticipated and essentially this would be considered a terminal infection. I also of expressed my concern for possible coinfection with actinomycoses given extensive chest wall invasion and destruction. I will defer to infectious disease service for further antimicrobial recommendations. -There is no clear radiographic evidence of the cancer did disease progression at this time he is following with [facility] for this -COPD without evidence of COPD exacerbation his current regimen of Symbicort 160/4.52 puffs twice a day and DuoNeb scheduled every 6 hours is appropriate -I reinforced the need for abstinence from tobacco No further recommendations from pulmonary at this time please feel free to call with any questions we appreciate this consultation <Shaniqua Shah - Last Filed: 09/04/18 21:33> Date of Encounter: 09/04/18 Time of Encounter: 15:07 Assessment and Plan (1) Radiation necrosis of skin and subcutaneous Current Visit: Yes Status: Acute - Follows with wound care and oncology for tumor and necrosis - Per oncology, wound has persistent pseudomonas infection - Wound cultures have been ordered, ID is following. Cefepime ordered. - CT obtained on 08/19/18 showing large cavitary mass centered over the left lung with destruction of posterior chest wall and ulceration. Unchanged from previous exam - Diffuse emphysematous changes seen as well without acute abnormality -- There is no definite progression of cancer based on CT findings. The chest wall infection we feel is unlikely to resolve without surgery and as he is likely to have poor outcomes following surgery this is likely a terminal infection. ID is following and we did discuss this together. We can attempt to optimize and/or preserve his remaining lung function and strongly encouraged tobacco cessation with optimization of inhalers for his COPD but it does not appear to be in acute exacerbation at this time. 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 (3) COPD (chronic obstructive pulmonary disease) Current Visit: Yes Status: Chronic Does not appear to be in acute exacerbation - Continue home inhalers. Qualifiers: COPD type: unspecified COPD Qualified Code(s): J44.9 - Chronic obstructive pulmonary disease, unspecified (4) Tobacco abuse Current Visit: Yes Status: Chronic - Strongly encouraged cessation to preserve remaining lung function. (5) Lung cancer Current Visit: Yes Status: Chronic As above Qualifiers: Laterality: left Lung location: lower lobe of lung Qualified Code(s): C34.32 - Malignant neoplasm of lower lobe, left bronchus or lung History of Present Illness Consult date: 09/04/18 Reason for consult: other (cavitary lung lesion, chronic wound infection) Chief complaint: Fall History of present illness: Mr. 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 He originally was seen at [facility] for complaints of left hip pain after what seems to be a mechanical fall--no head trauma, loss of consciousness. Before falling he was not lightheaded or short of breath. He denied fever, chills, chest pain or chest pressure, productive cough, nausea, vomiting, and abdominal pain. He also complained of left-sided back pain located left infrascapular region extending anteriorly--this is a chronic draining abscess that is persistently positive for pseudomonas aeruginosa. He sees wound care and oncology for management. At this time he is on a break from antibiotic treatment. Disease burden in this area stable based on recent CT chest. According to patient there is been no change in wound size or drainage. He has no complaints today. He follows with Dr. Nieves of oncology and was last seen 08/23/18. He is a current smoker, reports smoking 1-2 packs per day 50 years. Patient reports he picked his smoking back up about 1 year ago. He is not followed by a nutrition services assistant. Home meds for his COPD include DuoNeb's, fluticasone/salmeterol inhaler, and albuterol inhaler all of which he reports using. Previous occupational exposure secondary to his work at an [employer] shop. Past history of heavy alcohol use, but stopped drinking 6 months ago. Past Med Surg Social Fam HX - Past Medical History Medical history: cancer (Left lung poorly differentiated squamous cell carcinoma involving the chest wall), COPD, diabetes (Hyperglycemia, diet controlled), other Additional medical history: lung cancer Psychiatric history: no psych history - Past Surgical History Surgical History: cholecystectomy, orthopedic, other (Left femoral neck pinning 2) - Social History Smoking Status: Current every day smoker Packs per day: 1/2 - 1 PPD x 40 YRS Smokeless Tobacco Status: No Alcohol use: none Drug use: none - Family History Brother Race: Family Member Ethnicity: Non- Living Status: Age at : 72 Cause of : Lung cancer Hx Family Cancer: Yes (Lung) Father Race: Family Member Ethnicity: Non- Living Status: Age at : 72 Cause of : Blood clot Hx Family Cardiac Disorders: Yes (Blood clot) Mother Race: Family Member Ethnicity: Non- Living Status: Still Living Hx Family Cardiac Disorders: Yes (HTN) Sister Race: Family Member Ethnicity: Non- Living Status: Still Living Hx Family Medical Disorders: No All Systems: The remainder of the systems were reviewed and are negative - Constitutional Constitutional: weight loss, no chills, no fever(s) - Cardiovascular Cardiovascular: no chest pain, no palpitations - Respiratory Respiratory: cough (at baseline), no dyspnea, no hemoptysis, no dyspnea on exertion, no pain with cough - Gastrointestinal Gastrointestinal: no abdominal pain, no diarrhea, no nausea, no vomiting - Genitourinary Genitourinary: no dysuria - Integumentary Integumentary: other (chronic chest wall draining wound) Physical Examination Vital Signs: Vital Signs, Last 4 Hours Temp Pulse Resp BP Pulse Ox 09/04/18 12:09 98.1 F 79 16 126/74 99 General appearance: no acute distress, alert Eyes: nonicteric ENT: oropharynx moist Effort: normal Inspection: normal, other (chest wall wound, dressed with clean dry intact ) Auscultation: bilateral: clear, diminished breath sounds (L>R) Cardiovascular: regular rate and rhythm Gastrointestinal: soft, non-tender, non-distended Integumentary: normal, other Extremities: no cyanosis, no edema, pink and warm, pulses normal Musculoskeletal: other normal mental status, non-focal exam, pupils equal and round, CN II-XII normal mood appropriate, affect normal Results - Laboratory Findings CBC and BMP: 09/04/18 05:36 09/04/18 05:36 PT/INR, D-dimer PT 15.2 Seconds (9.4-12.1) H 09/04/18 11:54 Abnormal lab findings: Abnormal lab results Hgb 11.2 g/dL (12.9-16.9) L 09/04/18 05:36 Hct 35.3 % (37.5-50.1) L 09/04/18 05:36 MCV 79.0 fL (83.0-100.0) L 09/04/18 05:36 MCH 25.1 pg (28.0-33.3) L 09/04/18 05:36 RDW 15.9 % (11.5-14.5) H 09/04/18 05:36 PT 15.2 Seconds (9.4-12.1) H 09/04/18 11:54 APTT 37.0 Seconds (26.0-36.0) H 09/04/18 11:54 Creatinine 0.49 mg/dL (0.70-1.30) L 09/04/18 05:36 Glucose 134 mg/dL (70-105) H 09/04/18 05:36 Calcium 8.3 mg/dL (8.6-10.3) L 09/04/18 05:36 AST 12 Units/L (13-39) L 09/04/18 05:36 Albumin 3.0 g/dL (3.5-5.7) L 09/04/18 05:36 Albumin/Globulin Ratio 0.9 (1.1-2.2) L 09/04/18 05:36 HDL Cholesterol 37 mg/dL (40-59) L 09/02/18 05:56 - Clinical Findings Intake & Output: Intake & Output 09/03/18 09/04/18 09/04/18 23:59 07:59 15:59 Intake Total 1200 / 1200 Output Total 300 / 300 750 / 750 150 / 150 Balance -280 / -280 450 / 450 -150 / -150
[2018-09-04] MEDS ORDERED: Ipratropium/Albuterol Neb 3 ML IH PRN (18:48)
[2018-09-04 21:01] VITALS: BP 134/73
[2018-09-04] MEDS: traMADol 50 MG TABLET PO PRN (21:16)
[2018-09-04] MEDS ORDERED: *HR* FentaNYL PATCH 100 MCG PATCH TD SCH (23:30)
--- NOTE | 2018-09-05 15:56 | Discharge Summary ---
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 Orders not resulted at time of discharge: Pending orders 09/02/18 21:50 XR hip complete LT [XR] Routine 09/03/18 14:28 Culture,Anaerobic [RM] Stat Culture,Wound [RM] Stat 09/04/18 11:05 Surgical Pathology [PTH] Routine 09/04/18 13:52 Fungal Culture [MYC] Routine Date of Encounter: 09/05/18 Time of Encounter: 08:00 - Discharge Diagnosis (1) Lung cancer Priority: Secondary Status: Chronic Qualifiers: Laterality: left Lung location: lower lobe of lung Qualified Code(s): C34.32 - Malignant neoplasm of lower lobe, left bronchus or lung (2) Abscess of skin Priority: Primary Status: Chronic Qualifiers: Site of cutaneous abscess: trunk Site of cutaneous abscess of trunk: back Qualified Code(s): L02.212 - Cutaneous abscess of back [any part, except b uttock] (3) Tobacco abuse Priority: Secondary Status: Chronic (4) DVT prophylaxis Priority: Secondary Status: Acute (5) Hip fracture Priority: Primary Status: Inactive Qualifiers: Encounter type: initial encounter Fracture type: closed Laterality: left Qualified Code(s): S72.002A - Fracture of unspecified part of neck of left femur, initial encounter for closed fracture (6) COPD (chronic obstructive pulmonary disease) Priority: Secondary Status: Chronic Qualifiers: COPD type: unspecified COPD Qualified Code(s): J44.9 - Chronic obstructive pulmonary disease, unspecified (7) Tobacco abuse counseling Priority: Secondary Status: Acute (8) Bronchocutaneous fistula Priority: Primary Status: Acute Hospital course: Mr. Donis is a 68 year old male past medical history of lung cancer, COPD who was transferred from [facility] after left hip pain after a fall when he was found to have left femoral neck fracture. Patient also had acute on chronic enlarged abscess in the left infrascapular. Oncology as well as orthopedist were consulted initially. Patient had percutaneous screw fixation of left hip which he tolerated well without any complication. For the patient's chronic draining abscesses in the left intrascapular region infectious disease was following. 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 Patient previously had several rounds of IV antibiotics for Pseudomonas which she was receiving at [place] [facility]. Patient's wound cultures remained positive for pseudomonas before. Last one growing Pseudomonas MDR oh on is sensitive to cef epime and gentamicin and tobramycin. Patient was started on cefepime during this hospitalization. CT recently had a CAT scan which showed large cavitary mass on the left and emphysematous changes. CT surgery was obtained for further management. 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 Given patient's advanced COPD patient was deemed to be poor candidate as he would need excision of remaining left lung. However without proper source control patient would likely fail IV antibiotic treatment as well. Is not discussion with infectious disease, oncology and pulmonology it was decided that patient would be best to manage her to tertiary care hospital with the help of plastic surgeon to achieve some source control. Patient was discharged early this morning. - Time Spent with Patient Total time spent providing and/or coordinating discharge services: - Discharge Medications Home Medications: Magnesium Oxide [Magnesium] 400 mg PO BID 09/06/15 [History] Multivitamin [Multivitamins] 1 tab PO DAILY 09/06/15 [History] Oxygen 2 l IH HS 09/06/15 [History] Cyanocobalamin (B-12) [Vitamin B12] 1,000 mcg PO DAILY #30 tablet 11/08/15 [Rx] Fluticasone/Salmeterol [Advair 500-50 Diskus] 1 puff IH BID 12/20/17 [History] Acetaminophen [Tylenol] 650 mg PO Q6HR PRN tablet 12/26/17 [Rx] Albuterol Sulfate [Proair Hfa] 2 puff IH Q4-6H PRN #1 inh 06/17/18 [Rx] Ascorbic Acid [Vitamin C] 500 mg PO DAILY 09/02/18 [History] Docusate [Colace] 100 mg PO BID 09/02/18 [History] FentaNYL PATCH [Duragesic] 100 mcg TD Q72H 09/02/18 [History] Gabapentin [Neurontin] 400 mg PO TID 09/02/18 [History] Ipratropium/Albuterol Neb [Duoneb] 3 ml IH Q6HR PRN 09/02/18 [History] Oxycodone HCl/Acetaminophen [Percocet 10-325 mg Tablet] 1 tab PO Q4H PRN 09/02/18 [History] Tamsulosin [Flomax] 0.4 mg PO DAILY 09/02/18 [History] Allergies/Adverse Reactions: Allergy/AdvReac Type Severity Reaction Status Date / Time No Known Allergies Allergy Verified 09/02/18 12:55 Date of admission: 09/04/18 11:34 Primary care physician: Lala Gonzales CNP Consults: 09/01/18 23:30 Consult to Geriatric Personal Care Aide [CONS] Routine Reason for SW Consult: Please assess patient for possible home needs for p ost-discharge planning. 09/01/18 23:31 Consult to Occupational Therapy [CONS] Routine Comment: Evaluate, develop and implement POC Reason for Consult: Patient will need assessed for possible rehabilitation needs post-surgery for left hip fx. Does patient have active BEDREST order?: Yes Is patient medically & hemodynamically stable?: Yes Patient assessed for mobility or mobilized this visit?: No 09/01/18 23:32 Consult to Physical Therapy [CONS] Routine Comment: Evaluate, develop and implement POC Reason for Consult: Patient will need assessed for possible rehabilitation needs post-surgery for left hip fx. Does patient have active BEDREST order?: Yes Is patient medically & hemodynamically stable?: Yes Patient assessed for mobility or mobilized this visit?: No 09/01/18 23:34 Consult to Nutrition [CONS] Routine Comment: CHOCOLATE Consulting Provider: NUTRITION Reason for Dietary Consult: PO Supplementation 09/01/18 23:46 Consult to Oncology [CONS] Routine Consulting Provider: [facility] [place] Reason for Consult: Patient reports hx of lung cancer and states that is sees Dr. Nieves. He also states that he has an infection of the lung that comes out his back and is seen at [facility] to have dressings changed and is due to have them changed this week. 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 Needs source control for wound. Call Completed: Yes 09/04/18 11:05 Consult to Interventional Radiology [CONS] Routine Consulting Provider: Radiology Interventional [facility] Reason for Consult: upper abdominal LN biopsy AND cavitary lung lesion bx---ID will be entering cultures for lung bx---surgical pathology order entered Call Completed: Yes 09/04/18 11:37 Consult to Pulmonology [CONS] Routine Consulting Provider: [facility] [place] Reason for Consult: Chronic wound infection and cavitary lung lesion, lung cancer history Call Completed: Yes Discharging clinician: Claudine Jackson Constitutional Vitals: Temp Pulse Resp BP Pulse Ox 98.4 F 93 16 134/73 97 09/04/18 20:57 09/04/18 20:57 09/04/18 20:57 09/04/18 20:57 09/04/18 20:57 General appearance: Present: cooperative, mild distress (Left hip pain and pain in back), A&O X 3, pleasant, underweight (Reports he used to weigh 160 lbs and now weighs 125 lbs), answers questions appropriately Exam: na - Patient Status Disposition: Transfer Other Condition: Good - Discharge Instructions Follow Up With: Lala Gonzales, [employer] [Primary Care Provider] - - VTE Documentation of Mechanical Device: Graduated compression elastic hosiery
== END 2018-09-05 01:33 | disposition other institution (70) | DRG 480 ==
LOC: 3NENU → SUATTDRO 23:25 → 2ANU 09-04 11:30
PROVIDERS: ADMIT Internal Medicine; ATTEND Internal Medicine

== ENCOUNTER 2020-05-05 16:34 | Observation (INO) ==
[2020-05-05] MEDS ORDERED: Aminoglycoside Consult 1 EACH MC ONE (18:00)
[2020-05-05] MEDS ORDERED: *HR* Promethazine 25 MG/ML VIAL IVP PRN (18:12)
[2020-05-05] MEDS ORDERED: Acetaminophen 325 MG TABLET PO PRN (18:12)
[2020-05-05] MEDS ORDERED: Ringers Solution, Lactated 1,000 ML IVC ONE ×3 (18:15→23:31)
[2020-05-05] MEDS ORDERED: Aspirin 325 MG TABLET PO ONE ×2 (18:16→21:15)
[2020-05-05] MEDS ORDERED: *HR* OxyCODONE Immed Rel 5 MG TABLET PO PRN ×2 (18:20→22:01)
[2020-05-05] MEDS ORDERED: Piperacillin/Tazobactam 3.375 GM in 0.9 % Sodium Chloride Mini Bag 100 ML IVPB SCH (18:20)
[2020-05-05 19:41] LABS: Troponin I 0.13 ng/mL (< 0.04)
[2020-05-05 20:13] LABS: Bilirubin,Urine Negative (Negative); Blood,Urine Moderate (Negative); Clarity,Urine Clear (Clear); Color,Urine Light-Yellow (Yellow); Glucose,Urine (UA) Normal (Normal); Ketones,Urine 150 mg/dL (Negative); Leukocyte Esterase,Urine Negative (Negative); Mucus,Urine Few per lpf (None-Few); Nitrite,Urine Negative (Negative); PH,Urine 5.5 pH Units (5.0-8.0); Protein,Urine 50 mg/dL (Neg-Trace); Specific Gravity,Urine 1.022 (1.010-1.025); Urobilinogen,Urine Normal (Normal); WBC,Urine 0-3 per hpf (0-3)
[2020-05-05] MEDS: Piperacillin/Tazobactam 3.375 GM in 0.9 % Sodium Chloride Mini Bag 100 ML IVPB SCH (21:52)
[2020-05-05] MEDS ORDERED: Vancomycin 1,250 MG/262.5 ML IV.SOLN IVPB ONE (22:00)
[2020-05-05] MEDS: *HR* Heparin 5,000 UNIT/ML VIAL SQ SCH (23:45)
[2020-05-06 01:14] LABS: Hematocrit 42.9 % (37.5-50.1); Hemoglobin 13.8 g/dL (12.9-16.9); Mean Corpuscular HGB Conc 32.2 g/dL (31.6-35.5); Mean Corpuscular Hemoglobin 29.1 pg (28.0-33.3); Mean Corpuscular Volume 90.3 fL (83.0-100.0); Platelet Count 327 K/mcL (140-400); Red Blood Count 4.75 M/mcL (4.19-5.50); Red Cell Distribution Width 15.8 % (11.5-14.5); White Blood Count 18.4 K/mcL (4.3-11.1)
[2020-05-06 01:53] LABS: BUN/Creatinine Ratio 39 (6-26); Blood Urea Nitrogen 28 mg/dL (8-23); Calcium 8.4 mg/dL (8.6-10.3); Carbon Dioxide 16 mEq/L (23-29); Chloride 117 mEq/L (98-107); Creatine Kinase 9021 Units/L (30-223); Glucose 105 mg/dL (70-105); Osmolality,Calculated 312 (280-300); Potassium 4.2 mEq/L (3.5-5.1); Sodium 148 mEq/L (136-145); eGFR For African Americans > 60 (> 60); eGFR For Non-African Americans > 60 (> 60)
[2020-05-06 05:12] LABS: Acinetobacter baumannii by PCR Not Detected (Not Detect); Candida albicans by PCR Not Detected (Not Detect); Candida glabrata by PCR Not Detected (Not Detect); Candida krusei by PCR Not Detected (Not Detect); Candida parapsilosis by PCR Not Detected (Not Detect); Candida tropicalis by PCR Not Detected (Not Detect); Enterobacter cloacae Cmplx PCR Not Detected (Not Detect); Enterobacteriaceae by PCR Not Detected (Not Detect); Enterococcus by PCR Not Detected (Not Detect); Escherichia coli by PCR Not Detected (Not Detect); Klebsiella oxytoca by PCR Not Detected (Not Detect); Klebsiella pneumoniae by PCR Not Detected (Not Detect); Proteus by PCR Not Detected (Not Detect); Pseudomonas aeruginosa by PCR Not Detected (Not Detect); Serratia marcescens by PCR Not Detected (Not Detect); Staphylococcus aureus by PCR DETECTED (Not Detect); Streptococcus agalactiae(B)PCR Not Detected (Not Detect); Streptococcus by PCR Not Detected (Not Detect); Streptococcus pneumoniae PCR Not Detected (Not Detect); Streptococcus pyogenes (A) PCR Not Detected (Not Detect); mecA Methicillin-Resist Gene Not Detected (Not Detect)
[2020-05-06] MEDS: Piperacillin/Tazobactam 3.375 GM in 0.9 % Sodium Chloride Mini Bag 100 ML IVPB SCH (05:55)
[2020-05-06] MEDS: *HR* Heparin 5,000 UNIT/ML VIAL SQ SCH (06:04)
[2020-05-06 07:19] VITALS: BP 117/63
== END 2020-05-06 06:30 | disposition short-term general hospital (02) ==
LOC: 2NNU → SUATTDRO 17:46
PROVIDERS: ADMIT Internal Medicine; ATTEND Family Medicine